=== PATIENT | male | born 1930 | race Caucasian/White ===

== ENCOUNTER 2016-11-21 15:00 | Emergency (ER) | payer MEDICARE, BC ==
[2016-11-21 16:21] VITALS: BP 131/62
--- NOTE | 2016-11-21 16:35 | UC ---
Laceration HPI - HPI Summary HPI Summary: Raymundo cut his chin while shaving today and couldn't stop the bleeding he is currently taking coumadin bleeding controlled upon arrival to his room at urgent care - History Of Current Complaint Chief Complaint: UCLaceration Stated Complaint: CUT ON CHIN Time Seen by Provider: 11/21/16 16:26 Hx Obtained From: Patient - Allergies/Home Medications Allergies/Adverse Reactions: Allergies Allergy/AdvReac Type Severity Reaction Status Date / Time No Known Allergies Allergy Verified 11/21/16 16:21 Home Medications: Home Medications Atorvastatin* [Lipitor 10 MG*] 5 mg PO DAILY 11/21/16 [History Confirmed ] Warfarin TAB(*) [Coumadin TAB(*)] 5 mg PO DAILY PRN 11/21/16 [History Confirmed 11/21/16] PMH/Surg Hx/FS Hx/Imm Hx Previously Healthy: Yes Cardiovascular History: Hypertension, Atrial Fibrillation Other History Of: Negative For: HIV, Hepatitis B, Hepatitis C - Surgical History Surgical History: Yes Surgery Procedure, Year, and Place: TONSILLECTOMY A YOUNG CHILD. 2000 BILATERAL CATARACT EXTRACTION WITH IOL IMPLANT, [facility] [place]. 1996 [place], [place] - Family History Known Family History: Positive: Cardiac Disease - parenst, Hypertension - parents Negative: Renal Disease, Blood Disorder - Social History Occupation: Retired Lives: With Family Alcohol Use: Occasionally Alcohol Amount: "MODERATELY" Substance Use Type: None Smoking Status (MU): Former Smoker Amount Used/How Often: 1/2 PPD Length of Time of Smoking/Using Tobacco: 11 YEARS Have You Smoked in the Last Year: No When Did the Patient Quit Smoking/Using Tobacco: 1962 - Immunization History Most Recent Tetanus Shot: 11/05 Review of Systems Constitutional: Negative Skin: Other - laceration on chin [id number] Eyes: Negative ENT: Negative Respiratory: Negative Cardiovascular: Negative Gastrointestinal: Negative Genitourinary: Negative Motor: Negative Neurovascular: Negative Musculoskeletal: Negative Neurological: Negative Psychological: Negative All Other Systems Reviewed And Are Negative: Yes Physical Exam Triage Information Reviewed: Yes Appearance: No Pain Distress, Well-Nourished Vital Signs: Initial Vital Signs Temp 98.4 F 11/21/16 16:12 Pulse 71 11/21/16 16:12 Resp 16 11/21/16 16:12 BP 131/62 11/21/16 16:12 Pulse Ox 100 11/21/16 16:12 Vital Signs Reviewed: Yes Eyes: Positive: Conjunctiva Clear ENT: Positive: Pharynx normal, TMs normal Neck: Positive: No Lymphadenopathy Respiratory: Positive: Lungs clear, Normal breath sounds, No respiratory distress, No accessory muscle use Cardiovascular: Positive: RRR, No Murmur, Pulses Normal, Brisk Capillary Refill Abdomen Description: Positive: Nontender, Soft Bowel Sounds: Positive: Present Musculoskeletal: Positive: No Edema Neurological: Positive: Alert Psychological Exam: Normal Skin: Positive: Other - chin small [id number] laceration- bleeding controlled with bandage Laceration Course/Dx - Differential Dx - Laceration/Wound Differental Diagnoses: Laceration Provider Diagnoses: simple laceration [id number] Discharge - Discharge Plan Condition: Stable Disposition: HOME Patient Education Materials: Laceration (ED) Referrals: Brina Sánchez MD [Primary Care Provider] - Additional Instructions: leave you bandage on your chin for 24 hours please have Wilmer nurse check your wound in the morning Please review your discharge instructions. If your symptoms do not improve please call your primary care provider or return to urgent care.
== END 2016-11-21 16:40 | disposition home or self-care (01) ==
LOC: UCEAST 15:00
DX: S01.81XA Laceration without foreign body of other part of head, initial encounter (principal); W45.8XXA Other foreign body or object entering through skin, initial encounter; Y93.E8 Activity, other personal hygiene; Y92.002 Bathroom of unspecified non-institutional (private) residence as the place of occurrence of the external cause; Y99.9 Unspecified external cause status; Z79.01 Long term (current) use of anticoagulants; I48.91 Unspecified atrial fibrillation; Z87.891 Personal history of nicotine dependence; Z95.1 Presence of aortocoronary bypass graft
CPT/HCPCS: 99212; G0463

== ENCOUNTER 2017-02-06 18:58 | Emergency (ER) | payer MEDICARE, BC ==
[2017-02-06 19:04] VITALS: BP 136/54
--- NOTE | 2017-02-06 19:12 | UC ---
Skin Complaint HPI - HPI Summary HPI Summary: 86 year old male cut his left hand with a razor. - History of Current Complaint Chief Complaint: UCLaceration Time Seen by Provider: 02/06/17 19:11 Stated Complaint: WOUND ON HAND Hx Obtained From: Patient Onset/Duration: Sudden Onset Skin Exposure Onset/Duration: Days Ago Onset Severity: Moderate Current Severity: Moderate - Allergy/Home Medications Allergies/Adverse Reactions: Allergies Allergy/AdvReac Type Severity Reaction Status Date / Time No Known Allergies Allergy Verified 02/06/17 19:05 Review of Systems Constitutional: Negative Skin: Other - left hand abrasion Eyes: Negative ENT: Negative Respiratory: Negative Cardiovascular: Negative Gastrointestinal: Negative Genitourinary: Negative Motor: Negative Neurovascular: Negative Musculoskeletal: Negative Neurological: Negative Psychological: Negative Is Patient Immunocompromised?: Yes All Other Systems Reviewed And Are Negative: Yes PMH/Surg Hx/FS Hx/Imm Hx Previously Healthy: Yes Other History Of: Negative For: HIV, Hepatitis B, Hepatitis C - Surgical History Surgical History: Yes Surgery Procedure, Year, and Place: TONSILLECTOMY A YOUNG CHILD. 2000 BILATERAL [place] [facility] [place] - Family History Known Family History: Positive: Cardiac Disease - parenst, Hypertension - parents Negative: Renal Disease, Blood Disorder - Social History Alcohol Use: Occasionally Alcohol Amount: "MODERATELY" Substance Use Type: None Smoking Status (MU): Former Smoker Amount Used/How Often: 1/2 PPD Length of Time of Smoking/Using Tobacco: 11 YEARS Have You Smoked in the Last Year: No When Did the Patient Quit Smoking/Using Tobacco: 1962 - Immunization History Most Recent Tetanus Shot: 11/05 Physical Exam Triage Information Reviewed: Yes Appearance: Well-Appearing Vital Signs: Initial Vital Signs Temp 37.1 C 02/06/17 19:01 Pulse 131 02/06/17 19:01 Resp 18 02/06/17 19:01 BP 136/54 02/06/17 19:01 Pulse Ox 97 02/06/17 19:01 Vital Signs Reviewed: Yes Eye Exam: Normal ENT Exam: Normal Dental Exam: Normal Neck exam: Normal Neck: Positive: 1 Respiratory Exam: Normal Cardiovascular Exam: Normal Abdominal Exam: Normal Musculoskeletal Exam: Normal Neurological Exam: Normal Psychological Exam: Normal Skin: Positive: Other - left hand abrasion Course/Dx - Course Course Of Treatment: silvernitrate placed over abrasion to stop bleeding - Diagnoses Provider Diagnoses: left hand abrasion Discharge - Discharge Plan Condition: Stable Disposition: HOME Prescriptions: Cephalexin CAP* [Keflex CAP*] 500 mg PO TID #15 cap Patient Education Materials: Puncture Wound (ED) Referrals: Brina Sánchez MD [Primary Care Provider] -
[2017-02-06] MEDS ORDERED: Silver Nitrate/Potassium Nitr* 1 EA STICK TOPICAL ONE (19:13)
[2017-02-06] MEDS ORDERED: Gelfoam Sponge SIZE 100* SPONGE TOPICAL ONE (19:14)
== END 2017-02-06 19:32 | disposition home or self-care (01) ==
LOC: UCEAST 18:58
DX: S60.512A Abrasion of left hand, initial encounter (principal); W26.8XXA Contact with other sharp object(s), not elsewhere classified, initial encounter
CPT/HCPCS: 99212; A9270-GY; G0463

== ENCOUNTER 2017-03-25 23:12 | Inpatient (IN) | payer MEDICARE, OTHER ==
[2017-03-26 00:50] LABS: Hematocrit 33 % (42-52); Hemoglobin 11.2 g/dl (14.0-18.0); Mean Corpuscular HGB Conc 34 g/dl (31-36); Mean Corpuscular Hemoglobin 32 pg (27-31); Mean Corpuscular Volume 94 fL (80-94); Mean Platelet Volume 8 um3 (7.4-10.4); Red Blood Count 3.53 10^6/ul (4.0-5.4); Red Cell Distribution Width 18 % (10.5-15); White Blood Count 10.7 10^3/ul (3.5-10.8)
[2017-03-26 00:54] LABS: Add Diff/Slide Review? Slide Review Added; Comments Flag Yes
[2017-03-26 01:06] LABS: Albumin 3.6 g/dL (3.2-5.2); BUN/Creatinine Ratio 21.1 (8-20); Calcium 8.5 mg/dL (8.6-10.3); EGFR African American 102.4 (>60); EGFR Non-African American 79.6 (>60); Globulin 2.5 g/dL (2-4); Potassium 3.6 mmol/L (3.5-5.0); Total Bilirubin 0.7 mg/dL (0.2-1.0); Total Protein 6.1 g/dL (6.4-8.9)
[2017-03-26 01:09] LABS: Troponin I 0.06 ng/mL (<0.04)
[2017-03-26 01:52] LABS: Urine Bacteria Absent (Absent); Urine Bilirubin Negative (Negative); Urine Glucose Negative (Negative); Urine Nitrite Negative (Negative)
--- NOTE | 2017-03-26 05:04 | ED ---
Jeramy Travis Benjamin, scribed for Romario Yoo MD on 03/26/17 at 0016 . Dizziness - HPI Summary HPI Summary: 87yo male BIBA c/o off-balance and weakness in the last few days. Pt describes his symptoms feeling like as if muscles werent responding. Pt was put off atorvastatin 4 weeks ago for 2 weeks, which helped him sleep better, but was then put back on 2 weeks ago. Pt states that he has been feeling worse since. Denies any pain anywhere. - History Of Current Complaint Chief Complaint: EDWeakness Stated Complaint: WEAKNESS,DIZZINESS Hx Obtained From: Patient Onset/Duration: Still Present Timing: Constant Severity Initially: Mild Severity Currently: Mild Character: Weak, Dizzy - off balance - Allergies/Home Medications Allergies/Adverse Reactions: Allergies Allergy/AdvReac Type Severity Reaction Status Date / Time No Known Allergies Allergy Verified 02/06/17 19:05 PMH/Surg Hx/FS Hx/Imm Hx Endocrine/Hematology History: Denies: Hx Diabetes, Hx Thyroid Disease Cardiovascular History: Reports: Hx Coronary Artery Disease - CHOLESTEROL CONTROL WITH MEDS, Hx Hypertension Denies: Hx Congestive Heart Failure, Hx Deep Vein Thrombosis, Hx Myocardial Infarction, Hx Pacemaker/ICD Respiratory History: Denies: Hx Asthma, Hx Chronic Obstructive Pulmonary Disease (COPD), Hx Lung Cancer, Hx Pneumonia, Hx Pulmonary Embolism GI History: Denies: Hx Gall Bladder Disease, Hx Gastrointestinal Bleed, Hx Ulcer, Hx Urosepsis History: Reports: Hx Kidney Stones - HX OF IN THE 50'S, Other Problems/ Disorders - ENLARGE PROSTATE Denies: Hx Renal Disease Musculoskeletal History: Reports: Hx Arthritis - RIGHT WRIST Sensory History: Reports: Hx Contacts or Glasses - READING, Hx Hearing Aid - BILATERAL Opthamlomology History: Reports: Hx Contacts or Glasses - READING Neurological History: Denies: Hx Dementia, Hx Migraine, Hx Seizures, Hx Transient Ischemic Attacks (TIA) Psychiatric History: Reports: Hx Depression - He states that he is a bit depressed, but not on medications. 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 2000 BILATERAL CATARACT EXTRACTION WITH IOL IMPLANT, [facility] [place]. 1996 CABG, [place] Hx Anesthesia Reactions: No Infectious Disease History: No Infectious Disease History: Reports: Hx Shingles Denies: Traveled Outside the [place] in Last 30 Days - Family History Known Family History: Positive: Cardiac Disease - parenst, Hypertension - parents Negative: Renal Disease, Blood Disorder - Social History Alcohol Use: Occasionally Alcohol Amount: "MODERATELY" Substance Use Type: Reports: None Smoking Status (MU): Former Smoker Amount Used/How Often: 1/2 PPD Length of Time of Smoking/Using Tobacco: 11 YEARS Have You Smoked in the Last Year: No Review of Systems Constitutional: Negative Eyes: Negative ENT: Negative Cardiovascular: Negative Respiratory: Negative Gastrointestinal: Negative Genitourinary: Negative Musculoskeletal: Negative Skin: Negative Neurological: Other - off balance Positive: Weakness Psychological: Normal All Other Systems Reviewed And Are Negative: Yes Physical Exam - Summary Physical Exam Summary: Appearance: Well-appearing, Well-nourished. NAD. Skin: Warm Eyes: Normal, EOMI, DILLON ENT: Normal Neck: Supple, nontender Respiratory: Clear to auscultation Cardiovascular: Normal S1 and S2. Irregularly irregular rate and rhythm consistent with A-fib. Abdomen: Soft, nontender Bowel: Present Musculoskeletal: Normal, Strength/ROM Intact Neurological: Normal, A&Ox3. CN 3-12 intact. Normal coordination with finger to nose. Normal strength in all 4 extremities Psychiatric: Normal NIH Stroke Scale: 0. Triage Information Reviewed: Yes Vital Signs On Initial Exam: Initial Vitals Temp Pulse Resp BP Pulse Ox 99 F 109 18 129/58 94 03/25/17 23:14 03/25/17 23:14 03/25/17 23:14 03/25/17 23:14 03/25/17 23:14 Vital Signs Reviewed: Yes - Weld Coma Scale Coma Scale Total: 15 Diagnostics - Vital Signs Vital Signs Temp Pulse Resp BP Pulse Ox 03/25/17 23:14 99 F 109 18 129/58 94 - Laboratory Lab Results: Lab Results 03/26/17 03/26/17 03/26/17 Range/Units 00:37 00:37 00:37 WBC 10.7 (3.5-10.8) 10^3/ul RBC 3.53 L (4.0-5.4) 10^6/ul Hgb 11.2 L (14.0-18.0) g/dl Hct 33 L (42-52) % MCV 94 (80-94) fL MCH 32 H (27-31) pg MCHC 34 (31-36) g/dl RDW 18 H (10.5-15) % Plt Count 272 (150-450) 10^3/ul MPV 8 (7.4-10.4) um3 Neut % (Auto) 85.2 H (38-83) % Lymph % (Auto) 5.9 L (25-47) % Major % (Auto) 7.8 (1-9) % Eos % (Auto) 0.3 (0-6) % Baso % (Auto) 0.8 (0-2) % Absolute Neuts (auto) 9.1 H (1.5-7.7) 10^3/ul Absolute Lymphs (auto) 0.6 L (1.0-4.8) 10^3/ul Absolute Monos (auto) 0.8 (0-0.8) 10^3/ul Absolute Eos (auto) 0 (0-0.6) 10^3/ul Absolute Basos (auto) 0.1 (0-0.2) 10^3/ul Absolute Nucleated RBC 0 10^3/ul Nucleated RBC % 0 INR (Anticoag Therapy) (0.77-1.02) APTT (26.0-36.3) seconds Sodium 138 (133-145) mmol/L Potassium 3.6 (3.5-5.0) mmol/L Chloride 106 (101-111) mmol/L Carbon Dioxide 25 (22-32) mmol/L Anion Gap 7 (2-11) mmol/L BUN 19 (6-24) mg/dL Creatinine 0.90 (0.67-1.17) mg/dL Est GFR ( Amer) 102.4 (>60) Est GFR (Non-Af Amer) 79.6 (>60) BUN/Creatinine Ratio 21.1 H (8-20) Glucose 135 H (70-100) mg/dL Lactic Acid 0.8 (0.5-2.0) mmol/L Calcium 8.5 L (8.6-10.3) mg/dL Magnesium 2.0 (1.9-2.7) mg/dL Total Bilirubin 0.70 (0.2-1.0) mg/dL AST 25 (13-39) U/L ALT 17 (7-52) U/L Alkaline Phosphatase 90 (34-104) U/L Total Creatine Kinase 225 H (10-223) U/L Myoglobin 623.2 H (17.4-105.7) ng/mL Troponin I 0.06 H* (<0.04) ng/mL Total Protein 6.1 L (6.4-8.9) g/dL Albumin 3.6 (3.2-5.2) g/dL Globulin 2.5 (2-4) g/dL Albumin/Globulin Ratio 1.4 (1-3) Urine Color Urine Appearance Urine pH (5-9) Ur Specific [place] (1.010-1.030) Urine Protein (Negative) Urine Ketones (Negative) Urine Blood (Negative) Urine Nitrate (Negative) Urine Bilirubin (Negative) Urine Urobilinogen (Negative) Ur Leukocyte Esterase (Negative) Urine WBC (Auto) (Absent) Urine RBC (Auto) (Absent) Ur Squamous Epith Cells (Absent) Urine Bacteria (Absent) Urine Glucose (Negative) Blood Type Antibody Screen 03/26/17 03/26/17 03/26/17 Range/Units 00:37 00:37 01:19 WBC (3.5-10.8) 10^3/ul RBC (4.0-5.4) 10^6/ul Hgb (14.0-18.0) g/dl Hct (42-52) % MCV (80-94) fL MCH (27-31) pg MCHC (31-36) g/dl RDW (10.5-15) % Plt Count (150-450) 10^3/ul MPV (7.4-10.4) um3 Neut % (Auto) (38-83) % Lymph % (Auto) (25-47) % Major % (Auto) (1-9) % Eos % (Auto) (0-6) % Baso % (Auto) (0-2) % Absolute Neuts (auto) (1.5-7.7) 10^3/ul Absolute Lymphs (auto) (1.0-4.8) 10^3/ul Absolute Monos (auto) (0-0.8) 10^3/ul Absolute Eos (auto) (0-0.6) 10^3/ul Absolute Basos (auto) (0-0.2) 10^3/ul Absolute Nucleated RBC 10^3/ul Nucleated RBC % INR (Anticoag Therapy) 1.54 H (0.77-1.02) APTT 32.6 (26.0-36.3) seconds Sodium (133-145) mmol/L Potassium (3.5-5.0) mmol/L Chloride (101-111) mmol/L Carbon Dioxide (22-32) mmol/L Anion Gap (2-11) mmol/L BUN (6-24) mg/dL Creatinine (0.67-1.17) mg/dL Est GFR ( Amer) (>60) Est GFR (Non-Af Amer) (>60) BUN/Creatinine Ratio (8-20) Glucose (70-100) mg/dL Lactic Acid (0.5-2.0) mmol/L Calcium (8.6-10.3) mg/dL Magnesium (1.9-2.7) mg/dL Total Bilirubin (0.2-1.0) mg/dL AST (13-39) U/L ALT (7-52) U/L Alkaline Phosphatase (34-104) U/L Total Creatine Kinase (10-223) U/L Myoglobin (17.4-105.7) ng/mL Troponin I (<0.04) ng/mL Total Protein (6.4-8.9) g/dL Albumin (3.2-5.2) g/dL Globulin (2-4) g/dL Albumin/Globulin Ratio (1-3) Urine Color Yellow Urine Appearance Clear Urine pH 5.0 (5-9) Ur Specific [place] 1.023 (1.010-1.030) Urine Protein Negative (Negative) Urine Ketones Trace H (Negative) Urine Blood 1+ H (Negative) Urine Nitrate Negative (Negative) Urine Bilirubin Negative (Negative) Urine Urobilinogen Negative (Negative) Ur Leukocyte Esterase Negative (Negative) Urine WBC (Auto) Trace(0-5/hpf) (Absent) Urine RBC (Auto) 1+(3-5/hpf) H (Absent) Ur Squamous Epith Cells Present H (Absent) Urine Bacteria Absent (Absent) Urine Glucose Negative (Negative) Blood Type O Negative Antibody Screen Negative 03/26/17 Range/Units 03:34 WBC (3.5-10.8) 10^3/ul RBC (4.0-5.4) 10^6/ul Hgb (14.0-18.0) g/dl Hct (42-52) % MCV (80-94) fL MCH (27-31) pg MCHC (31-36) g/dl RDW (10.5-15) % Plt Count (150-450) 10^3/ul MPV (7.4-10.4) um3 Neut % (Auto) (38-83) % Lymph % (Auto) (25-47) % Major % (Auto) (1-9) % Eos % (Auto) (0-6) % Baso % (Auto) (0-2) % Absolute Neuts (auto) (1.5-7.7) 10^3/ul Absolute Lymphs (auto) (1.0-4.8) 10^3/ul Absolute Monos (auto) (0-0.8) 10^3/ul Absolute Eos (auto) (0-0.6) 10^3/ul Absolute Basos (auto) (0-0.2) 10^3/ul Absolute Nucleated RBC 10^3/ul Nucleated RBC % INR (Anticoag Therapy) (0.77-1.02) APTT (26.0-36.3) seconds Sodium (133-145) mmol/L Potassium (3.5-5.0) mmol/L Chloride (101-111) mmol/L Carbon Dioxide (22-32) mmol/L Anion Gap (2-11) mmol/L BUN (6-24) mg/dL Creatinine (0.67-1.17) mg/dL Est GFR ( Amer) (>60) Est GFR (Non-Af Amer) (>60) BUN/Creatinine Ratio (8-20) Glucose (70-100) mg/dL Lactic Acid (0.5-2.0) mmol/L Calcium (8.6-10.3) mg/dL Magnesium (1.9-2.7) mg/dL Total Bilirubin (0.2-1.0) mg/dL AST (13-39) U/L ALT (7-52) U/L Alkaline Phosphatase (34-104) U/L Total Creatine Kinase (10-223) U/L Myoglobin (17.4-105.7) ng/mL Troponin I 0.06 H* (<0.04) ng/mL Total Protein (6.4-8.9) g/dL Albumin (3.2-5.2) g/dL Globulin (2-4) g/dL Albumin/Globulin Ratio (1-3) Urine Color Urine Appearance Urine pH (5-9) Ur Specific [place] (1.010-1.030) Urine Protein (Negative) Urine Ketones (Negative) Urine Blood (Negative) Urine Nitrate (Negative) Urine Bilirubin (Negative) Urine Urobilinogen (Negative) Ur Leukocyte Esterase (Negative) Urine WBC (Auto) (Absent) Urine RBC (Auto) (Absent) Ur Squamous Epith Cells (Absent) Urine Bacteria (Absent) Urine Glucose (Negative) Blood Type Antibody Screen Result Diagrams: 03/26/17 00:37 03/26/17 00:37 Lab Statement: Any lab studies that have been ordered have been reviewed, and results considered in the medical decision making process. - CT Head CT CT Interpretation: No Acute Changes CT Interpretation Completed By: Radiologist - ED physician has reviewed this radiology report and agrees. - EKG 2312. Cardiac Rate: Tachycardia EKG Rhythm: Atrial Fibrillation - 104bpm EKG Interpretation: RBBB Dizzy Course/Dx - Course Assessment/Plan: lives at indep living facility, likely gait instability with component of statin intolerance and muscle muscular involvement given labs and elevated myoglobin, ct negative, admitted for further care - Diagnoses Provider Diagnoses: Gait instability, Statin-induced myositis - Provider Notifications Discussed Care Of Patient With: Jaylan Velázquez Time Discussed With Above Provider: 04:59 Discharge - Discharge Plan Condition: Stable Disposition: ADMITTED TO [facility] Referrals: Brina Sánchez MD [Primary Care Provider] - The documentation as recorded by the Jeramy wilhelm Benjamin accurately reflects the service I personally performed and the decisions made by , Romario Yoo MD.
[2017-03-26] MEDS ORDERED: Ondansetron INJ* 2 MG/ML VIAL IV PRN (06:06)
[2017-03-26] MEDS ORDERED: Acetaminophen TAB* 325 MG PO PRN (06:06)
[2017-03-26] MEDS ORDERED: Albuterol 2.5 MG/3 ML NEB.SOL* (0.083%) INH PRN (06:06)
--- NOTE | 2017-03-26 06:27 | HP ---
H&P (Free Text) History and Physical: PCP: Awilda Sánchez MD Cardiology: Sarah Jesus MD Date/Time: 03/26/2017 0600 CC: BLE weakness, gait abnormality HPI: Mr Vora is an 87YO male HX CAD, AFIB, cardiomyopathy presents after getting down on the floor to pick remover pieces of a dropped phone, finding himself unable to get back up, and having to call EMS. He relates his BLE have been progressively weakening over the past year since being changed from lovastatin to atorvastatin. 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 However, it was recommended to restart as his cholesterol was increasing. He denies chest pain, SOB, N/V, palpitations, light-headedness, cough, congestion, F/C, or other issues. PMedHx CAD/4vCABG AFIB, chronic 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% HLD cholelithiasis nephrolithiasis gout BPH Ambulatory Orders Nursing to reconcile. Aspirin [Aspir-81] 81 mg PO BEDTIME 11/29/12 Finasteride TAB* [Proscar TAB*] 5 mg PO QPM 11/29/12 Lovastatin [Mevacor] 20 mg PO QPM 11/29/12 Tamsulosin CAP* [Flomax CAP*] 0.4 mg PO QPM 11/29/12 Warfarin TAB(*) [Coumadin TAB(*)] 2.5 mg PO DAILY PRN 11/29/12 Pilocarpine TAB (NF) 5 mg PO QPM 05/20/15 Atorvastatin* [Lipitor 10 MG*] 5 mg PO DAILY 11/21/16 Warfarin TAB(*) [Coumadin TAB(*)] 5 mg PO DAILY PRN 11/21/16 Cephalexin CAP* [Keflex CAP*] 500 mg PO TID #15 cap 02/06/17 Allergies No Known Allergies Allergy (Verified 02/06/17 19:05) PSurgHx OU cataract extractions tonsillectomy 4vCABG SocHx: former smoker, 1 glass wine daily, denies recreational drugs; full code status FamHx: reviewed, non-contributory to presentation ROS: as above, otherwise reviewed and all were negative vitals: Vital Signs Temp 37.2 C 03/25/17 23:14 Pulse 76 03/26/17 05:00 Resp 18 03/26/17 05:00 BP 108/58 03/26/17 02:00 Pulse Ox 93 03/26/17 05:00 Intake & Output 03/25/17 03/25/17 03/26/17 11:59 23:59 11:59 Weight 68.946 kg Constitutional: NAD, normally developed, well-nourished elderly white male HEENM: atraumatic; sclera/conjunctiva: anicteric/clear; hearing: clinically intact; oropharynx: clear, mucosa moist Neck: soft tissue: non-tender; thyroid: normal Pulmonary: clear to auscultation bilaterally, good aeration, no accessory muscle use CV: RR/RR, normal S1S2, no carotid bruit, no jugular venous distention, 2+ B DP/ PT, no edema Abdominal: soft, non-distended, non-tender, no rebound/guarding/rigidity, normoactive bowel sounds, no hepatosplenomegaly or masses, no costovertebral angle tenderness Musculoskeletal: general: grossly intact, no palpable tenderness Integumental: normal appearance and texture of exposed skin Psychiatric orientation: AA&O to PPS affect: calm mood: cooperative eye contact: good content: reliable responses: timely insight: fair Testing: Lab Results 03/26/17 03/26/17 03/26/17 Range/Units 00:37 00:37 00:37 WBC 10.7 (3.5-10.8) 10^3/ul RBC 3.53 L (4.0-5.4) 10^6/ul Hgb 11.2 L (14.0-18.0) g/dl Hct 33 L (42-52) % MCV 94 (80-94) fL MCH 32 H (27-31) pg MCHC 34 (31-36) g/dl RDW 18 H (10.5-15) % Plt Count 272 (150-450) 10^3/ul MPV 8 (7.4-10.4) um3 Neut % (Auto) 85.2 H (38-83) % Lymph % (Auto) 5.9 L (25-47) % [place] % (Auto) 7.8 (1-9) % Eos % (Auto) 0.3 (0-6) % Baso % (Auto) 0.8 (0-2) % Absolute Neuts (auto) 9.1 H (1.5-7.7) 10^3/ul Absolute Lymphs (auto) 0.6 L (1.0-4.8) 10^3/ul Absolute Monos (auto) 0.8 (0-0.8) 10^3/ul Absolute Eos (auto) 0 (0-0.6) 10^3/ul Absolute Basos (auto) 0.1 (0-0.2) 10^3/ul Absolute Nucleated RBC 0 10^3/ul Nucleated RBC % 0 INR (Anticoag Therapy) (0.77-1.02) APTT (26.0-36.3) seconds Sodium 138 (133-145) mmol/L Potassium 3.6 (3.5-5.0) mmol/L Chloride 106 (101-111) mmol/L Carbon Dioxide 25 (22-32) mmol/L Anion Gap 7 (2-11) mmol/L BUN 19 (6-24) mg/dL Creatinine 0.90 (0.67-1.17) mg/dL Est GFR ( Amer) 102.4 (>60) Est GFR (Non-Af Amer) 79.6 (>60) BUN/Creatinine Ratio 21.1 H (8-20) Glucose 135 H (70-100) mg/dL Lactic Acid 0.8 (0.5-2.0) mmol/L Calcium 8.5 L (8.6-10.3) mg/dL Magnesium 2.0 (1.9-2.7) mg/dL Total Bilirubin 0.70 (0.2-1.0) mg/dL AST 25 (13-39) U/L ALT 17 (7-52) U/L Alkaline Phosphatase 90 (34-104) U/L Total Creatine Kinase 225 H (10-223) U/L Myoglobin 623.2 H (17.4-105.7) ng/mL Troponin I 0.06 H* (<0.04) ng/mL Total Protein 6.1 L (6.4-8.9) g/dL Albumin 3.6 (3.2-5.2) g/dL Globulin 2.5 (2-4) g/dL Albumin/Globulin Ratio 1.4 (1-3) Urine Color Urine Appearance Urine pH (5-9) Ur Specific [place] (1.010-1.030) Urine Protein (Negative) Urine Ketones (Negative) Urine Blood (Negative) Urine Nitrate (Negative) Urine Bilirubin (Negative) Urine Urobilinogen (Negative) Ur Leukocyte Esterase (Negative) Urine WBC (Auto) (Absent) Urine RBC (Auto) (Absent) Ur Squamous Epith Cells (Absent) Urine Bacteria (Absent) Urine Glucose (Negative) Blood Type Antibody Screen 03/26/17 03/26/17 03/26/17 Range/Units 00:37 00:37 01:19 WBC (3.5-10.8) 10^3/ul RBC (4.0-5.4) 10^6/ul Hgb (14.0-18.0) g/dl Hct (42-52) % MCV (80-94) fL MCH (27-31) pg MCHC (31-36) g/dl RDW (10.5-15) % Plt Count (150-450) 10^3/ul MPV (7.4-10.4) um3 Neut % (Auto) (38-83) % Lymph % (Auto) (25-47) % [place] % (Auto) (1-9) % Eos % (Auto) (0-6) % Baso % (Auto) (0-2) % Absolute Neuts (auto) (1.5-7.7) 10^3/ul Absolute Lymphs (auto) (1.0-4.8) 10^3/ul Absolute Monos (auto) (0-0.8) 10^3/ul Absolute Eos (auto) (0-0.6) 10^3/ul Absolute Basos (auto) (0-0.2) 10^3/ul Absolute Nucleated RBC 10^3/ul Nucleated RBC % INR (Anticoag Therapy) 1.54 H (0.77-1.02) APTT 32.6 (26.0-36.3) seconds Sodium (133-145) mmol/L Potassium (3.5-5.0) mmol/L Chloride (101-111) mmol/L Carbon Dioxide (22-32) mmol/L Anion Gap (2-11) mmol/L BUN (6-24) mg/dL Creatinine (0.67-1.17) mg/dL Est GFR ( Amer) (>60) Est GFR (Non-Af Amer) (>60) BUN/Creatinine Ratio (8-20) Glucose (70-100) mg/dL Lactic Acid (0.5-2.0) mmol/L Calcium (8.6-10.3) mg/dL Magnesium (1.9-2.7) mg/dL Total Bilirubin (0.2-1.0) mg/dL AST (13-39) U/L ALT (7-52) U/L Alkaline Phosphatase (34-104) U/L Total Creatine Kinase (10-223) U/L Myoglobin (17.4-105.7) ng/mL Troponin I (<0.04) ng/mL Total Protein (6.4-8.9) g/dL Albumin (3.2-5.2) g/dL Globulin (2-4) g/dL Albumin/Globulin Ratio (1-3) Urine Color Yellow Urine Appearance Clear Urine pH 5.0 (5-9) Ur Specific [place] 1.023 (1.010-1.030) Urine Protein Negative (Negative) Urine Ketones Trace H (Negative) Urine Blood 1+ H (Negative) Urine Nitrate Negative (Negative) Urine Bilirubin Negative (Negative) Urine Urobilinogen Negative (Negative) Ur Leukocyte Esterase Negative (Negative) Urine WBC (Auto) Trace(0-5/hpf) (Absent) Urine RBC (Auto) 1+(3-5/hpf) H (Absent) Ur Squamous Epith Cells Present H (Absent) Urine Bacteria Absent (Absent) Urine Glucose Negative (Negative) Blood Type O Negative Antibody Screen Negative 03/26/17 Range/Units 03:34 WBC (3.5-10.8) 10^3/ul RBC (4.0-5.4) 10^6/ul Hgb (14.0-18.0) g/dl Hct (42-52) % MCV (80-94) fL MCH (27-31) pg MCHC (31-36) g/dl RDW (10.5-15) % Plt Count (150-450) 10^3/ul MPV (7.4-10.4) um3 Neut % (Auto) (38-83) % Lymph % (Auto) (25-47) % [place] % (Auto) (1-9) % Eos % (Auto) (0-6) % Baso % (Auto) (0-2) % Absolute Neuts (auto) (1.5-7.7) 10^3/ul Absolute Lymphs (auto) (1.0-4.8) 10^3/ul Absolute Monos (auto) (0-0.8) 10^3/ul Absolute Eos (auto) (0-0.6) 10^3/ul Absolute Basos (auto) (0-0.2) 10^3/ul Absolute Nucleated RBC 10^3/ul Nucleated RBC % INR (Anticoag Therapy) (0.77-1.02) APTT (26.0-36.3) seconds Sodium (133-145) mmol/L Potassium (3.5-5.0) mmol/L Chloride (101-111) mmol/L Carbon Dioxide (22-32) mmol/L Anion Gap (2-11) mmol/L BUN (6-24) mg/dL Creatinine (0.67-1.17) mg/dL Est GFR ( Amer) (>60) Est GFR (Non-Af Amer) (>60) BUN/Creatinine Ratio (8-20) Glucose (70-100) mg/dL Lactic Acid (0.5-2.0) mmol/L Calcium (8.6-10.3) mg/dL Magnesium (1.9-2.7) mg/dL Total Bilirubin (0.2-1.0) mg/dL AST (13-39) U/L ALT (7-52) U/L Alkaline Phosphatase (34-104) U/L Total Creatine Kinase (10-223) U/L Myoglobin (17.4-105.7) ng/mL Troponin I 0.06 H* (<0.04) ng/mL Total Protein (6.4-8.9) g/dL Albumin (3.2-5.2) g/dL Globulin (2-4) g/dL Albumin/Globulin Ratio (1-3) Urine Color Urine Appearance Urine pH (5-9) Ur Specific [place] (1.010-1.030) Urine Protein (Negative) Urine Ketones (Negative) Urine Blood (Negative) Urine Nitrate (Negative) Urine Bilirubin (Negative) Urine Urobilinogen (Negative) Ur Leukocyte Esterase (Negative) Urine WBC (Auto) (Absent) Urine RBC (Auto) (Absent) Ur Squamous Epith Cells (Absent) Urine Bacteria (Absent) Urine Glucose (Negative) Blood Type Antibody Screen ECG, personally reviewed: AFIB RBBB rate 104, T-wave inversions III/AVF, occasional PVC; no comparison available CXR, personally reviewed: no acute process CT brain WO, personally reviewed: No acute brain parenchymal abnormality. No hemorrhage, mass, or acute territorial infarct. Atrophy and chronic small vessel ischemic changes. Mucoperiosteal thickening paranasal sinuses with fluid in left maxillary sinus. Visualized mastoid air cells clear. Impression: 87M presenting with gradual onset BLE weakness coinciding with changing lovastatin to atorvastatin culminating tonight in a fall from which he could not get up; elevated total CK & myoglobin DIAGNOSIS & PLAN Primary gait abnormality : PT evaluation : hold statins for now : trend total CK & myoglobin : supplemental oxygen : supportive care elevated troponin, no baseline to compare : suspect 2nd AFIB : trend : telemetry Secondary CAD/4vCABG : review meds once reconciled AFIB, chronic : review meds once reconciled 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% : review meds once reconciled HLD : hold statins as above gout : review meds once reconciled BPH : review meds once reconciled Admission Rational: observation for gait abnormality & fall DVTp: continue warfarin Code Status: full
[2017-03-26 07:53] LABS: Troponin I 0.06 ng/mL (<0.04)
--- NOTE | 2017-03-26 08:13 | RAD ---
HISTORY: Weakness COMPARISONS: None VIEWS: 1: frontal portable view of the chest at 12:15 AM FINDINGS: LINES AND TUBES: None. CARDIOMEDIASTINAL SILHOUETTE: The cardiomediastinal silhouette is normal for portable technique. PLEURA: The costophrenic angles are sharp. No pleural abnormalities are noted. LUNG PARENCHYMA: There is minimal patchy alveolar opacification of left lung base ABDOMEN: The upper abdomen is clear. There is no subphrenic gas. BONES AND SOFT TISSUES: The patient is status post median sternotomy. IMPRESSION: MINIMAL PATCHY ATELECTASIS VERSUS EARLY CONSOLIDATION OF THE LEFT LUNG BASE
--- NOTE | 2017-03-26 08:20 | RAD ---
HISTORY: Weakness COMPARISONS: None TECHNIQUE: Multiple contiguous axial CT scans were obtained of the head without intravenous contrast. FINDINGS: HEMORRHAGE/INFARCT: There is no hemorrhage or acute infarct. MASSES/SHIFT: There is no mass or shift. EXTRA-AXIAL SPACES: There are no extra-axial fluid collections. SULCI AND VENTRICLES: The sulci and ventricles are normal in size and position for the patient's stated age. CEREBRUM: There is mild hypoattenuation of the periventricular and subcortical white matter. BRAINSTEM: There are no focal parenchymal abnormalities. CEREBELLUM: There are no focal parenchymal abnormalities. VESSELS: There is calcification of the cavernous segments of the internal carotid arteries bilaterally and of the distal vertebral arteries bilaterally. PARANASAL SINUSES: There is mucosal thickening of ethmoid air cells and maxillary sinuses bilaterally with air-fluid levels within maxillary sinuses bilaterally. ORBITS: The orbits are unremarkable. BONES AND SOFT TISSUE: No bone or soft tissue abnormalities are noted. OTHER: None IMPRESSION: 1. NO ACUTE INTRACRANIAL PATHOLOGY. 2. CHRONIC SMALL VESSEL ISCHEMIC CHANGES. 3. MODERATE SINUS MUCOSAL INFLAMMATORY DISEASE, WITH AIR-FLUID LEVELS IN THE MAXILLARY SINUSES BILATERALLY. IN THE CORRECT CLINICAL SETTING, THIS MAY REPRESENT ACUTE SINUSITIS
[2017-03-26 10:18] LABS: Phosphorus 2.9 mg/dL (2.5-5.0)
[2017-03-26] MEDS: Docusate CAP* 100 MG PO SCH ×2 (10:38→21:47)
[2017-03-27] MEDS: Omeprazole CAP* 20 MG PO SCH (06:25)
[2017-03-27 06:29] LABS: Hematocrit 32 % (42-52); Mean Corpuscular HGB Conc 34 g/dl (31-36); Mean Corpuscular Hemoglobin 32 pg (27-31); Mean Corpuscular Volume 93 fL (80-94); Mean Platelet Volume 8 um3 (7.4-10.4); Red Blood Count 3.44 10^6/ul (4.0-5.4); Red Cell Distribution Width 17 % (10.5-15); White Blood Count 11.4 10^3/ul (3.5-10.8)
[2017-03-27 06:50] LABS: Albumin 3.1 g/dL (3.2-5.2); BUN/Creatinine Ratio 22.7 (8-20); Calcium 8.4 mg/dL (8.6-10.3); EGFR African American 146.5 (>60); EGFR Non-African American 113.9 (>60); Globulin 2.4 g/dL (2-4); Potassium 3.6 mmol/L (3.5-5.0); Total Bilirubin 1.1 mg/dL (0.2-1.0); Total Protein 5.5 g/dL (6.4-8.9)
[2017-03-27 07:13] LABS: Troponin I 0.05 ng/mL (<0.04)
[2017-03-27] MEDS ORDERED: Warfarin TAB(*) 5 MG PO ONE ×2 (09:00→17:00)
[2017-03-27] MEDS: Finasteride TAB* 5 MG PO SCH (10:19)
[2017-03-27] MEDS: Docusate CAP* 100 MG PO SCH ×3 (10:19→22:03)
[2017-03-27 11:47] LABS: C Reactive Protein 51.84 mg/L (< 5.00)
--- NOTE | 2017-03-27 12:57 | RAD ---
HISTORY: Cough COMPARISONS: March 26, 2017 VIEWS: 4: Frontal dual-energy and lateral views of the chest. FINDINGS: CARDIOMEDIASTINAL SILHOUETTE: The cardiomediastinal silhouette is normal. ROSALVA: The rosalva are normal. PLEURA: The costophrenic angles are sharp. No pleural abnormalities are noted. LUNG PARENCHYMA: There is hyperinflation with flattening of the diaphragm and expansion of the AP diameter of the chest. There is patchy alveolar opacification of the left lower lung near the diaphragm and angle localizing to the left upper lobe. This is progressed from the previous examination. ABDOMEN: The upper abdomen is clear. There is no subphrenic gas. BONES AND SOFT TISSUES: The patient is status post median sternotomy. OTHER: None. IMPRESSION: PROGRESSION OF AIRSPACE DISEASE OF THE LEFT LOWER LUNG. RECOMMEND CONTINUED FOLLOW-UP UNTIL RESOLUTION TO EXCLUDE UNDERLYING PULMONARY PARENCHYMAL PATHOLOGY.
[2017-03-27] MEDS ORDERED: Azithromycin IV(*) 500 MG in D5W 250 ML BAG IVPB ONE (21:00)
[2017-03-27] MEDS ORDERED: Azithromycin IV(*) 500 MG in NS 0.9% 250 ML* 250 ML IVPB ONE (21:00)
[2017-03-27] MEDS: Tamsulosin CAP* 0.4 MG PO SCH (22:03)
[2017-03-28 06:53] LABS: Hematocrit 33 % (42-52); Mean Corpuscular HGB Conc 34 g/dl (31-36); Mean Corpuscular Hemoglobin 32 pg (27-31); Mean Corpuscular Volume 93 fL (80-94); Mean Platelet Volume 8 um3 (7.4-10.4); Red Blood Count 3.48 10^6/ul (4.0-5.4); Red Cell Distribution Width 17 % (10.5-15); White Blood Count 10.7 10^3/ul (3.5-10.8)
[2017-03-28 07:01] LABS: Add Diff/Slide Review? Slide Review Added; BUN/Creatinine Ratio 20.3 (8-20); C Reactive Protein 70.32 mg/L (< 5.00); Calcium 8.5 mg/dL (8.6-10.3); Comments Flag Yes; EGFR African American 151.8 (>60); Potassium 3.5 mmol/L (3.5-5.0)
[2017-03-28] MEDS: Omeprazole CAP* 20 MG PO SCH (07:33)
[2017-03-28 08:26] LABS: Hypochromasia 1+
[2017-03-28] MEDS: Finasteride TAB* 5 MG PO SCH (09:13)
[2017-03-28] MEDS: Docusate CAP* 100 MG PO SCH ×2 (09:13→22:28)
[2017-03-28] MEDS: cefTRIAXone* 1 GM in NS 0.9% 50 ML BAG IVPB SCH (12:26)
[2017-03-28] MEDS ORDERED: Warfarin TAB(*) 5 MG PO ONE (17:00)
[2017-03-28] MEDS: Tamsulosin CAP* 0.4 MG PO SCH (22:28)
[2017-03-28] MEDS: Azithromycin IV(*) 500 MG in NS 0.9% 250 ML* 250 ML IVPB SCH (22:28)
[2017-03-29] MEDS: Omeprazole CAP* 20 MG PO SCH (06:52)
[2017-03-29 07:50] LABS: Hematocrit 31 % (42-52); Hemoglobin 10.7 g/dl (14.0-18.0); Mean Corpuscular HGB Conc 34 g/dl (31-36); Mean Corpuscular Hemoglobin 32 pg (27-31); Mean Corpuscular Volume 93 fL (80-94); Mean Platelet Volume 8 um3 (7.4-10.4); Red Blood Count 3.37 10^6/ul (4.0-5.4); Red Cell Distribution Width 17 % (10.5-15); White Blood Count 9.8 10^3/ul (3.5-10.8)
[2017-03-29 08:11] LABS: BUN/Creatinine Ratio 17.9 (8-20); C Reactive Protein 55.17 mg/L (< 5.00); Calcium 8.4 mg/dL (8.6-10.3); EGFR Non-African American 111.9 (>60); Globulin 2.6 g/dL (2-4); Potassium 3.2 mmol/L (3.5-5.0); Total Bilirubin 0.7 mg/dL (0.2-1.0); Total Protein 5.6 g/dL (6.4-8.9)
[2017-03-29] MEDS: Docusate CAP* 100 MG PO SCH ×2 (08:58→22:15)
[2017-03-29] MEDS: Finasteride TAB* 5 MG PO SCH (08:58)
[2017-03-29] MEDS: Potassium Chlor TAB* 20 MEQ TAB.ER PO SCH ×2 (11:58→16:16)
[2017-03-29] MEDS: cefTRIAXone* 1 GM in NS 0.9% 50 ML BAG IVPB SCH (11:58)
[2017-03-29] MEDS ORDERED: Warfarin TAB(*) 5 MG PO ONE (17:00)
[2017-03-29] MEDS: Azithromycin IV(*) 500 MG in NS 0.9% 250 ML* 250 ML IVPB SCH (22:15)
[2017-03-29] MEDS: Tamsulosin CAP* 0.4 MG PO SCH (22:15)
[2017-03-30] MEDS: Omeprazole CAP* 20 MG PO SCH (06:48)
[2017-03-30] MEDS: Finasteride TAB* 5 MG PO SCH (07:24)
[2017-03-30] MEDS: Docusate CAP* 100 MG PO SCH (07:25)
[2017-03-30 08:03] LABS: Hematocrit 32 % (42-52); Hemoglobin 10.8 g/dl (14.0-18.0); Mean Corpuscular HGB Conc 34 g/dl (31-36); Mean Corpuscular Hemoglobin 32 pg (27-31); Mean Corpuscular Volume 93 fL (80-94); Mean Platelet Volume 8 um3 (7.4-10.4); Red Blood Count 3.41 10^6/ul (4.0-5.4); Red Cell Distribution Width 17 % (10.5-15); White Blood Count 9.1 10^3/ul (3.5-10.8)
[2017-03-30 08:24] LABS: BUN/Creatinine Ratio 17.1 (8-20); C Reactive Protein 36.4 mg/L (< 5.00); Calcium 8.8 mg/dL (8.6-10.3); EGFR African American 136.9 (>60); EGFR Non-African American 106.4 (>60); Potassium 3.6 mmol/L (3.5-5.0)
[2017-03-30 11:02] VITALS: BP 110/63
[2017-03-30] MEDS: cefTRIAXone* 1 GM in NS 0.9% 50 ML BAG IVPB SCH (12:32)
--- NOTE | 2017-03-30 12:59 | TRS ---
CC: [facility]; Piotr Jesus MD; Brina Sánchez MD DISCHARGE SUMMARY: DATE OF ADMISSION: 03/26/17. DATE OF DISCHARGE: 03/30/17. TRANSFER DIAGNOSES: 1. Pneumonia. 2. Rhabdomyolysis, either secondary to statins, versus being on the floor and struggling to get up. 3. Chronic atrial fibrillation. 4. Maxillary sinus inflammation on CT.. 5. Xerostomia. 6. Coronary artery disease status post coronary artery bypass surgery. 7. Anemia of acute illness. 8. History of reduced ejection fraction 40% to 45%. 9. Cholelithiasis. 10. Nephrolithiasis. 11. History of benign prostatic hyperplasia. 12. History of vitamin D deficiency. 13. Hypokalemia, resolved. 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 He had been feeling weak recently. Please see the dictated admission note for details of the present illness, past medical history, family history, social and personal history, review of systems, and physical examination. LABORATORY DATA: CBC on admission: WBC 10.7, H and H 11.2/33, MCV 94, PLT 272, 000. Subsequent white count went up to 11.4 on 03/27/17 was down to 9.1 on 03/30. INRs were 1.54 on 03/26/17, and then up to 2.86 on 03/30/17. Chemistries: On admission 03/26/17, sodium 138, potassium 3.6, chloride 106, CO2 25, BUN and creatinine 19/0.90, glucose 135, calcium 8.5. Rest of the comprehensive metabolic panel was essentially within normal limits. Subsequent chemistries remained in the normal range except for potassium going down to 3.2 on 03/29/17 , repleted with up to 3.6 on 03/30/17. On admission, he had a mildly elevated troponin, was serially followed and was 0.06, 0.06, and then 0.05. Total CK on 03/26/17 was 225, repeat was 470 on 03/26/17, and came down to 459 on 03/27/17, and 221 on 03/28/17. Myoglobin was 623 on 03/26/17, and 411.5 on 03/26/17, and 168 on 03/27/17, and 95 on 03/28/17. Procalcitonin was 0.01 on 03/27/17, less than 0.1 on 03/30/17. Urinalysis on 03/26/17 yellow, clear, specific gravity 1.023, pH 5, dipstick positive for trace ketones, 1+ blood, 1+ rbc's. Urine had squamous epithelial cells present. Sputum Gram stain on 03/28/17 showed 3+ neutrophils, 1+ epithelial cells, 3+ gram-positive cocci, 1+ gram- negative coccobacilli, 1+ gram-positive bacilli. Blood type was O negative. IMAGING: Chest x-ray on 03/26/17 showed minimal patchy atelectasis versus early consolidation of the left lung base. Brain CT on 03/26/17, showed no acute intracranial pathology, chronic small vessel ischemic changes, moderate sinus mucosa with inflammatory disease with air fluid levels in the maxillary sinus bilaterally. Chest x-ray on 03/27/17, showed progression of airspace disease in the left lower lung, recommended continued followup until resolution. HOSPITAL COURSE: Patient was initially admitted. It was felt that his primary problem was his weakness and it was decided to hold his atorvastatin, trend total CK and myoglobin and give supportive care. With regards to his elevated troponin, it was felt to be due to his atrial fib, and it was felt that he should be placed on telemetry and it should be trended. Initially he remained quite weak. He states that he has not felt well since he was placed back on atorvastatin. On the day following admission, he was coughing. Chest x-ray was repeated and the increased infiltrate was noted. He was started on antibiotics. He received azithromycin and ceftriaxone. With treatment of his antibiotics his cough improved. He received physical therapy while in the hospital. His strength improved. He remained in atrial fib with occasional pauses on telemetry, no other arrhythmias. His sputum C and S is still pending at the time of discharge. He had improved. He received 3 days azithromycin 500 mg. PHYSICAL EXAMINATION: At the time of discharge his vital signs are blood pressure 110/63, pulse 82, respirations 16, temperature 97.2. Of note, he was afebrile during his hospitalization, O2 sat was 99% on room air. On exam, his lungs which had shown rales at the left base were clear with diminished breath sounds at the left base. Heart was irregularly irregular. Abdomen was nontender. He had no calf tenderness or edema. It was felt that he was stable for discharge. At the time of discharge, I had communication with Mary and reviewed orders. His diet is regular. His allergies were none. His activity is up as tolerated. We had an advanced care planning discussion. We discussed the options for resuscitation versus no resuscitation. At this point, he wants to be a full code. His son Jairon was present for this discussion. His diet will be regular at the time of discharge. Allergies, none. Activity up as tolerated. MEDICATIONS: 1. Flomax 0.4 mg p.o. q. evening. 2. Finasteride 5 mg p.o. daily. 3. Warfarin 2.5 mg p.o. daily, start 03/31. 4. Aspirin 81 mg p.o. daily. 5. Acetaminophen 650 mg p.o., q. 4 h. p.r.n. pain. 6. Cefuroxime 500 mg p.o. twice a day for 5 days. 7. Pilocarpine 5 mg p.o. t.i.d. 8. Xylitol mints 1 p.o. at h.s. 9. Biotene mouth wash 1 p.o. at h.s. 10. Vitamin D3 at 2000 units p.o. daily. 11. Colace 200 mg p.o. daily as needed for constipation. He is a full code. Physical therapy is being ordered. He should have an INR on 04/01/17. He should have hot packs to his right wrist because of erythema at the right wrist where the previous IV had been inserted. [id number]/[facility] #: [id number] MTDD
== END 2017-03-30 13:40 | DRG 557 ==
LOC: ED 23:12 → MED 03-26 06:02 → OBSVTOIN 03-27 10:33
PROVIDERS: ADMIT Hospitalist; ATTEND Internal Medicine Geriatric Medicine
DX: M62.82 Rhabdomyolysis (principal); J18.9 Pneumonia, unspecified organism; I42.9 Cardiomyopathy, unspecified; I48.2 Chronic atrial fibrillation; D64.9 Anemia, unspecified; Z95.1 Presence of aortocoronary bypass graft; I25.10 Atherosclerotic heart disease of native coronary artery without angina pectoris; E78.5 Hyperlipidemia, unspecified; N40.0 Benign prostatic hyperplasia without lower urinary tract symptoms; M10.9 Gout, unspecified; R26.9 Unspecified abnormalities of gait and mobility; R74.8 Abnormal levels of other serum enzymes; M19.031 Primary osteoarthritis, right wrist; F32.9 Major depressive disorder, single episode, unspecified; Z96.1 Presence of intraocular lens; R40.2412 Glasgow coma scale score 13-15, at arrival to emergency department; J32.0 Chronic maxillary sinusitis; K11.7 Disturbances of salivary secretion; E87.6 Hypokalemia; T46.6X5A Adverse effect of antihyperlipidemic and antiarteriosclerotic drugs, initial encounter; Z98.42 Cataract extraction status, left eye; Z98.41 Cataract extraction status, right eye; Z87.891 Personal history of nicotine dependence; Z87.442 Personal history of urinary calculi; Z97.4 Presence of external hearing-aid; Z85.828 Personal history of other malignant neoplasm of skin; Z82.49 Family history of ischemic heart disease and other diseases of the circulatory system; Z72.89 Other problems related to lifestyle; Y92.9 Unspecified place or not applicable; Z79.01 Long term (current) use of anticoagulants; Z79.82 Long term (current) use of aspirin
CPT/HCPCS: 36415; 70450; 71010; 71020; 80048; 80053; 81003; 81015; 82550; 83605; 83735; 83874; 84100; 84145; 84484; 85025; 85027; 85610; 85730; 86140; 86850; 86900; 86901; 87070; 87205; 93005; A9270-GY; G0378; G8978-GP-CJ; G8979-GP-CI; J0456; J0696

== ENCOUNTER 2018-01-18 20:49 | Inpatient (IN) | payer MEDICARE, BC ==
--- NOTE | 2018-01-18 21:19 | ED ---
Head Injury - HPI Summary HPI Summary: The pt is an 87 y/o male BIBA c/o of a head injury status post a mechanical fall at 20:00 today. He lost balance and fell hitting his aleah occipital part of his head and injuring his LUE. The pain rated 4/10 in intensity is descried as aching. He arrived from [facility] in [place]. The pt reports dizziness and weakness but denies abd pain, and neck pain. - History Of Current Complaint Chief Complaint: EDHeadInjury Stated Complaint: FALL, DIZZINESS Time Seen by Provider: 01/18/18 21:07 Hx Obtained From: Patient Mechanism Of Injury: Fall From A Standing Position Onset/Duration: Started Hours Ago - At 1999 today, Still Present Severity Currently: Mild Pain Intensity: 4 Pain Scale Used: 0-10 Numeric Location of Head Injury: Occipital Character: Aching Associated Signs And Symptoms: Negative - Neck pain, abdominal pain, Other: - LUE abbrasion - Allergies/Home Medications Allergies/Adverse Reactions: Allergies Allergy/AdvReac Type Severity Reaction Status Date / Time No Known Allergies Allergy Verified 02/06/17 19:05 PMH/Surg Hx/FS Hx/Imm Hx Previously Healthy: No Endocrine/Hematology History: Denies: Hx Diabetes, Hx Thyroid Disease Cardiovascular History: Reports: Hx Coronary Artery Disease, Hx Hypertension Denies: Hx Congestive Heart Failure, Hx Deep Vein Thrombosis, Hx Myocardial Infarction, Hx Pacemaker/ICD Comment Only: Other Cardiovascular Problems/Disorders - DIFIBRILATION Respiratory History: Denies: Hx Asthma, Hx Chronic Obstructive Pulmonary Disease (COPD), Hx Lung Cancer, Hx Pneumonia, Hx Pulmonary Embolism GI History: Reports: Other GI Disorders - Pt reports "calcium lump" in throat Denies: Hx Gall Bladder Disease, Hx Gastrointestinal Bleed, Hx Ulcer, Hx Urosepsis History: Reports: Hx Kidney Stones - HX OF IN THE 50'S, Other Problems/ Disorders - ENLARGE PROSTATE Denies: Hx Renal Disease Musculoskeletal History: Reports: Hx Arthritis - RIGHT WRIST, Hx Rheumatoid Arthritis - MORE ON THE RIGHT WRIST THAN THE LEFT Sensory History: Reports: Hx Contacts or Glasses, Hx Hearing Aid Opthamlomology History: Reports: Hx Contacts or Glasses Neurological History: Denies: Hx Dementia, Hx Migraine, Hx Seizures, Hx Transient Ischemic Attacks (TIA) Psychiatric History: Reports: Hx Depression - He states that he is a bit depressed, but not on medications. 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 2000 [place] [facility] [place] MARCIA Hx Anesthesia Reactions: No Infectious Disease History: No Infectious Disease History: Reports: Hx Shingles, History Other Infectious Disease - Lyme's Disease Denies: Traveled Outside the [place] in Last 30 Days - Family History Known Family History: Positive: Cardiac Disease - parenst, Hypertension - parents Negative: Renal Disease, Blood Disorder - Social History Occupation: Retired Lives: Detention - [facility] [place], [place] Alcohol Use: Daily Alcohol Amount: 3 oz Substance Use Type: Reports: None Hx Tobacco Use: Yes Smoking Status (MU): Former Smoker Amount Used/How Often: 1/2 PPD Length of Time of Smoking/Using Tobacco: 11 YEARS Have You Smoked in the Last Year: No Review of Systems Constitutional: Other - Positive: dizziness Negative: Abdominal Pain Musculoskeletal: Negative - Neck pain Positive: Other - Positive: Falls, Head injury (occipital region) Positive: Other - Positive: L elbow abrassion without active bleeding Positive: Weakness All Other Systems Reviewed And Are Negative: Yes Physical Exam - Summary Physical Exam Summary: Appearance: Well appearing, no pain distress Skin: warm, dry, reflects adequate perfusion; abrasions without active bleeding on the L elbow Head/face: normal Eyes: EOMI, DILLON ENT: normal Neck: supple, non-tender Respiratory: CTA, breath sounds present Cardiovascular:murmurs present, pulses symmetrical Abdomen: non-tender, soft Bowel sounds : present Musculoskeletal: normal, strength/ROM intact Neuro: normal, sensory motor intact, A&Ox3 GCS: 15 Triage Information Reviewed: Yes Vital Signs On Initial Exam: Initial Vitals Temp Pulse Resp BP Pulse Ox 99.2 F 91 20 124/75 94 01/18/18 20:50 01/18/18 20:50 01/18/18 20:50 01/18/18 20:50 01/18/18 20:50 Vital Signs Reviewed: Yes Diagnostics - Vital Signs Vital Signs Temp Pulse Resp BP Pulse Ox 01/18/18 21:01 98 18 124/75 94 01/18/18 21:00 79 22 94 01/18/18 20:59 17 01/18/18 20:50 99.2 F 91 20 124/75 94 - Laboratory Result Diagrams: 01/19/18 04:46 01/18/18 21:41 Lab Statement: Any lab studies that have been ordered have been reviewed, and results considered in the medical decision making process. - CT Brain CT CT Interpretation Completed By: Radiologist - IMPRESSION: Posttraumatic subarachnoid hemorrhage, not present on the comparison study. The ED physician reviewed this radiology report. Cervical Spine CT CT Interpretation Completed By: Radiologist - IMPRESSION: 1. No acute fracture, subluxation, or aggressive osseous lesion. The ED physician reviewed this radiology report. - EKG 21:35 Cardiac Rate: NL - 99 bpm EKG Rhythm: Atrial Fibrillation EKG Interpretation: No acute changes Head Injury Course/Dx Course Of Treatment: An 87 year-old M is BIBA to the ED with a CC of a head injury status post a mechanical fall at 20:00 today. He lost balance and fell hitting his head and injuring his LUE. The pain rated 4/10 in intensity is descried as aching. He arrives from [facility]. The pt reports dizziness and weakness but denies abd pain, and neck pain. A physical exam revealed murmurs and abrasions without active bleeding on the L elbow. A cervical spine CT is unremarkable. A brain CT revealed posttraumatic subarachnoid hemorrhage, not present on the comparison study. An EKG revealed Afib. In the ED course, the pt was given Acetaminophen 650 mg PO, Levetiracet 1000mg in 100ml N.s 0.9% and prothrombin complex 2000 unit IV which improved the symptoms. I discussed the care of the pt with Dr. Gunderson neurosurgeon who recommended giving K Centra and admitting. He will see the pt tomorrow morning. I also discussed with Dr. Jaylan Velázquez-hospitalist who agreed to admit the pt. The patient will be admitted with a final Dx of head injury, and subarachnoid hemorrhage. The pt is agreeable with this plan. Allergies noted. - Diagnoses Differential Diagnosis/HQI/PQRI: Cerebral Contusion, Contusion, Intracranial Bleed Provider Diagnoses: Head injury, Subarachnoid hemorrhage - Physician Notifications Discussed Care Of Patient With: Gisela Seymour - Neurosurgeon Time Discussed With Above Provider: 22:43 Instructed by Provider To: Other - Dr. Neal recommended giving the pt K Centra and admitting. He will the pt in the morning as in-patient. 22:50- Dr. Alvarez agreed to admit the patient. - Critical Care Time Critical Care Time: 30-74 min Discharge - Sign-Out/Discharge Documenting (check all that apply): Patient Departure - Admit - Discharge Plan Condition: Improved Disposition: ADMITTED TO [facility] - Billing Disposition and Condition Condition: IMPROVED Disposition: Admitted to [facility] - Attestation Statements Document Initiated by Trini: Yes Documenting Scribe: Mariela Russell Provider For Whom Trini is Documenting (Include Credential): Dr. Shahid Menon MD Scribe Attestation: Mariela Travis scribed for Dr. Shahid Menon MD on 01/19/18 at 0518. Scribe Documentation Reviewed: Yes Provider Attestation: The documentation as recorded by the aydenibMariela chaney accurately reflects the service I personally performed and the decisions made by , Dr. Shahid Menon MD
[2018-01-18 21:51] LABS: ABS Basophils 0.1 10^3/ul (0-0.2); ABS Eosinophils 0 10^3/ul (0-0.6); ABS Lymphocytes 0.5 10^3/ul (1.0-4.8); ABS Monocytes 0.7 10^3/ul (0-0.8); ABS Neutrophils 11.7 10^3/ul (1.5-7.7); ABS Nucleated RBC 0 10^3/ul; Eosinophil % 0.4 % (0-6); Hematocrit 31 % (42-52); Hemoglobin 10.3 g/dl (14.0-18.0); Lymphocyte % 3.5 % (25-47); Mean Corpuscular HGB Conc 33 g/dl (31-36); Mean Corpuscular Hemoglobin 31 pg (27-31); Mean Corpuscular Volume 94 fL (80-94); Mean Platelet Volume 7.3 um3 (7.4-10.4); Nucleated Red Blood Cells % 0; Platelet Count 460 10^3/ul (150-450); Red Blood Count 3.29 10^6/ul (4.00-5.40); Red Cell Distribution Width 20 % (10.5-15)
[2018-01-18 22:00] LABS: INR 3.12 (0.77-1.02)
[2018-01-18 22:09] LABS: EGFR Non-African American 110.1 (>60)
--- NOTE | 2018-01-18 22:15 | RAD ---
EXAM: CT Head Without Intravenous Contrast CLINICAL HISTORY: 87 years old, male; Injury or trauma; Fall; Additional info: Head injury/ fall no loc/ weakness TECHNIQUE: Axial computed tomography images of the head/brain without intravenous contrast. All CT scans at this facility use at least one of these dose optimization techniques: automated exposure control; mA and/or kV adjustment per patient size (includes targeted exams where dose is matched to clinical indication); or iterative reconstruction. COMPARISON: BRAIN WO CT BRAIN WO 03/26/2017 2:30 AM FINDINGS: Brain: Small foci of increased attenuation in the left frontoparietal region which appear to be within the sulci. Chronic ischemic changes. Diffuse atrophy. No mass or edema. No subdural or epidural hematoma. Ventricles: Compensatory ventriculomegaly. Bones/joints: Normal. No acute fracture. Sinuses: Chronic sinusitis changes with air-fluid level in the right maxillary sinus. Mastoid air cells: Normal as visualized. No mastoid effusion. Soft tissues: Normal. Vasculature: Atherosclerotic calcification. IMPRESSION: Posttraumatic subarachnoid hemorrhage, not present on the comparison study.
--- NOTE | 2018-01-18 22:21 | RAD ---
EXAM: CT Cervical Spine Without Intravenous Contrast CLINICAL HISTORY: 87 years old, male; Injury or trauma; Fall; Initial encounter; Abrasion; Injury date: Today; Additional info: Head injury/ fall /weakness TECHNIQUE: Axial computed tomography images of the cervical spine without intravenous contrast. All CT scans at this facility use at least one of these dose optimization techniques: automated exposure control; mA and/or kV adjustment per patient size (includes targeted exams where dose is matched to clinical indication); or iterative reconstruction. Coronal and sagittal reformatted images were created and reviewed. COMPARISON: No relevant prior studies available. FINDINGS: Vertebrae: Diffuse degenerative changes of the cervical facet joints. No acute fracture. Very mild compression deformities of T1 and T3 anteriorly are likely chronic given the absence of paraspinous hemorrhage. Discs/spinal canal/neural foramina: Diffuse degenerative changes of the cervical spine with disc space narrowing and osteophyte formation at multiple levels. Soft tissues: Unremarkable. Vasculature: Atherosclerotic calcification. Lung apices: Unremarkable as visualized. IMPRESSION: 1. No acute fracture, subluxation, or aggressive osseous lesion.
[2018-01-18 23:08] LABS: Urine Appearance Clear; Urine Blood Negative (Negative); Urine Color Yellow; Urine Ketones Negative (Negative); Urine Protein Negative (Negative); Urine Specific Gravity 1.018 (1.010-1.030); Urine Urobilinogen Positive (Negative)
[2018-01-19] MEDS ORDERED: Acetaminophen TAB* 325 MG PO ONE (00:14)
[2018-01-19] MEDS ORDERED: Acetaminophen TAB* 325 MG ONE (00:24)
[2018-01-19] MEDS ORDERED: levETIRAcetam IV* 1,000 MG in NS 0.9% 100 ML* 100 ML IVPB SCH (00:30)
--- NOTE | 2018-01-19 01:06 | HP ---
H&P (Free Text) History and Physical: PCP: Awilda Sánchez MD Cardiology: Sarah Jesus MD Date/Time: 01/19/2018 0045 CC: fall, head injury HPI: Mr Vora is an 87YO male HX CAD, AFIB on warfarin, cardiomyopathy who reports 7-8 falls within the past 6 months. Tonight around 2030 he was walking from his living room at [facility] when he became unsteady and fell backwards striking the R occipital area on the floor. He denies prodromal chest pain, SOB , palpitations, focal W/N/T, or other issues. He did not lose consciousness, but was generally weak and unable to get up and so activated his life alert. CT brain WO identified a L fronto-parietal SAH. INR was 3 and so K-centra was administered. Humberto Mao MD neurosurger was consulted by ED and will evaluate in the AM. 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 Finasteride TAB* [Proscar TAB*] 5 mg PO QPM 11/29/12 Tamsulosin CAP* [Flomax CAP*] 0.4 mg PO QAM 11/29/12 Pilocarpine TAB (NF) 5 mg PO TID 05/20/15 Warfarin TAB(*) [Coumadin TAB(*)] 5 mg PO MOFR 11/21/16 Aspirin EC TAB* [Ecotrin EC Low Dose 81 MG*] 81 mg PO DAILY 03/26/17 Cholecalciferol TAB* [Vitamin D TAB*] 2,000 units PO DAILY 03/26/17 Docusate CAP* [Colace Cap*] 200 mg PO DAILY PRN 03/26/17 Oral Rinse (Biotene)(NF) [Biotene Dry Mouth Oral Rinse(NF)] 1 liq MT DAILY PRN 03/26/17 Warfarin TAB(*) [Coumadin TAB(*)] 2.5 mg PO SEE INSTRUCTIONS 03/26/17 Xylitol (Mouth-Throat) [Xylimelts] 500 mg MT DAILY PRN 03/26/17 Allergies No Known Allergies Allergy (Verified 02/06/17 19:05) PSurgHx OU cataract extractions tonsillectomy 4vCABG SocHx: former smoker, 1 glass wine daily, denies recreational drugs; full code status FamHx: reviewed, non-contributory to presentation ROS: as above, otherwise reviewed and all were negative vitals: Vital Signs Temp 37.3 C 01/18/18 20:50 Pulse 92 01/18/18 23:30 Resp 22 01/18/18 23:30 BP 122/62 01/18/18 23:30 Pulse Ox 95 01/18/18 23:30 Intake & Output 01/18/18 01/18/18 01/19/18 11:59 23:59 11:59 Weight 72.575 kg Constitutional: NAD, normally developed, well-nourished frail appearing venerable white male HEENM: small occipital hematoma; sclera/conjunctiva: anicteric/clear; hearing: clinically intact; oropharynx: clear, mucosa moist Neck: soft tissue: non-tender; thyroid: normal Pulmonary: clear to auscultation bilaterally, good aeration, no accessory muscle use CV: RR/RR, normal S1S2, no carotid bruit, no jugular venous distention, 1+ B DP/ PT, 1+ BLE edema Abdominal: soft, non-distended, non-tender, no rebound/guarding/rigidity, normoactive bowel sounds, no hepatosplenomegaly or masses, no costovertebral angle tenderness Musculoskeletal: general: grossly intact, no palpable tenderness Integumental: normal appearance and texture of exposed skin Psychiatric orientation: AA&O to PPS affect: calm mood: pleasant eye contact: good content: reliable responses: mildly slowed insight: fair to good Testing: Lab Results 01/18/18 01/18/18 01/18/18 Range/Units 21:40 21:40 21:41 WBC 13.0 H (3.5-10.8) 10^3/ul RBC 3.29 L (4.00-5.40) 10^6/ul Hgb 10.3 L (14.0-18.0) g/dl Hct 31 L (42-52) % MCV 94 (80-94) fL MCH 31 (27-31) pg MCHC 33 (31-36) g/dl RDW 20 H (10.5-15) % Plt Count 460 H (150-450) 10^3/ul MPV 7.3 L (7.4-10.4) um3 Neut % (Auto) 89.6 H (38-83) % Lymph % (Auto) 3.5 L (25-47) % Lincoln % (Auto) 5.4 (0-7) % Eos % (Auto) 0.4 (0-6) % Baso % (Auto) 1.1 (0-2) % Absolute Neuts (auto) 11.7 H (1.5-7.7) 10^3/ul Absolute Lymphs (auto) 0.5 L (1.0-4.8) 10^3/ul Absolute Monos (auto) 0.7 (0-0.8) 10^3/ul Absolute Eos (auto) 0 (0-0.6) 10^3/ul Absolute Basos (auto) 0.1 (0-0.2) 10^3/ul Absolute Nucleated RBC 0 10^3/ul Nucleated RBC % 0 INR (Anticoag Therapy) 3.12 H (0.77-1.02) APTT 42.4 H (26.0-36.3) seconds Sodium 138 (135-145) mmol/L Potassium 3.9 (3.5-5.0) mmol/L Chloride 107 (101-111) mmol/L Carbon Dioxide 27 (22-32) mmol/L Anion Gap 4 (2-11) mmol/L BUN 17 (6-24) mg/dL Creatinine 0.68 (0.67-1.17) mg/dL Est GFR ( Amer) 133.2 (>60) Est GFR (Non-Af Amer) 110.1 (>60) BUN/Creatinine Ratio 25.0 H (8-20) Glucose 164 H (70-100) mg/dL Calcium 8.8 (8.6-10.3) mg/dL Total Bilirubin 0.70 (0.2-1.0) mg/dL AST 18 (13-39) U/L ALT 15 (7-52) U/L Alkaline Phosphatase 133 H (34-104) U/L Troponin I 0.03 (<0.04) ng/mL Total Protein 6.1 L (6.4-8.9) g/dL Albumin 3.6 (3.2-5.2) g/dL Globulin 2.5 (2-4) g/dL Albumin/Globulin Ratio 1.4 (1-3) Urine Color Urine Appearance Urine pH (5-9) Ur Specific [place] (1.010-1.030) Urine Protein (Negative) Urine Ketones (Negative) Urine Blood (Negative) Urine Nitrate (Negative) Urine Bilirubin (Negative) Urine Urobilinogen (Negative) Ur Leukocyte Esterase (Negative) Urine Glucose (Negative) 01/18/18 Range/Units 22:55 WBC (3.5-10.8) 10^3/ul RBC (4.00-5.40) 10^6/ul Hgb (14.0-18.0) g/dl Hct (42-52) % MCV (80-94) fL MCH (27-31) pg MCHC (31-36) g/dl RDW (10.5-15) % Plt Count (150-450) 10^3/ul MPV (7.4-10.4) um3 Neut % (Auto) (38-83) % Lymph % (Auto) (25-47) % Lincoln % (Auto) (0-7) % Eos % (Auto) (0-6) % Baso % (Auto) (0-2) % Absolute Neuts (auto) (1.5-7.7) 10^3/ul Absolute Lymphs (auto) (1.0-4.8) 10^3/ul Absolute Monos (auto) (0-0.8) 10^3/ul Absolute Eos (auto) (0-0.6) 10^3/ul Absolute Basos (auto) (0-0.2) 10^3/ul Absolute Nucleated RBC 10^3/ul Nucleated RBC % INR (Anticoag Therapy) (0.77-1.02) APTT (26.0-36.3) seconds Sodium (135-145) mmol/L Potassium (3.5-5.0) mmol/L Chloride (101-111) mmol/L Carbon Dioxide (22-32) mmol/L Anion Gap (2-11) mmol/L BUN (6-24) mg/dL Creatinine (0.67-1.17) mg/dL Est GFR ( Amer) (>60) Est GFR (Non-Af Amer) (>60) BUN/Creatinine Ratio (8-20) Glucose (70-100) mg/dL Calcium (8.6-10.3) mg/dL Total Bilirubin (0.2-1.0) mg/dL AST (13-39) U/L ALT (7-52) U/L Alkaline Phosphatase (34-104) U/L Troponin I (<0.04) ng/mL Total Protein (6.4-8.9) g/dL Albumin (3.2-5.2) g/dL Globulin (2-4) g/dL Albumin/Globulin Ratio (1-3) Urine Color Yellow Urine Appearance Clear Urine pH 6.0 (5-9) Ur Specific [place] 1.018 (1.010-1.030) Urine Protein Negative (Negative) Urine Ketones Negative (Negative) Urine Blood Negative (Negative) Urine Nitrate Negative (Negative) Urine Bilirubin Negative (Negative) Urine Urobilinogen Positive A (Negative) Ur Leukocyte Esterase Negative (Negative) Urine Glucose Negative (Negative) ECG, personally reviewed: AFIB rate 86, PVCs; similar to 03/27/2017 CT brain WO, personally reviewed: IMPRESSION: Posttraumatic subarachnoid hemorrhage, not present on the comparison study. CT C-spine WO: IMPRESSION: No acute fracture, subluxation, or aggressive osseous lesion. Impression: 87M presenting with small traumatic L fronto-parietal SAH on warfarin with recent recurrent falls DIAGNOSIS & PLAN Primary small traumatic L fronto-parietal SAH on warfarin : K-centra given in ED : ICU monitoring : loaded with levetiracetam IV for seizure prophylaxis, continue 500mg PO BID : neurochecks : repeat CT brain WO in AM : repeat INR in AM : supplemental oxygen : Humberto Mao MD neurosurgery consulted by ED, will arrange evaluation in AM : given recurrent falls now w/ SAH 2nd fall would advise no further anticoagulation : supportive care warfarin toxicity : K-centra as above Secondary CAD/4vCABG : review meds once reconciled AFIB, chronic : hold anticoagulation : otherwise review meds once reconciled 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% : review meds once reconciled HLD : hold statins as above gout : review meds once reconciled BPH : review meds once reconciled Admission Rational: Inpatient as without the above interventions the risk of impending adverse outcome is unacceptably high; inappropriate for the outpatient setting DVTp: SCDs, no anticoagulation in setting of acute traumatic SAH Code Status: full, MOLST from [facility] reviewed, needs revisiting HCP: children collectively Critical Care time: 50minutes with >50% spent at the bedside obtaining a history , performing the examination, advising of diagnosis & treatment options along with risks/benefits/reasoning; remainder spent discussing with ER MD, reviewing labs and radiology exams, documentation
[2018-01-19] MEDS ORDERED: Ondansetron ODT TAB* 4 MG PO PRN (01:12)
[2018-01-19] MEDS ORDERED: Acetaminophen TAB* 325 MG PO PRN (01:12)
[2018-01-19] MEDS: NS 0.9% 1000 ML* 1,000 ML IV SCH ×2 (03:06→23:35)
[2018-01-19 05:07] LABS: ABS Basophils 0.1 10^3/ul (0-0.2); ABS Eosinophils 0.2 10^3/ul (0-0.6); ABS Lymphocytes 0.8 10^3/ul (1.0-4.8); ABS Monocytes 0.7 10^3/ul (0-0.8); ABS Neutrophils 10.1 10^3/ul (1.5-7.7); ABS Nucleated RBC 0 10^3/ul; Eosinophil % 1.9 % (0-6); Hematocrit 29 % (42-52); Hemoglobin 9.6 g/dl (14.0-18.0); Lymphocyte % 6.5 % (25-47); Mean Corpuscular HGB Conc 33 g/dl (31-36); Mean Corpuscular Hemoglobin 32 pg (27-31); Mean Corpuscular Volume 95 fL (80-94); Mean Platelet Volume 7.8 um3 (7.4-10.4); Nucleated Red Blood Cells % 0.1; Platelet Count 418 10^3/ul (150-450); Red Blood Count 3.05 10^6/ul (4.00-5.40); Red Cell Distribution Width 20 % (10.5-15); White Blood Count 11.9 10^3/ul (3.5-10.8)
[2018-01-19 05:14] LABS: INR 1.59 (0.77-1.02)
[2018-01-19] MEDS: Omeprazole CAP* 20 MG PO SCH (05:53)
[2018-01-19] MEDS: levETIRAcetam TAB* 500 MG PO SCH ×2 (08:43→20:29)
--- NOTE | 2018-01-19 09:25 | RAD ---
HISTORY: traumatic SAH recheck COMPARISONS: January 18, 2018 TECHNIQUE: Multiple contiguous axial CT scans were obtained of the head without intravenous contrast. FINDINGS: HEMORRHAGE/INFARCT: There is a small amount of high attenuation material within the sulci along the left frontal lobe, consistent with a small amount of subarachnoid hemorrhage, similar to the previous examination. Elsewhere, there is no hemorrhage or acute infarct. MASSES/SHIFT: There is no mass or shift. EXTRA-AXIAL SPACES: As noted above, there is a small amount of subarachnoid hemorrhage along the left frontal lobe. SULCI AND VENTRICLES: The sulci and ventricles are normal in size and position for the patient's stated age. CEREBRUM: There are no focal parenchymal abnormalities. BRAINSTEM: There are no focal parenchymal abnormalities. CEREBELLUM: There are no focal parenchymal abnormalities. VESSELS: There is calcification of the cavernous segments of the internal carotid arteries bilaterally and of the distal vertebral arteries bilaterally. PARANASAL SINUSES: There is an air-fluid level within the right maxillary sinus. There is mucosal thickening of the left maxillary sinus. ORBITS: The orbits are unremarkable. BONES AND SOFT TISSUE: No bone or soft tissue abnormalities are noted. OTHER: None IMPRESSION: STABLE MINIMAL LEFT FRONTAL SUBARACHNOID HEMORRHAGE. THE PATTERN IS NONANEURYSMAL AND IS CONSISTENT WITH POSTTRAUMATIC SUBARACHNOID HEMORRHAGE GIVEN THE HISTORY OF HEAD INJURY.
--- NOTE | 2018-01-19 13:59 | PN ---
Subjective Date of Service: 01/19/18 Interval History: HOSPITALIST PROGRESS NOTE Patient seen and examined at bedside. Care reviewed and d/w Monika Aguilar RN. He feels better today. Denies LARSON, N/V. States he has had multiple falls at [place] and "I realize I need more help". Family History: Unchanged from Admission Social History: Unchanged from Admission Past Medical History: Unchanged from Admission Objective Active Medications: Acetaminophen (Tylenol Tab*) 650 mg PO Q6H PRN PRN Reason: FEVER/PAIN Sodium Chloride (Ns 0.9% 1000 Ml*) 1,000 mls @ 50 mls/hr IV PER RATE [facility] Last Admin: 01/19/18 03:06 Dose: 50 mls/hr Levetiracetam (Keppra Tab*) 500 mg PO BID [facility] Last Admin: 01/19/18 08:43 Dose: 500 mg Omeprazole (Prilosec Cap*) 20 mg PO DAILY@0600 [facility] Last Admin: 01/19/18 05:53 Dose: 20 mg Ondansetron HCl (Zofran Odt Tab*) 4 mg PO Q6H PRN PRN Reason: n/v Vital Signs - 8 hr 01/19/18 01/19/18 01/19/18 06:00 07:00 08:00 Temperature 99.1 F Pulse Rate 79 73 74 Respiratory 15 19 19 Rate Blood Pressure 131/74 112/57 117/69 (mmHg) O2 Sat by Pulse 95 92 93 Oximetry 01/19/18 01/19/18 01/19/18 09:00 10:00 11:00 Temperature Pulse Rate 78 74 73 Respiratory 17 19 18 Rate Blood Pressure 121/72 (mmHg) O2 Sat by Pulse 95 97 96 Oximetry 01/19/18 01/19/18 11:46 12:00 Temperature 98.6 F Pulse Rate 71 Respiratory 26 Rate Blood Pressure (mmHg) O2 Sat by Pulse 97 Oximetry Oxygen Devices in Use Now: None Appearance: Pleasant elderly gentleman lying in bed in NAD. Eyes: No Scleral Icterus, - - Pupils are reactive to light, s/p cataract surgery Ears/Nose/Mouth/Throat: Mucous Membranes Moist Neck: Trachea Midline Respiratory: Symmetrical Chest Expansion and Respiratory Effort, Clear to Auscultation Cardiovascular: - - Normal S1 and S2, irregularly irregular Abdominal: NL Sounds; No Tenderness; No Distention Neurological: Alert and Oriented x 3, NL Muscle Strength and Tone Result Diagrams: 01/19/18 04:46 01/18/18 21:41 Assess/Plan/Problems-Billing Assessment: Mr Vora is an 87yo M with PMH of Afib (anticoagulated with Warfarin), CAD s/p CABG, CHF with EF 40-45%, HLD, cholelithiasis, nephrolithiasis, gout, BPH, who presented to ED after sustaining a fall, found to have a small SAH. - Patient Problems (1) SAH (subarachnoid hemorrhage) Comment: - Received Kcentra in ED. - Follow up CT is stable. - Neurosurgery input appreciated - will continue to monitor in ICU, repeat CT in AM. - Continue seizure prophylaxis with Keppra. - Continue to monitor with Neurochecks. (2) Fall Comment: - Patient states he has had multiple falls and will likely need more assistance when he returns to [place]. - If CT tomorrow is stable, will have PT evaluation - may need to go to [facility] on discharge. (3) Afib Comment: - Rate is controlled. - With multiple falls and now with SAH, anticoagulation is contraindicated. Patient understands this will increase his risk of CVA, but is in agreement. (4) CAD (coronary artery disease) Comment: - No signs of ischemia at this time. - No Aspirin for now. (5) DVT prophylaxis Comment: - Pharmacological prophylaxis contraindicated in the setting of SAH. - SCDs. Status and Disposition: Inpatient for close monitoring of SAH, with risk of neurological deterioration.
--- NOTE | 2018-01-19 15:16 | CONS ---
CONSULTATION NOTE: DATE OF CONSULT: 01/19/18 HISTORY OF PRESENT ILLNESS: The patient is a very pleasant 87-year-old gentleman with a history of c oronary artery disease, atrial fibrillation, on warfarin, cardiomyopathy, who has been having episode s of falls over the last 6 months. The patient was reported to have sustained a fall while he was li richg in [place] and he was brought to the emergency room. He was diagnosed with a left small frontal hemorrhagic contusion versus subarachnoid hemorrhage and he was given Kcentra in order to reverse hi s coagulopathy. INR on presentation was 3.12. I was requested to see the patient by emergency room physician. The patient also was loaded with Keppra and was admitted to the ICU by the internal medic ine service. The patient reports that he had a mechanical fall. He did not recall losing his consci ousness. He denies any weakness, numbness, or tingling of his extremities. He denies any neck or marie k pain. He reports that he has no episode of incontinence, but he does have episodes of falling in t he last 6 months. PAST MEDICAL HISTORY: Coronary artery disease, status post CABG; atrial fibrillation; cardiomyopathy ; hyperlipidemia; cholelithiasis; nephrolithiasis; gout; BPH. PAST SURGICAL HISTORY: Cataract surgery, tonsillectomy, CABG x4. MEDICATIONS: Home medications: 1. Finasteride. 2. Tamsulosin. 3. Pilocarpine. 4. Warfarin. 5. Aspirin. 6. Cholecalciferol. 7. Docusate oral rinse. 8. Xylitol. ALLERGIES: No known drug allergies. SOCIAL HISTORY: The patient is a . He lives alone in [place] and has 4 children. 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 Tobacco negative. Alcohol: One glass of wine daily. Recreational drug us e negative. PHYSICAL EXAM: The patient is not in acute distress. He is awake, alert, and oriented x3. His pupi ls are equal and reactive. Cranial nerves II through XII are grossly intact. Motor 4/5 to 5/5 in al l extremities. Sensory grossly intact to light touch. Deep tendon reflexes +1 bilaterally. No clon us. No Babinski. Katharine is negative. The patient has no tenderness to palpation of the thoracic o r lumbar spine. He has free range of motion of his cervical spine. DIAGNOSTIC STUDIES/LAB DATA: The patient had a CT scan of the brain revealing a small left frontal s ubarachnoid hemorrhage versus hemorrhagic contusion. CT scan of the cervical spine revealed degenerative disk disease without evidence of fracture. IMPRESSION: The patient is a very pleasant 87-year-old gentleman with multiple medical problems, on Coumadin for atrial fibrillation, who has sustained a fall, with CT scan findings of a small left fro ntal subarachnoid hemorrhage. PLAN/RECOMMENDATIONS: The patient at this point is doing quite well. He was admitted in the ICU ove rnight and he is neurologically stable. A repeat CT scan this morning did not reveal any evidence of change in his subarachnoid hemorrhage. His INR is 1.52. We recommend continuing Keppra for a total of [address] scan of the brain in the morning. Appreciate internal medicine care. Thank you for allowing us to participate in the care of this patient. Please do not hesitate to cont act our office in case you have any further questions or concerns regarding the care of this patient. [id number]/[facility] #: [id number]
--- NOTE | 2018-01-19 20:04 | RAD ---
EXAM: CT Head Without Intravenous Contrast CLINICAL HISTORY: 87 years old, male; Signs and symptoms; Altered mental status/memory loss; Additional info: AMS S/P traumatic sah TECHNIQUE: Axial computed tomography images of the head/brain without intravenous contrast. All CT scans at this facility use at least one of these dose optimization techniques: automated exposure control; mA and/or kV adjustment per patient size (includes targeted exams where dose is matched to clinical indication); or iterative reconstruction. COMPARISON: BRAIN WO CT BRAIN WO 01/19/2018 9:02 AM FINDINGS: Brain: There is stable age-related diffuse cerebral volume loss and chronic microvascular ischemic disease. As previously seen, there is a small quantity of hyperdensity in a left frontal lobe sulcus suspicious for a small quantity of acute subarachnoid hemorrhage which is unchanged. Ventricles: Unremarkable. No ventriculomegaly. Bones/joints: Unremarkable. No acute fracture. Soft tissues: Unremarkable. Sinuses: Stable mild mucosal thickening in the maxillary sinuses and debris or fluid in the sphenoid sinus. Mastoid air cells: Unremarkable as visualized. No mastoid effusion. IMPRESSION: 1. There is stable age-related diffuse cerebral volume loss and chronic microvascular ischemic disease. 2. As previously seen, there is a small quantity of hyperdensity in a left frontal lobe sulcus suspicious for a small quantity of acute subarachnoid hemorrhage which is unchanged.
[2018-01-19] MEDS: Finasteride TAB* 5 MG PO SCH (20:29)
[2018-01-20] MEDS: Omeprazole CAP* 20 MG PO SCH (06:22)
[2018-01-20 06:36] LABS: ABS Basophils 0.1 10^3/ul (0-0.2); ABS Eosinophils 0.2 10^3/ul (0-0.6); ABS Lymphocytes 0.9 10^3/ul (1.0-4.8); ABS Monocytes 0.8 10^3/ul (0-0.8); ABS Neutrophils 13.5 10^3/ul (1.5-7.7); ABS Nucleated RBC 0 10^3/ul; Eosinophil % 1.4 % (0-6); Hematocrit 32 % (42-52); Hemoglobin 10.4 g/dl (14.0-18.0); Lymphocyte % 6.1 % (25-47); Mean Corpuscular HGB Conc 33 g/dl (31-36); Mean Corpuscular Hemoglobin 31 pg (27-31); Mean Corpuscular Volume 95 fL (80-94); Mean Platelet Volume 7.4 um3 (7.4-10.4); Nucleated Red Blood Cells % 0.1; Platelet Count 432 10^3/ul (150-450); Red Blood Count 3.33 10^6/ul (4.00-5.40); Red Cell Distribution Width 21 % (10.5-15); White Blood Count 15.6 10^3/ul (3.5-10.8)
[2018-01-20 06:56] LABS: EGFR Non-African American 153.4 (>60)
--- NOTE | 2018-01-20 09:07 | RAD ---
HISTORY: SAH follow up COMPARISONS: January 19, 2018 TECHNIQUE: Multiple contiguous axial CT scans were obtained of the head without intravenous contrast. FINDINGS: HEMORRHAGE/INFARCT: Again noted is a small amount of left frontal subarachnoid hemorrhage, slightly decreased from the previous examination. Elsewhere, there is no hemorrhage or acute infarct. MASSES/SHIFT: There is no mass or shift. EXTRA-AXIAL SPACES: As noted above, there is minimal left frontal subarachnoid hemorrhage. SULCI AND VENTRICLES: There is diffuse and proportional enlargement of the sulci and ventricles. CEREBRUM: There is hypoattenuation of the periventricular and subcortical white matter. BRAINSTEM: There are no focal parenchymal abnormalities. CEREBELLUM: There are no focal parenchymal abnormalities. VESSELS: There is calcification of the cavernous segments of the internal carotid arteries bilaterally and of the distal vertebral arteries bilaterally. PARANASAL SINUSES: The paranasal sinuses are clear. ORBITS: The orbits are unremarkable. BONES AND SOFT TISSUE: No bone or soft tissue abnormalities are noted. OTHER: None IMPRESSION: PERSISTENT LEFT FRONTAL SUBARACHNOID HEMORRHAGE, SLIGHTLY IMPROVED FROM THE PREVIOUS EXAMINATION.
[2018-01-20] MEDS: Cholecalciferol TAB* 1000 UNITS PO SCH (09:25)
[2018-01-20] MEDS: levETIRAcetam TAB* 500 MG PO SCH ×2 (09:25→21:41)
--- NOTE | 2018-01-20 11:29 | RAD ---
INDICATION: Dysphagia, leukocytosis. COMPARISON: Comparison is made with prior study from December 25, 2017. TECHNIQUE: AP and lateral views of the chest were obtained. FINDINGS: The patient appears to be status post coronary artery bypass surgery. The heart is moderately enlarged and unchanged. There is diffuse prominence of the interstitial markings which have increased from the prior exam. There are new small bilateral pleural effusions. There is also a new more focal infiltrate present at the left lung base. IMPRESSION: LEFT BASILAR INFILTRATE AND FINDINGS SUGGESTIVE OF SUPERIMPOSED CONGESTIVE HEART FAILURE.
[2018-01-20] MEDS: Carboxymethylcellulose/Glyceri 10 ML OPHTH.GEL lubricant eye gel BOTH EYES SCH ×2 (12:31→21:46)
--- NOTE | 2018-01-20 13:06 | CONSULT ---
Consult Consult: Mr. Vora has symptoms and neurological findings consistent with Parkinson's disease without dementia or psychosis. This is the likely cause of his postural instability and probably orthostasis. I have ordered orthostatic vitals and started him on Sinemet 25-100 to take half tablet PO three times daily. I will continue to follow. Consultation note was dictated.
[2018-01-20] MEDS: Carbidopa/Levodop 25/100 MG TAB(*) PO SCH ×2 (15:33→21:40)
--- NOTE | 2018-01-20 16:15 | CONS ---
EEG CONSULTATION REPORT: DATE OF CONSULT: 01/20/18 CONSULTING PROVIDER: Dr. Sánchez. REASON FOR CONSULT: Frequent falls. CHIEF COMPLAINT: Frequent falls. HISTORY OF PRESENT ILLNESS: Mr. Vora is a pleasant 87-year-old, right-handed, ex- [employer] with history of atrial fibrillation, on Coumadin; benign prostatic hypertrophy, on finasteride and tamsulosin, who has had frequent falls over the last 6 months. The patient stated that last Saturday he felt unsure of himself and had concerns about his gait. Every time he would stand up from a seated position, he felt shaky and his right arm had continuous tremors. He had increase in instability on Saturday. Apparently, he was moving from one room to another where he felt unstable and started to fall forward, but suddenly pushed back and instead fell backwards. He did hit the right side of his head. He had no loss of consciousness. He denied any seizure -like movements. He denied any impairment in his bowel or bladder functions and he denied any tongue biting. He presented to [facility], where he was found to have to a small left frontoparietal subarachnoid hemorrhage. Kcentra was administered and the patient's Coumadin and aspirin were held. He was evaluated by Neurosurgery, who recommended levetiracetam for a total of 7 days. The patient again did not have any seizure- like activity. With further history, the patient stated that he has noticed inability to write Benson cards for the last 2 years. This is mostly due to tremors in the right arm. This was followed by inability to button his shirts for the last 6 months and tremors in the left leg for the last 4 months. He uses a seated walker. He does continue to drive and does his own grocery shopping. He has noticed increasing constipation and difficulty sleeping at night because he worries constantly. He denied any visual or auditory hallucinations. He denied any swallowing impairment or focal weakness of the extremities. He does have intermittent lightheadedness for the last 6 months and describes it as dizziness upon standing or kneeling forward. He denied any vertigo, tinnitus, or new-onset diplopia. He does notice double vision over the last 1 month when reading a book at nighttime. The patient describes his first fall was related to reaching for an object on the floor, one time he was reaching for his phone and another time, it was an object that he dropped. Following that, he would fall forward. He has significantly slowed down over the last year and is definitely using his seated walker more often. PAST MEDICAL HISTORY: Coronary artery disease, status post 4-vessel CABG; chronic atrial fibrillation, on Coumadin; cardiomyopathy; dyslipidemia; cholelithiasis; nephrolithiasis; gout; benign prostatic hypertrophy. PAST SURGICAL HISTORY: Cataracts, tonsillectomy, CABG. MEDICATIONS: 1. Tamsulosin 0.4 mg p.o. daily. 2. Finasteride 5 mg p.o. at nighttime. 3. Pilocarpine 5 mg p.o. t.i.d. 4. Warfarin 5 mg p.o. daily. 5. Xylitol 500 mg daily. 6. Vitamin D 2000 units p.o. daily. 7. Aspirin 81 mg p.o. daily. ALLERGIES: No known drug allergies. FAMILY HISTORY: No family history of stroke or seizures. There is no family history of neurodegenerative disorder. SOCIAL HISTORY: A former smoker. He quit in the 1960s. He drinks 1 glass of wine daily. He denies any recreational drug use. REVIEW OF SYSTEMS: A 14-point review of systems was obtained and otherwise negative except for what was mentioned in the HPI. PHYSICAL EXAM: Vitals: Temperature of 98.6, heart rate of 75, respiratory rate of 23, oxygen saturation of 98% on room air, blood pressure of 130/75. Frail- appearing elderly man, in no acute distress. He is cooperative. Normocephalic, atraumatic without any obvious abnormalities. Eyes: Conjunctivae/corneas are clear. Neck is supple and symmetrical with no carotid bruit. Lungs are clear to auscultation bilaterally. Cardiovascular: Irregular rhythm with normal rate. Radial pulses are palpable. Extremities: Normal range of motion with no cyanosis. Skin: No skin lesions or laceration. Psych: Affect is broad and normal mood. It is easy to establish rapport. Neurological Examination: Mental Status: Awake, alert, and oriented to person , place, time, and general circumstances. He has hypophonia of speech, but language including expression, naming, and repetition, and comprehension were assessed and found to be normal. Cranial Nerves: Normal confrontation testing. Pupils are mid range and reactive bilaterally. Sensation is intact on the forehead, cheeks, and jaw region bilaterally. No facial droop. He is able to hear throughout the history process. Symmetrical palatal elevation. Normal strength against resistance. Tongue is symmetrical and midline with no fasciculation. Motor Examination: Increasing cogwheel rigidity in the right upper and left lower extremity. He has no pronator drift. He has generalized reduced effort to the proximal extremities 4/5, but distal extremities are 5/5. He has high-amplitude, low frequency 4-6 Hz tremor in the right hand and the left foot. Reflexes: Right/left, brachioradialis 1/1, biceps 1/1, triceps 1/1, patella 1/1, ankle 0/ankle, plantar flexor/flexor. Sensation is intact to light touch and pinprick throughout. Normal vibration at the toes. Coordination: Normal finger- to-nose. Slow rapid alternating movement. Gait and Station: Did not assess; the patient has urinary catheters and is on IV fluid in the ICU. Extrapyramidal: The patient has masked facies. Archimedean spiral drawing, very small spiral drawing with micrographia. The patient also has evidence of bradykinesia. DIAGNOSTIC STUDIES/LAB DATA: WBC 15.6, hemoglobin 10, hematocrit 32, platelets 432. Sodium 141, potassium 3.8, creatinine 0.51, calcium 8.2. C-reactive protein 80.94. Urinalysis is negative for pyuria. CT head without contrast completed on 01/18/18, 01/19/18, and 01/20/18, show a small nonexpanding subarachnoid hemorrhage, slightly improved in the left frontal region. ASSESSMENT AND RECOMMENDATION: Mr. Raymundo Vora is a pleasant, highly intelligent, and intellectual 87-year-old man, who is a , who presented after a fall, where he developed a small asymptomatic subarachnoid hemorrhage. Neurology was consulted to evaluate for possible underlying neurodegenerative disorder. From the history, the patient has noticed significant change in his handwriting over the past 2 years, as well as he has increase in tremors and gait instability for at least past6 months. On examination, the patient has resting tremors involving the right hand and left foot, hypophonia, micrographia , masked facies, and cogwheel rigidity in the right upper extremity. We were unable to assess his gait, but he does report history of gait imbalance, shuffling gait, and some posture instability. Given the clinical history and physical examination finding, the patient has classic Parkinson's disease without any evidence of hallucination and dementia at this time. This is a new diagnosis. The patient was slightly concerned, but at the same time reassured that the symptoms are explained by a condition that we can hopefully manage. Our main focus at this point should be aggressive physical and occupational therapy. The longer the patient is in bed, the increased risk for developing a "off" phenomenon, or increase in stiffness. I will start him on a very low dose of Sinemet 25/100 half a tablet 3 times a day. Also, please start him on a bowel regimen as the patient has a history of chronic constipation. In regards to his frequent falls, I suspect the posture instability as well as possible orthostatic hypotension is a large component to the patient's falls. We discussed fall precautions. He most likely will need some type of short-term rehabilitation which can help him in the longer run. Defer leukocytosis to the primary team. Please make sure the patient does not have aspiration pneumonia. Defer the recommendation for levetiracetam to the neurosurgery team. I agree with prophylaxis for a short period of time. Subarachnoid hemorrhage - the patient is being followed up by Neurosurgery. Benign prostatic hypertrophy - medication such as finasteride and tamsulosin do not help with orthostatic hypotension and may need to be readjusted. In the meantime, the patient would like to proceed with these medications to help with the urination especially at nighttime. TIME SPENT: I spent a total of 75 minutes of which greater than 50% was spent directly reviewing the medical chart, obtaining history, examining the patient, education, counseling, and discussing the treatment plan and prognosis. We will arrange a followup with Dr. Cale Petersen in 4 weeks. [id number]/[facility] #: [id number] KIM
--- NOTE | 2018-01-20 17:26 | ECHO ---
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 Technical Comments: The study quality is good. Completed at 1600. Left Ventricle: The left ventricular chamber size is normal. Septal wall hypertrophy is observed. There is a focal wall motion abnormality present. There is moderately decreased left ventricular systolic function. The estimated ejection fraction is 35-40%. There is a left ventricular septal wall motion abnormality observed, possibly due to the presence of a left bundle branch block. The basal inferolateral wall segment is akinetic (score 3). Overall wallmotion score index is 3.00 Left Atrium: The left atrium is moderately dilated. Right Ventricle: The right ventricular cavity size is normal. The right ventricular global systolic function is normal. Right Atrium: The right atrial cavity size is severely dilated. Aortic Valve: The aortic valve is trileaflet. The aortic valve leaflets are moderately thickened. Systolic excursion of the aortic valve cusps is reduced. There is a trace of aortic regurgitation. There is mild to moderate aortic stenosis. The mean gradient of the aortic valve is 13 mmHg. The aortic valve area, by peak velocities, is calculated at 1.2 cm2. Mitral Valve: The mitral valve leaflets are mildly thickened. There is severe mitral regurgitation. The mitral regurgitant jet is laterally directed. There is no evidence of mitral stenosis. Tricuspid Valve: The tricuspid valve leaflets are normal. There is severe tricuspid regurgitation. The tricuspid regurgitant jet is extending to dome (back wall of RA). There is evidence of moderate pulmonary hypertension. There is no tricuspid stenosis. Pulmonic Valve: The pulmonic valve appears normal. There is no evidence of pulmonic regurgitation. There is no pulmonic stenosis. Pericardium: The pericardium appears normal. Aorta: There is mild dilatation of the ascending aorta. There is no dilatation of the aortic arch. There is no dilation of the aortic root. Pulmonary Artery: The main pulmonary artery appears normal. Venous: The inferior vena cava is dilated. There is less than 50% respiratory change in the inferior vena cava dimension. Conclusions There is moderately decreased left ventricular systolic function. The estimated ejection fraction is 35-40%. There is a left ventricular septal wall motion abnormality observed, possibly due to the presence of a left bundle branch block. The basal inferolateral wall segment is akinetic (score 3). The right ventricular global systolic function is normal. The aortic valve leaflets are moderately thickened. There is a trace of aortic regurgitation. There is mild to moderate aortic stenosis. The mean gradient of the aortic valve is 13 mmHg. There is severe mitral regurgitation. The mitral regurgitant jet is laterally directed. There is severe tricuspid regurgitation. There is evidence of moderate pulmonary hypertension. The pericardium appears normal. Compared to study of 06/09/14, the LV function is the slightly worse. The degree of MR and Pulm HTN are much worse Measurements Name Value Normal Range RVIDd (AP) 2D 3.3 cm (0.9 - 2.6) RVDdMajor (2D) 4.2 cm (2.2 - 4.4) RAd ISD 4CH 7.3 cm (3.4 - 4.9) RA (A4C)W 5.4 cm (2.9 - 4.6) IVSd (2D) 1.3 cm (0.6 - 1) LVPWd (2D) 0.8 cm (0.6 - 1) LVIDd (2D) 5.3 cm (3.6 - 5.4) LVIDs (2D) 3.7 cm - LV FS (2D) 30 % (25 - 45) Aortic Annulus 2.1 cm (1.4 - 2.6) Ao root diameter (2D) 3.4 cm (2.1 - 3.5) Ascending Ao 3.7 cm (2.1 - 3.4) Aortic arch 2.3 cm (1.8 - 3.4) Descending Ao 1 cm - LA dimension (AP) 2D 4.8 cm (2.3 - 3.8) LAd ISD 4CH 7.5 cm (2.9 - 5.3) LA ISD 4CH W 4.8 cm (2.5 - 4.5) Name Value Normal Range LA ESV SP 4CH (A/L) 57 ml - LA ESV SP 2CH (A/L) 71 ml - LA ESV BP (A/L) index 65 ml/m2 - Name Value Normal Range MV E-wave Vmax 1 m/sec - MV deceleration time 230 msec - LV septal e' Vmax 0.09 m/sec - LV lateral e' Vmax 0.07 m/sec - LV E:e' septal ratio 11.11 ratio - LV E:e' lateral ratio 14.28 ratio - Name Value Normal Range AV Vmax 2.6 m/sec - AV VTI 50.3 cm - AV peak gradient 26 mmHg - AV mean gradient 13 mmHg - LVOT diameter 2.4 cm - LVOT Vmax 0.7 m/sec - LVOT VTI 14.1 cm - LVOT peak gradient 1 mmHg - KATHRYN (continuity Vmax) 1.2 cm2 - KATHRYN (continuity VTI) 1.3 cm2 - Name Value Normal Range MR Vmax 3.7 m/sec - MR VTI 154 cm - MR ERO 4.02 cm2 - MR PISA radius 0.7 cm - Name Value Normal Range TR Vmax 3.1 m/sec - TR peak gradient 38 mmHg - RAP 15 mmHg - RVSP 53 mmHg - IVC diameter 2.6 cm - Name Value Normal Range PV Vmax 0.8 m/sec - PV peak gradient 2 mmHg - Wallmotion BAS Not Seen BA Not Seen BAL Not Seen RUTH Akinetic BI Not Seen BIS Not Seen MAS Not Seen MA Not Seen MAL Not Seen MIL Not Seen CT Not Seen MIS Not Seen Not Seen AA Not Seen AL Not Seen AI Not Seen APEX Not Seen
--- NOTE | 2018-01-20 18:49 | PN ---
Progress Note - Progress Note Date of Service: 01/20/18 SOAP: Subjective: []No events On. On regular floor. Started on PD med by Neurology Objective: []VSS AAOx3 DILLON, CN II-XII grossly intact Motor 4-5/5 Sensory grossly intact to light touch Assessment: [] 87 yom fall, small left frontal SAH Plan: []Monotor VS, Neurochecks CT tis am stable No need for neurosurgical intervention. PD management per neurology Will be available if needed. Yaakov Seymour MD
[2018-01-20] MEDS ORDERED: Piperacillin/Tazobac ADVAN(*) 3.375 GM in NS 0.9% 100 ML* 100 ML IVPB ONE (20:46)
[2018-01-20] MEDS ORDERED: Zosyn per Pharmacy* NOTE FOLLOW UP SCH (21:00)
[2018-01-20] MEDS: Finasteride TAB* 5 MG PO SCH (21:40)
[2018-01-20] MEDS: Tamsulosin CAP* 0.4 MG PO SCH (21:41)
[2018-01-21] MEDS: ZOSYN 3.375 GM Q8H per EXTENDED INFUSION IVPB SCH ×6 (01:39→18:10)
[2018-01-21] MEDS: Omeprazole CAP* 20 MG PO SCH (05:59)
[2018-01-21 06:00] LABS: ABS Basophils 0.1 10^3/ul (0-0.2); ABS Eosinophils 0.6 10^3/ul (0-0.6); ABS Lymphocytes 0.8 10^3/ul (1.0-4.8); ABS Monocytes 0.8 10^3/ul (0-0.8); ABS Nucleated RBC 0 10^3/ul; Eosinophil % 4.8 % (0-6); Hematocrit 30 % (42-52); Hemoglobin 10.1 g/dl (14.0-18.0); Lymphocyte % 6.5 % (25-47); Mean Corpuscular HGB Conc 34 g/dl (31-36); Mean Corpuscular Hemoglobin 32 pg (27-31); Mean Corpuscular Volume 94 fL (80-94); Mean Platelet Volume 7.5 um3 (7.4-10.4); Nucleated Red Blood Cells % 0.1; Platelet Count 448 10^3/ul (150-450); Red Blood Count 3.16 10^6/ul (4.00-5.40); Red Cell Distribution Width 20 % (10.5-15); White Blood Count 12.3 10^3/ul (3.5-10.8)
[2018-01-21] MEDS: Carbidopa/Levodop 25/100 MG TAB(*) PO SCH ×3 (09:44→21:18)
[2018-01-21] MEDS: Cholecalciferol TAB* 1000 UNITS PO SCH (09:50)
[2018-01-21] MEDS: Carboxymethylcellulose/Glyceri 10 ML OPHTH.GEL lubricant eye gel BOTH EYES SCH ×2 (09:50→21:17)
[2018-01-21] MEDS: levETIRAcetam TAB* 500 MG PO SCH ×2 (09:53→21:24)
--- NOTE | 2018-01-21 11:02 | PN ---
Subjective Date of Service: 01/21/18 Length of Stay: 2 Days Neurology is following Mr. Vora for the evaluation and management of newly diagnosed Parkinson's disease. Interval History: He has no tremors this morning. He feels good walking around with PT this morning. I watched him ambulate today. He denied any headache, visual disturbance, or motor weakness. He does report a constant sensation of stiffness in the legs lasting throughout the day. Stretching the legs seem to help the stiffness. Review of Systems: Denied CP, SOB, or palpitations. Family History: Unchanged from Admission Social History: Unchanged from Admission Past Medical History: Unchanged from Admission Objective Active Medications: Acetaminophen (Tylenol Tab*) 650 mg PO Q6H PRN PRN Reason: FEVER/PAIN Last Admin: 01/19/18 21:01 Dose: 650 mg Carbidopa/Levodopa (Sinemet 25/100 Tab(*)) 0.5 tab PO TID [facility] Last Admin: 01/21/18 09:44 Dose: 0.5 tab Carboxymethylcellulose/Glycerin (Refresh Optive Gel Eye Gel) 1 applic BOTH EYES BID [facility] Last Admin: 01/21/18 09:50 Dose: 1 applic Cholecalciferol (Vitamin D Tab*) 2,000 units PO DAILY [facility] Last Admin: 01/21/18 09:50 Dose: 2,000 units Finasteride (Proscar Tab*) 5 mg PO BEDTIME [facility] Last Admin: 01/20/18 21:40 Dose: 5 mg Sodium Chloride (Ns 0.9% 1000 Ml*) 1,000 mls @ 50 mls/hr IV PER RATE [facility] Last Admin: 01/19/18 23:35 Dose: 50 mls/hr Piperacillin Sod/Tazobactam (Sod 3.375 gm/ Sodium Chloride) 100 mls @ 25 mls/ hr IVPB Q8H [facility] Last Admin: 01/21/18 09:44 Dose: 25 mls/hr Levetiracetam (Keppra Tab*) 500 mg PO BID [facility] Last Admin: 01/21/18 09:53 Dose: 500 mg Omeprazole (Prilosec Cap*) 20 mg PO DAILY@0600 [facility] Last Admin: 01/21/18 05:59 Dose: 20 mg Ondansetron HCl (Zofran Odt Tab*) 4 mg PO Q6H PRN PRN Reason: n/v Pharmacy Consult (Zosyn Per Pharmacy*) 1 note FOLLOW UP .ZOSYN PER PHARMACY EDIN Tamsulosin HCl (Flomax Cap*) 0.4 mg PO MoWeFr@2100 EDIN Last Admin: 01/20/18 21:41 Dose: 0.4 mg Vital Signs 01/20/18 01/20/18 01/20/18 11:00 11:17 12:00 Temperature 97.7 F 98.6 F Pulse Rate 68 74 79 Respiratory 19 20 23 Rate Blood Pressure 109/54 109/63 130/75 (mmHg) O2 Sat by Pulse 95 91 98 Oximetry 01/20/18 01/20/18 01/20/18 13:08 16:00 19:25 Temperature 97.7 F 98.2 F 99.0 F Pulse Rate 59 75 86 Respiratory 16 24 22 Rate Blood Pressure 161/70 104/39 118/43 (mmHg) O2 Sat by Pulse 99 97 96 Oximetry 01/20/18 01/20/18 01/20/18 20:00 23:25 23:54 Temperature 98.4 F Pulse Rate 78 Respiratory 20 24 Rate Blood Pressure 96/50 106/48 (mmHg) O2 Sat by Pulse 94 Oximetry 01/21/18 01/21/18 01/21/18 00:29 03:54 07:54 Temperature 98.7 F 98.0 F Pulse Rate 58 80 Respiratory 18 Rate Blood Pressure 111/52 (mmHg) O2 Sat by Pulse 94 95 98 Oximetry 01/21/18 08:00 Temperature Pulse Rate Respiratory Rate Blood Pressure 112/64 (mmHg) O2 Sat by Pulse Oximetry Intake and Output Last 24 Hours 01/19/18 01/20/18 01/21/18 01/22/18 06:59 06:59 06:59 06:59 Intake Total 346 1596 1827 Output Total 681 568 7891 Balance -24 1096 567 Weight 158 lb 4.67 oz Intake: IV Fluids 246 1186 677 ABX - ZOSYN 677 NS (0.9%) 146 1186 IVPB 100 200 ABX - ZOSYN 200 Oral 410 950 Output: Urine 370 400 0 Luna 1260 Residual 100 18 Fr Temperature Probe 100 Other: Estimated Void Medium # Bowel Movements 1 0 Estimated Stool Amount Large # Voids 1 Oxygen Devices in Use Now: None Neurology Exam: General: Ill appearing elderly man who is frail in no acute distress. HEENT: Normocephelic/atraumstic, sclera anicteric, mucous membranes moist Neck: Supple Chest: Clear to auscultation bilaterally Cardiovascular: Regular rate and rhythm without murmurs, rubs, gallops Extremities: No clubbing, cyanosis, or edema Neurological Findings: Awake, Alert, Oriented to person, place, time, and general circumstance. Cranial Nerve: Masked facies. PERRL, EOM-I, no facial asymmetry. Motor: s/s throughout, proximal and distal extremities x4 tone/bulk normal Sensation: intact to LT/PP bilaterally upper and lower extremities Deep Tendon Reflex: trace throughout Bradykinesia but no dysmetria. Gait: fenestrated, shuffling gait with stooped posture and en-bloc turning ( took 10-15 steps to make a turn). Result Diagrams: 01/21/18 05:44 01/20/18 06:30 Microbiology and Other Data: Microbiology 01/19/18 02:10 Nasal Screen MRSA (PCR) - Final Nasal Mrsa Not Detected Assessment/Plan 1. Parkinson's disease- He is tolerating Sinemet. Increase the dose tomorrow to 1 tablet PO three times daily. He will need aggressive PT treatment and will benefit from acute rehabilitation. 2. Asymptomatic SAH-denied any headaches or focal weakness. Defer restarting anticoagulation and anti-platelet therapy to the NSG specialist. He has not had any seizures. Discontinue Keppra on 01/25/2018. I will continue to follow Total time: 25 minutes examining the patient and discussing the treatment plan as mentioned above.
[2018-01-21] MEDS: Finasteride TAB* 5 MG PO SCH (21:24)
[2018-01-22] MEDS: ZOSYN 3.375 GM Q8H per EXTENDED INFUSION IVPB SCH ×6 (01:21→18:27)
[2018-01-22] MEDS: Omeprazole CAP* 20 MG PO SCH (05:25)
[2018-01-22 06:55] LABS: Hematocrit 30 % (42-52); Hemoglobin 10.2 g/dl (14.0-18.0); Mean Corpuscular HGB Conc 34 g/dl (31-36); Mean Corpuscular Hemoglobin 32 pg (27-31); Mean Corpuscular Volume 93 fL (80-94); Mean Platelet Volume 7.4 um3 (7.4-10.4); Platelet Count 519 10^3/ul (150-450); Red Blood Count 3.23 10^6/ul (4.00-5.40); Red Cell Distribution Width 20 % (10.5-15); White Blood Count 10.4 10^3/ul (3.5-10.8)
[2018-01-22 07:37] LABS: ABS Basophils 0.2 10^3/ul (0-0.2); ABS Eosinophils 0.8 10^3/ul (0-0.6); ABS Lymphocytes 0.9 10^3/ul (1.0-4.8); ABS Monocytes 0.7 10^3/ul (0-0.8); ABS Neutrophils 7.9 10^3/ul (1.5-7.7); ABS Nucleated RBC 0 10^3/ul; Eosinophil % 7.3 % (0-6); Lymphocyte % 8.7 % (25-47); Nucleated Red Blood Cells % 0.1
[2018-01-22] MEDS: Carbidopa/Levodop 25/100 MG TAB(*) PO SCH ×3 (09:44→20:59)
[2018-01-22] MEDS: Cholecalciferol TAB* 1000 UNITS PO SCH (09:46)
[2018-01-22] MEDS: Carboxymethylcellulose/Glyceri 10 ML OPHTH.GEL lubricant eye gel BOTH EYES SCH ×2 (09:46→21:00)
[2018-01-22] MEDS: levETIRAcetam TAB* 500 MG PO SCH ×2 (09:49→20:59)
--- NOTE | 2018-01-22 14:17 | PN ---
Subjective Date of Service: 01/22/18 Length of Stay: 3 Days Neurology is following Mr. Vora for the evaluation and management of Parkinson' s Disease. Interval History: Mr. Vora feels that his tremors have improved today. He is able to feed himself better than he was in the past. He still complains of double vision that seems to be involving the right eye. The double vision is monocular. He denied any headache. He denied any swallowing difficulty although he seems to be having trouble with thin liquids. He has no choking events. The sputum culture is growing yeast. I have discussed this with the bedside nurse who agreed to update the patient's primary provider (Dr. Greer). Lacy, PT, was concerned that the patient is bumping into objects on the left when ambulating. Review of Systems: Denied CP, SOB, or palpitations. Family History: Unchanged from Admission Social History: Unchanged from Admission Past Medical History: Unchanged from Admission Objective Active Medications: Acetaminophen (Tylenol Tab*) 650 mg PO Q6H PRN PRN Reason: FEVER/PAIN Last Admin: 01/19/18 21:01 Dose: 650 mg Carbidopa/Levodopa (Sinemet 25/100 Tab(*)) 1 tab PO TID [facility] Last Admin: 01/22/18 09:44 Dose: 1 tab Carboxymethylcellulose/Glycerin (Refresh Optive Gel Eye Gel) 1 applic BOTH EYES BID [facility] Last Admin: 01/22/18 09:46 Dose: 1 applic Cholecalciferol (Vitamin D Tab*) 2,000 units PO DAILY EDIN Last Admin: 01/22/18 09:46 Dose: 2,000 units Finasteride (Proscar Tab*) 5 mg PO BEDTIME EDIN Last Admin: 01/21/18 21:24 Dose: 5 mg Sodium Chloride (Ns 0.9% 1000 Ml*) 1,000 mls @ 50 mls/hr IV PER RATE [facility] Last Admin: 01/19/18 23:35 Dose: 50 mls/hr Piperacillin Sod/Tazobactam (Sod 3.375 gm/ Sodium Chloride) 100 mls @ 25 mls/ hr IVPB Q8H EDIN Last Admin: 01/22/18 09:51 Dose: 25 mls/hr Levetiracetam (Keppra Tab*) 500 mg PO BID EDIN Last Admin: 01/22/18 09:49 Dose: 500 mg Omeprazole (Prilosec Cap*) 20 mg PO DAILY@0600 [facility] Last Admin: 01/22/18 05:25 Dose: 20 mg Ondansetron HCl (Zofran Odt Tab*) 4 mg PO Q6H PRN PRN Reason: n/v Pharmacy Consult (Zosyn Per Pharmacy*) 1 note FOLLOW UP .ZOSYN PER PHARMACY [facility] Tamsulosin HCl (Flomax Cap*) 0.4 mg PO MoWeFr@2100 [facility] Last Admin: 01/20/18 21:41 Dose: 0.4 mg Vital Signs 01/22/18 01/22/18 09:18 11:43 Temperature 97.7 F 97.6 F Pulse Rate 78 57 Respiratory 16 20 Rate Blood Pressure 104/44 105/46 (mmHg) O2 Sat by Pulse 98 100 Oximetry Intake and Output Last 24 Hours 01/20/18 01/21/18 01/22/18 01/23/18 06:59 06:59 06:59 06:59 Intake Total 1596 1827 1720 760 Output Total 500 1260 300 Balance 9001 996 4466 760 Intake: IV Fluids 1186 677 260 ABX - ZOSYN 677 100 NS (0.9%) 1186 160 IVPB 200 ABX - ZOSYN 200 Oral 656 764 1076 760 Output: Urine 400 0 300 Luna 1260 Residual 100 18 Fr Temperature Probe 100 Other: Estimated Void Medium Medium # Bowel Movements 1 0 1 Estimated Stool Amount Large Small # Voids 1 2 Oxygen Devices in Use Now: None Neurology Exam: Ill appearing elderly man who is frail in no acute distress. HEENT: Normocephelic/atraumatic, sclera anicteric, mucous membranes moist Neck: Supple Chest: Clear to auscultation bilaterally Cardiovascular: Regular rate and rhythm without murmurs, rubs, gallops Extremities: No clubbing, cyanosis, or edema Neurological Findings: Awake, Alert, Oriented to person, place, time, and general circumstance. Cranial Nerve: Masked facies. PERRL, EOM-I, no facial asymmetry. Undilated fundoscopic examination is limited due to small pupils. He has monocular diplopia on the right eye. Double vision resolves when covering the right eye but persists when covering the left eye. No visual or tactile extinction. Motor: s/s throughout, proximal and distal extremities x4 tone/bulk normal Sensation: intact to LT/PP bilaterally upper and lower extremities Deep Tendon Reflex: trace throughout. Bradykinesia but no dysmetria. Gait: fenestrated, shuffling gait with stooped posture and en-bloc turning Result Diagrams: 01/22/18 06:32 01/20/18 06:30 Microbiology and Other Data: Microbiology 01/19/18 02:10 Nasal Screen MRSA (PCR) - Final Nasal Mrsa Not Detected Assessment/Plan 1. Newly diagnosed Parkinson's disease- Increased Sinemet 25-100mg to 1 tablet PO daily. MRI brain without contrast to rule out secondary causes of Parkinson's disease ( e.g., vascular parkinsonism). He will benefit from acute rehabilitation. Follow-up with Dr. Petersen in 4 weeks. Consider starting Azilect as outpatient to help with his gait. 2. Monocular diplopia mostly involving the right eye- this is likely related to an intraocular process and not related to an intracranial process since it persists with left eye closure. He needs to see an coil inspector as an outpatient. 3. Asymptomatic SAH-denied any headaches or focal weakness. Defer restarting anticoagulation and anti-platelet therapy to the NSG specialist. He has not had any seizures. Discontinue Keppra on 01/25/2018. 4. Yeast in sputum- defer to the primary team. I will continue to follow Total time: 25 minutes examining the patient and discussing the treatment plan as mentioned above.
--- NOTE | 2018-01-22 15:15 | RAD ---
HISTORY: left neglect and double vision COMPARISONS: Head CT dated January 20, 2018 TECHNIQUE: The following sequences were obtained of the head: Sagittal T1-weighted images, axial T2-weighted images, axial FLAIR images, axial susceptibility weighted images, axial T1-weighted images. Additionally, axial diffusion-weighted images were obtained with calculated apparent diffusion coefficients. FINDINGS: HEMORRHAGE/INFARCT: There is no hemorrhage or acute infarct. MASSES/SHIFT: There is no mass or shift. EXTRA-AXIAL SPACES/MENINGES: There are no extra-axial fluid collections. SULCI AND VENTRICLES: There is mild diffuse and proportional enlargement of the sulci and ventricles. CEREBRUM: There is mildly elevated T2/FLAIR signal of the periventricular white matter of the atria bilaterally. There are scattered small foci of elevated T2/FLAIR signal within the subcortical white matter. BRAINSTEM: There are no focal parenchymal abnormalities. CEREBELLUM: There are no focal parenchymal abnormalities. The cerebellar tonsils are normal in size and position. SELLA: The sella is normal. PINEAL: The pineal region is clear. CP ANGLE/TEMPORAL BONES: The labyrinthine structures are grossly normal. VESSELS: Normal flow-voids are noted within the visualized vertebral vasculature. DIFFUSION ABNORMALITIES: There are no diffusion abnormalities. PARANASAL SINUSES/MASTOIDS: The paranasal sinuses are clear. ORBITS: The orbits are unremarkable. BONES AND SOFT TISSUE: No bone or soft tissue abnormalities are noted. OTHER: None IMPRESSION: 1. MILD DIFFUSE INVOLUTIONAL CHANGE WITH MILDLY ELEVATED PERIVENTRICULAR AND SUBCORTICAL T2/FLAIR SIGNAL, NONSPECIFIC THOUGH THE DIFFERENTIAL DOES INCLUDE CHRONIC SMALL VESSEL ISCHEMIA. 2. NO RESTRICTED DIFFUSION TO SUGGEST ACUTE INFARCT.
[2018-01-22] MEDS ORDERED: Potassium Chlor TAB* 20 MEQ TAB.ER PO ONE (16:47)
[2018-01-22] MEDS: Finasteride TAB* 5 MG PO SCH (20:59)
[2018-01-22] MEDS: Tamsulosin CAP* 0.4 MG PO SCH (20:59)
[2018-01-23] MEDS: ZOSYN 3.375 GM Q8H per EXTENDED INFUSION IVPB SCH ×6 (02:03→18:41)
--- NOTE | 2018-01-23 03:08 | CONS ---
CC: Dr. Brina Sánchez; Dr. Piotr Jesus * CONSULTATION REPORT: DATE OF CONSULT: 01/22/18 REASON FOR CONSULTATION: Fall and nonsustained ventricular tachycardia. HISTORY OF PRESENT ILLNESS: Mr. Raymundo Vora is an 87-year-old gentleman followed by Dr. Piotr Jesus for known coronary artery disease and chronic atrial fibrillation. The patient is a resident of [place] and was sent into [facility] on 01/19/18 and due to a fall, he tells me he was getting ready for dinner and tried to get rest. Dr. Velázquez's notes state that he was walking in his living room, he became unsteady, fell backwards striking the right occiput of his head. Emergency room workup revealed a left frontal parietal subarachnoid hemorrhage. Additional workup by Neurology revealed a newly diagnosed Parkinson's and medication has been initiated. The patient was also found to have a pneumonia on chest x-ray, is being treated with antibiotics. While on telemetry, the patient has had 2 runs of nonsustained ventricular tachycardia, an 18-beat run and a 5-beat run (monomorphic). The patient denies awareness of palpitations or racing of the heart, but he does say that he has had several months of dizziness and unsteadiness. He states he awakes up feeling pretty well, but in the afternoon and feels unsteady and dizzy. His episodes of feeling dizzy always occur when he is standing. He also mentioned 2 months of lower extremity edema for which he has tried compression stockings, but do not think it helped with any balance issues. The patient denies any recurrence of his anginal symptoms. No chest pain, pressure, heaviness, neck, arm or jaw pain. I did not elicit a history of orthopnea or PND. PAST MEDICAL HISTORY: 1. The patient has a past medical history of coronary artery disease. Cardiac catheterization in 1997, 80% LAD lesion, 80% circumflex lesion, in the event that he underwent bypass surgery (PALACIOS to the LAD, saphenous vein graft to OM2, PDA, and D2). 2. Myocardial infarction in 1992 and in 2002 underwent bypass surgery. 3. Chronic atrial fibrillation. 4. Dyslipidemia. 5. Obstructive sleep apnea on CPAP. 6. Gout. 7. Benign prostatic hypertrophy. 8. History of nephrolithiasis. 9. Cholelithiasis. 10. Cardiomyopathy. 11. Mitral insufficiency. 12. Diverticulosis. PAST SURGICAL HISTORY: CABG, tonsillectomy, cataract extractions, skin biopsies. CURRENT INPATIENT MEDICATIONS: Include: 1. Tylenol. 2. Sinemet 25/100 t.i.d. 3. Carboxymethylcellulose-glycerin eye gel. 4. Vitamin D 2000 units a day. 5. Proscar 5 mg nightly. 6. Keppra 500 mg b.i.d. 7. Prilosec 20 mg a day. 8. Zofran p.r.n. 9. Zosyn (piperacillin and tazobactam). 10. He is on Flomax 0.4 mg Saturday, Saturday, Saturday. ALLERGIES: He has no known drug allergies. FAMILY HISTORY: Significant that his father in his 50s of coronary artery disease. His mother has a history of diabetes. He has a brother, who at 46 of myocardial infarction and another brother, who at age 54 of a myocardial infarction. SOCIAL HISTORY: He is . 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 Lives at [place]. Former distant smoker. REVIEW OF SYSTEMS: See history of present illness. He has had falls and had been more unsteady, seems to feel more unsteady in the afternoons. A 2-month history of lower extremity edema. He denies fevers, chills, sweats. He is bothered by his benign prostatic hypertrophy and states he has been told to drink lot of fluids, but has not done so because of the BPH and frequent urination. He has had a recent decline in functional ability based on what the patient states in the notes from Dr. Jesus's office. All other 14 point review of systems negative. PHYSICAL EXAM: On exam, the patient is 5 feet 9 inches, weighs 158 pounds with a BMI of 23. Vital Signs: Today, blood pressure 111/45, pulse is 119, respiratory rate was 20. He is afebrile. Oxygen saturation 99% on room air. General Appearance: Frail-appearing elderly male, seated, in no acute distress. Psychologically, pleasant and cooperative. Neurologically, awake, alert, and oriented to person and place. Has not evaluated for time. Skin: Age appropriate changes, warm, dry. HEENT: Mucous membranes moist. Neck without thyromegaly or lymphadenopathy. Breath sounds were clear with good effort. No wheezes, rales or rhonchi. Coronary: S1, S2 regular. Soft, early peaking systolic murmur in the right upper sternal border and very loud pansystolic murmur heard at the apex radiating into the axilla and posterior axilla. Abdomen: Active bowel sounds. It is soft. Lower extremity showed 2 to 3+ edema and were warm. DIAGNOSTIC STUDIES/LAB DATA: Labs from today, white count 10.4, hematocrit 30, platelets 519. INR on arrival 3.12, on 01/19/18, 1.59. Labs on 01/20/18, sodium 141, potassium 3.8, chloride 111, bicarb 23, BUN 12, creatinine 0.51, glucose 102, normal transaminases. C-reactive protein on 01/20/18 was 81. C- reactive protein today 51. Troponins was checked once is 0.03. Urinalysis was unremarkable. Studies: Echocardiogram from 01/20/18 showed depressed ejection fraction 35 to 40%, normal right ventricular systolic function, aortic valve sclerosis with mild- to-moderate aortic valve stenosis, mean gradient 13 mmHg, severe mitral insufficiency, the lateral severe tricuspid insufficiency, and moderate elevation and PA pressure, estimated 53 mmHg. Chest x-ray from 01/20/18, showed left basilar infiltrate and superimposed congestive heart failure. His most recent brain study with an MRI of the brain done today showing mild diffuse involutional changes, no acute infarct. Stress echo from 08/28/17, done by Dr. Jesus showed poor exercise ability, exercising to stage 2 in the standard Joe protocol, target heart rate was not achieved, so it was nondiagnostic. Ejection fraction at that time was 45% to 50 %. Echocardiogram from 04/04/17, showed ejection fraction of 50% to 55%. Mild aortic stenosis, moderate mitral insufficiency, mild tricuspid insufficiency, and PA pressure was elevated at 44 mmHg. EKG from 01/19/18, shows atrial fibrillation with the right bundle-branch block , a ventricular rate of 78 beats a minute and single PVCs, nonspecific ST and T wave changes. IMPRESSION AND PLAN: In summary, Mr. Vora is an 87-year-old gentleman, who has had several falls, who was admitted following a fall. He has a large differential for his falls, Parkinsons, hypotension could contribute (although not significantly orthostatic while at [facility]), his cardiomyopathy and valvular insufficiency could contribute and his runs of ventricular tachycardia and this could certainly be contributing/causing. The patient's benign prostatic hypertrophy itself can increase vagal tone and medication (flomax) could also contribute. His cardiovascular status has changed since spring, his ejection fraction has declined significantly and his mitral and tricuspid insufficiency have increased markedly, they are now severe. His actual left ventricular ejection fraction may even be lower than the estimated 30% with his severe MR. The etiology of the depressed ejection fraction and increased valvular insufficiency could be functional from his chronic atrial fibrillation and it also could be ischemic or other. Options for workup could include a Lexiscan Myoview as he was unable to reach target in August; however, I would only do this if he was felt to be an interventional candidate. Medical management for the cardiomyopathy would ideally include beta blockers and RUDOLPH inhibitors, but with his recent history of falling, this could be difficult. For the patient's pulmonary hypertension and valvular insufficiency, diuretics would be of benefit, but again his low blood pressure may precluded this. While he is in the hospital, we wanted to consider gently diuresing him to get him euvolemic and then seeing then if his blood pressure does not drop, seeing if he would tolerate a low-dose RUDOLPH inhibitor perhaps a low-dose of ramipril and general beta flor. His cardiac output/myocardial function could improve with diuresis. There might be a little more room in his blood pressure if his Flomax could be stopped. The big picture if is not a reversible cause of the patient's cardiomyopathy and valvular insufficiency, these factors are going to contribute significantly to his overall functional ability and cardiomyopathy itself is very likely contributing the etiology of his nonsustained ventricular tachycardia. I did discuss with the patient potential options for defibrillator if he is felt to be a candidate. Future aggressive options might include a MitraClip. It is possible that with less mitral insufficiency, his PA pressure may improve and his tricuspid insufficiency would improve. Overall, Mr. Vora is a complex cardiovascular patient and additionally he has other comorbid conditions and coordination of his care and options will need to be done carefully. Thank you for allowing me to assist in this nice gentleman's care. [id number]/[facility] #: [id number] KIM
[2018-01-23] MEDS: Omeprazole CAP* 20 MG PO SCH (05:23)
[2018-01-23] MEDS: Cholecalciferol TAB* 1000 UNITS PO SCH (10:23)
[2018-01-23] MEDS: levETIRAcetam TAB* 500 MG PO SCH ×2 (10:33→21:29)
[2018-01-23] MEDS: Furosemide TAB* 20 MG PO SCH (10:34)
[2018-01-23] MEDS: Carbidopa/Levodop 25/100 MG TAB(*) PO SCH ×3 (10:35→21:29)
[2018-01-23] MEDS: Carboxymethylcellulose/Glyceri 10 ML OPHTH.GEL lubricant eye gel BOTH EYES SCH ×2 (10:36→21:29)
--- NOTE | 2018-01-23 11:50 | PN ---
Subjective Date of Service: 01/23/18 Length of Stay: 4 Days Neurology is following Mr. Vora for the evaluation and management of Parkinson' s disease. Interval History: He did not have a good night last night. He is waking up frequently to urinate but has trouble voiding. He then develops mild incontinence. He is frustrated with his voiding habit. The tremors have significantly improved. He is able to feed himself and can hold objects without difficulty. He still has trouble ambulating without assistance. He still has monocular diplopia. He denied any headache, focal weakness, or paresthesias. He is undergoing extensive evaluation by cardiology. Review of Systems: Denied CP, SOB, or palpitations. Family History: Unchanged from Admission Social History: Unchanged from Admission Past Medical History: Unchanged from Admission Objective Active Medications: Acetaminophen (Tylenol Tab*) 650 mg PO Q6H PRN PRN Reason: FEVER/PAIN Last Admin: 01/19/18 21:01 Dose: 650 mg Carbidopa/Levodopa (Sinemet 25/100 Tab(*)) 1 tab PO TID COUNT INCLUDES THE [facility] Last Admin: 01/23/18 10:35 Dose: 1 tab Carboxymethylcellulose/Glycerin (Refresh Optive Gel Eye Gel) 1 applic BOTH EYES BID COUNT INCLUDES THE [facility] Last Admin: 01/23/18 10:36 Dose: 1 applic Cholecalciferol (Vitamin D Tab*) 2,000 units PO DAILY COUNT INCLUDES THE [facility] Last Admin: 01/23/18 10:23 Dose: 2,000 units Finasteride (Proscar Tab*) 5 mg PO BEDTIME COUNT INCLUDES THE [facility] Last Admin: 01/22/18 20:59 Dose: 5 mg Furosemide (Lasix Tab*) 10 mg PO DAILY COUNT INCLUDES THE [facility] Last Admin: 01/23/18 10:34 Dose: 10 mg Sodium Chloride (Ns 0.9% 1000 Ml*) 1,000 mls @ 50 mls/hr IV PER RATE COUNT INCLUDES THE [facility] Last Admin: 01/19/18 23:35 Dose: 50 mls/hr Piperacillin Sod/Tazobactam (Sod 3.375 gm/ Sodium Chloride) 100 mls @ 25 mls/ hr IVPB Q8H COUNT INCLUDES THE [facility] Last Admin: 01/23/18 10:14 Dose: 25 mls/hr Levetiracetam (Keppra Tab*) 500 mg PO BID COUNT INCLUDES THE [facility] Last Admin: 01/23/18 10:33 Dose: 500 mg Omeprazole (Prilosec Cap*) 20 mg PO DAILY@0600 COUNT INCLUDES THE [facility] Last Admin: 01/23/18 05:23 Dose: 20 mg Ondansetron HCl (Zofran Odt Tab*) 4 mg PO Q6H PRN PRN Reason: n/v Pharmacy Consult (Zosyn Per Pharmacy*) 1 note FOLLOW UP .ZOSYN PER PHARMACY COUNT INCLUDES THE [facility] Spironolactone (Aldactone Tab*) 25 mg PO DAILY COUNT INCLUDES THE [facility] Tamsulosin HCl (Flomax Cap*) 0.4 mg PO MoWeFr@2100 COUNT INCLUDES THE [facility] Last Admin: 01/22/18 20:59 Dose: 0.4 mg Vital Signs 01/22/18 01/22/18 01/22/18 15:57 19:20 19:33 Temperature 97.8 F 98.3 F Pulse Rate 119 48 Respiratory 20 16 16 Rate Blood Pressure 111/45 121/57 (mmHg) O2 Sat by Pulse 99 99 Oximetry 01/22/18 01/23/18 01/23/18 19:42 00:02 00:32 Temperature 98.2 F 97.1 F Pulse Rate 83 73 Respiratory 20 18 Rate Blood Pressure 122/66 111/50 (mmHg) O2 Sat by Pulse 96 97 97 Oximetry 01/23/18 01/23/18 01/23/18 00:35 00:36 00:37 Temperature 97.1 F Pulse Rate 73 68 76 Respiratory 18 20 20 Rate Blood Pressure 111/50 121/56 112/60 (mmHg) O2 Sat by Pulse 97 97 97 Oximetry 01/23/18 01/23/18 01/23/18 03:31 04:03 04:18 Temperature 97.3 F 97.6 F Pulse Rate 75 79 Respiratory 20 20 Rate Blood Pressure 121/58 95/71 106/70 (mmHg) O2 Sat by Pulse 95 98 Oximetry 01/23/18 11:29 Temperature Pulse Rate 70 Respiratory 16 Rate Blood Pressure 102/55 (mmHg) O2 Sat by Pulse 98 Oximetry Intake and Output Last 24 Hours 01/21/18 01/22/18 01/23/18 01/24/18 06:59 06:59 06:59 06:59 Intake Total 1827 1720 1090 120 Output Total 1260 300 350 Balance 567 1420 740 120 Intake: IV Fluids 677 260 ABX - ZOSYN 677 100 NS (0.9%) 160 IVPB 200 ABX - ZOSYN 200 Oral 950 1460 1090 120 Output: Urine 0 300 350 Luna 1260 Other: Estimated Void Medium Small # Bowel Movements 0 1 0 Estimated Stool Amount Small Small # Voids 2 2 Oxygen Devices in Use Now: None Neurology Exam: Ill appearing elderly man who is frail in no acute distress. HEENT: Normocephelic/atraumatic, sclera anicteric, mucous membranes moist Neck: Supple Chest: Clear to auscultation bilaterally Cardiovascular: Regular rate and rhythm without murmurs, rubs, gallops Extremities: No clubbing, cyanosis, or edema Neurological Findings: Awake, Alert, Oriented to person, place, time, and general circumstance. Cranial Nerve: Masked facies. PERRL, EOM-I, no facial asymmetry. He has monocular diplopia on the right eye. Double vision resolves when covering the right eye but persists when covering the left eye. No visual or tactile extinction. Motor: s/s throughout, proximal and distal extremities x4 tone/bulk normal. No tremors. Sensation: intact to LT/PP bilaterally upper and lower extremities Deep Tendon Reflex: trace throughout. Bradykinesia but no dysmetria. Gait: had trouble moving from the chair back to the bed. Result Diagrams: 01/22/18 06:32 01/20/18 06:30 Microbiology and Other Data: Microbiology 01/19/18 02:10 Nasal Screen MRSA (PCR) - Final Nasal Mrsa Not Detected Diagnostic Imaging: MRI BRAIN WITHOUT CONTRAST: Susceptibility weighted imaging showed multiple areas of small asymptomatic hemorrhage involving the right cerebellum, left subarachnoid, and left frontal region. There is no evidence of acute ischemic stroke. Assessment/Plan 1. Newly diagnosed Parkinson's disease- He is tolerating Sinemet 25-100mg to 1 tablet PO daily. MRI brain without contrast showed no acute ischemic infarction. There are multiple small areas of microvascular hemorrhage. This is asymptomatic. He will benefit from acute rehabilitation. Follow-up with Dr. Petersen in 4 weeks. Consider starting Azilect as outpatient to help with his gait. 2. Monocular diplopia mostly involving the right eye- this is likely related to an intraocular process and not related to an intracranial process since it persists with left eye closure. He needs to see an hod carrier as an outpatient. 3. Asymptomatic SAH-denied any headaches or focal weakness. Defer restarting anticoagulation and anti-platelet therapy to the NSG specialist. He has not had any seizures. Discontinue Keppra on 01/25/2018. I will sign off. Total time: 15 minutes examining the patient and discussing the treatment plan as mentioned above.
[2018-01-23] MEDS: Spironolactone TAB* 25 MG PO SCH (12:02)
[2018-01-23] MEDS: Finasteride TAB* 5 MG PO SCH (21:29)
[2018-01-24] MEDS: ZOSYN 3.375 GM Q8H per EXTENDED INFUSION IVPB SCH ×6 (02:10→18:09)
[2018-01-24] MEDS: Omeprazole CAP* 20 MG PO SCH (05:08)
[2018-01-24 06:55] LABS: Hematocrit 31 % (42-52); Hemoglobin 10.4 g/dl (14.0-18.0); Mean Corpuscular HGB Conc 34 g/dl (31-36); Mean Corpuscular Hemoglobin 32 pg (27-31); Mean Corpuscular Volume 94 fL (80-94); Mean Platelet Volume 7.1 um3 (7.4-10.4); Platelet Count 540 10^3/ul (150-450); Red Blood Count 3.26 10^6/ul (4.00-5.40); Red Cell Distribution Width 20 % (10.5-15); White Blood Count 9.1 10^3/ul (3.5-10.8)
[2018-01-24 07:20] LABS: EGFR Non-African American 101.4 (>60)
[2018-01-24 07:22] LABS: ABS Basophils 0.2 10^3/ul (0-0.2); ABS Eosinophils 0.8 10^3/ul (0-0.6); ABS Lymphocytes 1.1 10^3/ul (1.0-4.8); ABS Monocytes 0.8 10^3/ul (0-0.8); ABS Neutrophils 6.1 10^3/ul (1.5-7.7); ABS Nucleated RBC 0.1 10^3/ul; Eosinophil % 9.3 % (0-6); Lymphocyte % 11.8 % (25-47); Nucleated Red Blood Cells % 0.6
[2018-01-24] MEDS: levETIRAcetam TAB* 500 MG PO SCH ×2 (08:55→21:51)
[2018-01-24] MEDS: Cholecalciferol TAB* 1000 UNITS PO SCH (08:57)
[2018-01-24] MEDS: Spironolactone TAB* 25 MG PO SCH (09:00)
[2018-01-24] MEDS: Carboxymethylcellulose/Glyceri 10 ML OPHTH.GEL lubricant eye gel BOTH EYES SCH ×2 (09:05→22:07)
[2018-01-24] MEDS: Carbidopa/Levodop 25/100 MG TAB(*) PO SCH ×3 (09:05→21:51)
[2018-01-24] MEDS: Furosemide TAB* 20 MG PO SCH (09:06)
[2018-01-24] MEDS ORDERED: Magnesium Sulfate 2 GM IV* 2 GM/50 ML BAG IVPB ONE (09:39)
--- NOTE | 2018-01-24 15:29 | PN ---
Subjective Date of Service: 01/24/18 Interval History: f/u CHF, NSVT Patient denies any current dyspnea Remains volume overloaded No sustained arrhythmia or afib pauses greater than 5 seconds since admission x 34 years, met at [facility] at [facility] 4 children 2 youngest are healthcare proxies, none live locally, one from [facility] this weekend Admitted with parkinsons (newly diagnosed) related fall Medications Active Medications: Acetaminophen (Tylenol Tab*) 650 mg PO Q6H PRN PRN Reason: FEVER/PAIN Last Admin: 01/19/18 21:01 Dose: 650 mg Carbidopa/Levodopa (Sinemet 25/100 Tab(*)) 1 tab PO TID [facility] Last Admin: 01/24/18 09:05 Dose: 1 tab Carboxymethylcellulose/Glycerin (Refresh Optive Gel Eye Gel) 1 applic BOTH EYES BID [facility] Last Admin: 01/24/18 09:05 Dose: 1 applic Cholecalciferol (Vitamin D Tab*) 2,000 units PO DAILY [facility] Last Admin: 01/24/18 08:57 Dose: 2,000 units Finasteride (Proscar Tab*) 5 mg PO BEDTIME [facility] Last Admin: 01/23/18 21:29 Dose: 5 mg Furosemide (Lasix Tab*) 10 mg PO DAILY [facility] Last Admin: 01/24/18 09:06 Dose: 10 mg Piperacillin Sod/Tazobactam (Sod 3.375 gm/ Sodium Chloride) 100 mls @ 25 mls/ hr IVPB Q8H [facility] Last Admin: 01/24/18 08:46 Dose: 25 mls/hr Levetiracetam (Keppra Tab*) 500 mg PO BID [facility] Last Admin: 01/24/18 08:55 Dose: 500 mg Omeprazole (Prilosec Cap*) 20 mg PO DAILY@0600 [facility] Last Admin: 01/24/18 05:08 Dose: 20 mg Ondansetron HCl (Zofran Odt Tab*) 4 mg PO Q6H PRN PRN Reason: n/v Pharmacy Consult (Zosyn Per Pharmacy*) 1 note FOLLOW UP .ZOSYN PER PHARMACY [facility] Spironolactone (Aldactone Tab*) 25 mg PO DAILY [facility] Last Admin: 01/24/18 09:00 Dose: 25 mg Tamsulosin HCl (Flomax Cap*) 0.4 mg PO MoWeFr@2100 [facility] Last Admin: 01/22/18 20:59 Dose: 0.4 mg Objective Vital Signs: Temp Pulse Resp BP Pulse Ox 97.6 F 82 16 113/59 99 01/24/18 08:03 01/24/18 08:03 01/24/18 08:03 01/24/18 08:03 01/24/18 08:03 Oxygen Devices in Use Now: None Appearance: frail, elderly, very pleasant Respiratory: Symmetrical Chest Expansion and Respiratory Effort, - - b/l rales Cardiovascular: - - irregularly irregular, 2/6 systolic mrumur, severely elevated jvd Skin: No Rash or Ulcers Neurological: Alert and Oriented x 3 Laboratory Results: 01/24/18 06:38 01/24/18 06:38 INR (Anticoag Therapy) 1.59 (0.77-1.02) H 01/19/18 04:46 APTT 42.4 seconds (26.0-36.3) H 01/18/18 21:40 Total Bilirubin 0.70 mg/dL (0.2-1.0) 01/18/18 21:41 AST 18 U/L (13-39) 01/18/18 21:41 ALT 15 U/L (7-52) 01/18/18 21:41 Alkaline Phosphatase 133 U/L (34-104) H 01/18/18 21:41 B-Natriuretic Peptide 479 pg/mL (-100) H 01/24/18 06:38 Total Protein 6.1 g/dL (6.4-8.9) L 01/18/18 21:41 Albumin 3.6 g/dL (3.2-5.2) 01/18/18 21:41 Globulin 2.5 g/dL (2-4) 01/18/18 21:41 Albumin/Globulin Ratio 1.4 (1-3) 01/18/18 21:41 01/18/18 21:41 Troponin I 0.03 EKG Data: ekg shows afib 78 bpm Echo this admission I reviewed mild-moderate LV dysfunction in AFib Severe functional MR Moderate low gradient , difficult to evaluate due to AFib TR was overestimated because unfortunately nyquist was left low during part of evaluation Assessment/Plan - Continue diuresis - Would add low dose AceI/ARB at some point - Chronic AFib pauses are not new and were not symptomatic in past and none were or are greater than 5 seconds while awake although they do probably limit beta-flor use
[2018-01-24] MEDS: Tamsulosin CAP* 0.4 MG PO SCH (21:51)
[2018-01-24] MEDS: Finasteride TAB* 5 MG PO SCH (21:51)
[2018-01-25] MEDS: ZOSYN 3.375 GM Q8H per EXTENDED INFUSION IVPB SCH ×6 (02:29→17:35)
[2018-01-25] MEDS: Omeprazole CAP* 20 MG PO SCH (05:49)
[2018-01-25 08:46] LABS: Urine Appearance Cloudy; Urine Blood 2+ (Negative); Urine Color Yellow; Urine Ketones Negative (Negative); Urine Protein Negative (Negative); Urine Red Blood Cell Trace(0-2/hpf) (Absent); Urine Specific Gravity 1.006 (1.010-1.030); Urine Urobilinogen Negative (Negative); Urine White Blood Cell Trace(0-5/hpf) (Absent)
[2018-01-25] MEDS: Carboxymethylcellulose/Glyceri 10 ML OPHTH.GEL lubricant eye gel BOTH EYES SCH ×2 (08:57→19:45)
[2018-01-25] MEDS: Cholecalciferol TAB* 1000 UNITS PO SCH (08:58)
[2018-01-25] MEDS: levETIRAcetam TAB* 500 MG PO SCH ×2 (08:58→19:47)
[2018-01-25] MEDS: Spironolactone TAB* 25 MG PO SCH ×2 (08:58→17:34)
[2018-01-25] MEDS: Furosemide TAB* 20 MG PO SCH (08:58)
[2018-01-25] MEDS: Carbidopa/Levodop 25/100 MG TAB(*) PO SCH ×3 (08:58→19:47)
--- NOTE | 2018-01-25 09:00 | PN ---
Subjective Date of Service: 01/25/18 Interval History: f/u CHF, NSVT Patient feeling ok Diuresing well but some incontinence volume status better today Sitting up eating no sustained arrhythmias or severe pauses Medications Active Medications: Acetaminophen (Tylenol Tab*) 650 mg PO Q6H PRN PRN Reason: FEVER/PAIN Last Admin: 01/19/18 21:01 Dose: 650 mg Carbidopa/Levodopa (Sinemet 25/100 Tab(*)) 1 tab PO TID [facility] Last Admin: 01/24/18 21:51 Dose: 1 tab Carboxymethylcellulose/Glycerin (Refresh Optive Gel Eye Gel) 1 applic BOTH EYES BID [facility] Last Admin: 01/24/18 22:07 Dose: 1 applic Cholecalciferol (Vitamin D Tab*) 2,000 units PO DAILY [facility] Last Admin: 01/24/18 08:57 Dose: 2,000 units Finasteride (Proscar Tab*) 5 mg PO BEDTIME [facility] Last Admin: 01/24/18 21:51 Dose: 5 mg Furosemide (Lasix Tab*) 10 mg PO DAILY [facility] Last Admin: 01/24/18 09:06 Dose: 10 mg Piperacillin Sod/Tazobactam (Sod 3.375 gm/ Sodium Chloride) 100 mls @ 25 mls/ hr IVPB Q8H [facility] Last Admin: 01/25/18 02:29 Dose: 25 mls/hr Levetiracetam (Keppra Tab*) 500 mg PO BID [facility] Last Admin: 01/24/18 21:51 Dose: 500 mg Omeprazole (Prilosec Cap*) 20 mg PO DAILY@0600 [facility] Last Admin: 01/25/18 05:49 Dose: 20 mg Ondansetron HCl (Zofran Odt Tab*) 4 mg PO Q6H PRN PRN Reason: n/v Pharmacy Consult (Zosyn Per Pharmacy*) 1 note FOLLOW UP .ZOSYN PER PHARMACY [facility] Spironolactone (Aldactone Tab*) 25 mg PO DAILY [facility] Last Admin: 01/24/18 09:00 Dose: 25 mg Tamsulosin HCl (Flomax Cap*) 0.4 mg PO MoWeFr@2100 [facility] Last Admin: 01/24/18 21:51 Dose: 0.4 mg Objective Vital Signs: Temp Pulse Resp BP Pulse Ox 97.6 F 92 18 112/47 95 01/25/18 07:48 01/25/18 07:48 01/25/18 08:00 01/25/18 07:48 01/25/18 07:48 Oxygen Devices in Use Now: None Appearance: frail, elderly, very pleasant Respiratory: Symmetrical Chest Expansion and Respiratory Effort, - - clear Cardiovascular: - - irregularly irregular, 2/6 systolic mrumur apex, mild jvd Extremities: - - 1+ edema ankles Skin: No Rash or Ulcers Neurological: Alert and Oriented x 3 Laboratory Results: 01/24/18 06:38 01/25/18 05:27 INR (Anticoag Therapy) 1.59 (0.77-1.02) H 01/19/18 04:46 APTT 42.4 seconds (26.0-36.3) H 01/18/18 21:40 Total Bilirubin 0.70 mg/dL (0.2-1.0) 01/18/18 21:41 AST 18 U/L (13-39) 01/18/18 21:41 ALT 15 U/L (7-52) 01/18/18 21:41 Alkaline Phosphatase 133 U/L (34-104) H 01/18/18 21:41 B-Natriuretic Peptide 611 pg/mL (-100) H 01/25/18 05:27 Total Protein 6.1 g/dL (6.4-8.9) L 01/18/18 21:41 Albumin 3.6 g/dL (3.2-5.2) 01/18/18 21:41 Globulin 2.5 g/dL (2-4) 01/18/18 21:41 Albumin/Globulin Ratio 1.4 (1-3) 01/18/18 21:41 01/18/18 21:41 Troponin I 0.03 EKG Data: ekg shows afib 78 bpm Echo this admission I reviewed mild-moderate LV dysfunction in AFib Severe functional MR Moderate low gradient , difficult to evaluate due to AFib TR was overestimated because unfortunately nyquist was left low during part of evaluation Assessment/Plan - Continue diuresis - Would add low dose AceI/ARB at some point for afterload reduction - Chronic AFib pauses are not new and were not symptomatic in past and none were or are greater than 5 seconds while awake although they do probably limit beta-flor use - Once clear from a neurologic standpoint would restart anticoagulation without aspirin
[2018-01-25] MEDS: Finasteride TAB* 5 MG PO SCH (19:47)
[2018-01-26] MEDS: ZOSYN 3.375 GM Q8H per EXTENDED INFUSION IVPB SCH ×4 (02:30→09:43)
[2018-01-26] MEDS: Omeprazole CAP* 20 MG PO SCH (05:19)
[2018-01-26 06:46] LABS: EGFR Non-African American 99.8 (>60)
[2018-01-26] MEDS: Carbidopa/Levodop 25/100 MG TAB(*) PO SCH ×3 (08:43→20:15)
[2018-01-26] MEDS: Furosemide TAB* 20 MG PO SCH (08:43)
[2018-01-26] MEDS: Carboxymethylcellulose/Glyceri 10 ML OPHTH.GEL lubricant eye gel BOTH EYES SCH ×2 (08:44→19:47)
[2018-01-26] MEDS: Cholecalciferol TAB* 1000 UNITS PO SCH (08:44)
[2018-01-26] MEDS: Spironolactone TAB* 25 MG PO SCH ×2 (08:44→16:38)
[2018-01-26] MEDS: levETIRAcetam TAB* 500 MG PO SCH ×2 (08:44→20:15)
[2018-01-26] MEDS: Amoxicillin/Clavulanate TAB* 875 MG PO SCH (20:15)
[2018-01-26] MEDS: Finasteride TAB* 5 MG PO SCH (20:15)
[2018-01-27] MEDS: Carboxymethylcellulose/Glyceri 10 ML OPHTH.GEL lubricant eye gel BOTH EYES SCH ×2 (09:27→20:08)
[2018-01-27] MEDS: Furosemide TAB* 20 MG PO SCH (09:28)
[2018-01-27] MEDS: Spironolactone TAB* 25 MG PO SCH ×2 (09:29→17:26)
[2018-01-27] MEDS: Carbidopa/Levodop 25/100 MG TAB(*) PO SCH ×3 (09:29→20:06)
[2018-01-27] MEDS: Cholecalciferol TAB* 1000 UNITS PO SCH (09:30)
[2018-01-27] MEDS: Amoxicillin/Clavulanate TAB* 875 MG PO SCH ×2 (09:30→20:06)
[2018-01-27] MEDS: levETIRAcetam TAB* 500 MG PO SCH ×2 (09:30→20:05)
[2018-01-27] MEDS: Finasteride TAB* 5 MG PO SCH (20:05)
[2018-01-27] MEDS: Tamsulosin CAP* 0.4 MG PO SCH (20:05)
[2018-01-28 06:21] LABS: Hematocrit 31 % (42-52); Hemoglobin 10.6 g/dl (14.0-18.0); Mean Corpuscular HGB Conc 34 g/dl (31-36); Mean Corpuscular Hemoglobin 32 pg (27-31); Mean Corpuscular Volume 94 fL (80-94); Mean Platelet Volume 7.3 um3 (7.4-10.4); Platelet Count 544 10^3/ul (150-450); Red Blood Count 3.31 10^6/ul (4.00-5.40); Red Cell Distribution Width 21 % (10.5-15); White Blood Count 9.5 10^3/ul (3.5-10.8)
[2018-01-28 06:29] LABS: EGFR Non-African American 108.2 (>60)
[2018-01-28 07:19] LABS: ABS Basophils 0.3 10^3/ul (0-0.2); ABS Eosinophils 0.7 10^3/ul (0-0.6); ABS Lymphocytes 1.1 10^3/ul (1.0-4.8); ABS Monocytes 0.9 10^3/ul (0-0.8); ABS Neutrophils 6.5 10^3/ul (1.5-7.7); ABS Nucleated RBC 0 10^3/ul; Eosinophil % 7.8 % (0-6); Lymphocyte % 11.5 % (25-47); Nucleated Red Blood Cells % 0.1
[2018-01-28] MEDS: Carboxymethylcellulose/Glyceri 10 ML OPHTH.GEL lubricant eye gel BOTH EYES SCH (08:39)
[2018-01-28] MEDS: Cholecalciferol TAB* 1000 UNITS PO SCH (08:40)
[2018-01-28] MEDS: Furosemide TAB* 20 MG PO SCH (08:40)
[2018-01-28] MEDS: Carbidopa/Levodop 25/100 MG TAB(*) PO SCH (08:41)
[2018-01-28] MEDS: levETIRAcetam TAB* 500 MG PO SCH (08:41)
[2018-01-28] MEDS: Spironolactone TAB* 25 MG PO SCH (08:41)
[2018-01-28 09:31] VITALS: BP 110/55
--- NOTE | 2018-01-28 12:14 | TRS ---
CC: Dr. Jesus; Mary * TRANSFER SUMMARY: DATE OF ADMISSION: 01/18/18 DATE OF TRANSFER: 01/28/18 DIAGNOSES: 1. Subarachnoid hemorrhage due to trauma. 2. Pneumonia. 3. Congestive heart failure. 4. Nonsustained ventricular tachycardia. 5. Parkinson disease, newly diagnosed. 6. Aortic stenosis. 7. Benign prostatic hypertrophy. 8. Hyperlipidemia. 9. History of obstructive sleep apnea. 10. History of gout. 11. Chronic atrial fibrillation. 12. Coronary artery disease. 13. History of nephrolithiasis. 14. Cholelithiasis. 15. Mitral insufficiency. 16. Diverticulosis. 17. History of vitamin D deficiency. 18. Anemia of acute illness. 19. Supratherapeutic INR. 20. Hypomagnesemia. HISTORY: Raymundo Vora is an 87-year-old man admitted after having fallen and hitting his head. Please see dictated admission note for details of present illness and past medical history, family history, social and personal history, review of systems and physical examination. LABORATORY DATA: CBC on admission: WBC is 13, H and H 10.3/31, MCV 94, platelets 460,000. Subsequent white count went up as high as 15.6 on 01/20/18. H and H remained relatively stable. CBC prior to discharge on 01/28/18: WBC is 9.5, H and H is 10.6/31, MCV 94, platelets 544,000. INR on admission was 3.12, PTT 42.4. INR on 01/19/18 was 1.59. Chemistries on 01/18/18: Sodium 138 , potassium 3.9, chloride 107, CO2 of 27, BUN and creatinine 17/0.68, glucose 164, calcium 8.8. Rest of the comprehensive metabolic panel was within normal limits except for alkaline phosphatase 133, total protein 6.1. Magnesium was 1.8 on 01/23/18, up to 2 on 01/25/18 and was 1.9 on 01/26/18. Troponin I was 0.03 on admission. CRP was 80.94 on 01/20/18, down to 8.91 on 01/07. BNPs were 603 on 01/21/18, 479 on 01/24/18, 611 on 01/25/18 and 476 on . Procalcitonin was normal at 0.1. Urinalysis on 01/18/18: Yellow, clear, specific gravity 1.018, urobilinogen positive. Urinalysis on 01/25/18: Yellow, cloudy, specific gravity 1.006, pH 8. Dipstick is positive for blood 2+ , wbc's trace, rbc's trace, squamous epithelial cells present. Urine culture on 01/25/18 was no growth. Sputum on 01/21/18 was normal yuliya with yeast. IMAGING: Brain CT on 01/18/18 showed posttraumatic subarachnoid hemorrhage in the left frontoparietal region. Also seen were chronic sinusitis changes, atrophy. Cervical spine CT on 01/18/18 showed no acute fractures. Brain CT on 01/19/18 done twice showed stable hemorrhage. On 01/20/18, the hemorrhage was diminished in size. Chest x-ray on 01/20/18 showed left lower lobe pneumonia and superimposed congestive heart failure. Brain MRI on 01/22/18 showed resolution of the subarachnoid hemorrhage, no stroke, chronic small vessel ischemia. EKG on 01/18/18 showed atrial fibrillation, intraventricular conduction delay. EKG on 01/20/18 showed atrial fibrillation, PVCs, right bundle branch block and left posterior fascicular block, no significant changes. Transthoracic echocardiogram 01/20/18 showed diminished EF with 35% to 40%, left ventricular septal wall motion abnormality, basal inferior wall segment akinesis, right ventricular global systolic function normal, moderate thickening of the aortic valve with mild to moderate aortic stenosis, severe mitral regurgitation. LV function was slightly worse compared to 06/09/14. Pulmonary hypertension and mitral regurgitation was worse. CONSULTATIONS: Neurosurgery, Dr. Seymour, 01/19/18 recommended observation, [place], following CT scans, Neurology consultation on 01/20/18, Dr. Montano recommended treatment of Parkinson disease with carbidopa and levodopa, recommended physical and occupational therapy. Recommended continuing observation on Keppra for the subarachnoid hemorrhage. Cardiology consultation 01/22/18, Dr. Salazar recommended diuresis for congestive heart failure. She did not recommend Lexiscan Myoview unless he were an interventional candidate. She felt that beta-blockers and RUDOLPH inhibitors would be difficult to give him because of his history of falling, low blood pressure and slow heart rate. She recommended getting him euvolemic and then reassessing his cardiac status. She felt that future aggressive observations could include a MitraClip. Defibrillator was discussed but not felt to be indicated at this point. Followup consultations from Cardiology, Dr. Mejia recommended continued diuresis, adding low dose RUDOLPH or ARB at some point. He did not feel the atrial fibrillation with pauses limited beta-flor use. He recommended once cleared from a neurological standpoint, restarting anticoagulation without aspirin. HOSPITAL COURSE: The patient was admitted, initially to the ICU and subsequently transferred to the telemetry floor. He was kept on Keppra through 01/27/18. He had physical therapy. He was treated for pneumonia with Zosyn and then Augmentin. He was treated for Parkinson's with gradual increase in his carbidopa/levodopa on dosage. He improved clinically. He was noted to have nonsustained ventricular tachycardia on telemetry. This was asymptomatic. He was treated with low-dose furosemide and spironolactone for congestive heart failure and diuresed. His legs were edematous, his edema came down. His weights went from 158 down to 136 with diuresis (not clear whether the first weight was correct). His legs became clearly less edematous, though. At the time of discharge he is being transferred to the [facility]. He should continue current medical regimen. His weights should continue to be monitored daily. DISCHARGE MEDICATIONS: At the time of discharge, he is on the following medications: 1. Acetaminophen 650 q.6 hours p.r.n. fever or pain. 2. Carbidopa/levodopa 25/100 t.i.d. 3. Refresh Optive Gel eyedrops 1 application b.i.d. both eyes. 4. Vitamin D 2000 units daily. 5. Finasteride 5 mg at h.s. 6. Furosemide 10 mg daily. 7. Spironolactone 25 mg twice a day. 8. Tamsulosin 0.4 mg 3 times a week. DIET: He is to be on a regular diet. CODE STATUS: He is considering whether he wants to be DNR. He is still a full code. He is discussing this with his family. [id number]/[facility] #: [id number] [facility]
== END 2018-01-28 10:45 | DRG 85 ==
LOC: ED 20:49 → ICU 01-19 00:53 → MEDTELE 01-20 13:00
PROVIDERS: ADMIT Hospitalist; ATTEND Internal Medicine Geriatric Medicine
PROC: 30283B1 Transfusion of Nonautologous 4-Factor Prothrombin Complex Concentrate into Vein, Percutaneous Approach (ICD-10-PCS; principal; 2018-01-19)
DX: S06.6X0A Traumatic subarachnoid hemorrhage without loss of consciousness, initial encounter (principal); J18.1 Lobar pneumonia, unspecified organism; I42.9 Cardiomyopathy, unspecified; I47.2 Ventricular tachycardia; I45.2 Bifascicular block; I25.10 Atherosclerotic heart disease of native coronary artery without angina pectoris; W20.1XXA Struck by object due to collapse of building, initial encounter; I48.2 Chronic atrial fibrillation; E78.5 Hyperlipidemia, unspecified; M10.9 Gout, unspecified; N40.0 Benign prostatic hyperplasia without lower urinary tract symptoms; T45.515A Adverse effect of anticoagulants, initial encounter; Y92.238 Other place in hospital as the place of occurrence of the external cause; M19.032 Primary osteoarthritis, left wrist; M06.9 Rheumatoid arthritis, unspecified; F32.9 Major depressive disorder, single episode, unspecified; Z96.1 Presence of intraocular lens; S50.312A Abrasion of left elbow, initial encounter; G20 Parkinson's disease; G47.33 Obstructive sleep apnea (adult) (pediatric); K80.20 Calculus of gallbladder without cholecystitis without obstruction; K57.90 Diverticulosis of intestine, part unspecified, without perforation or abscess without bleeding; I08.3 Combined rheumatic disorders of mitral, aortic and tricuspid valves; I50.9 Heart failure, unspecified; I11.0 Hypertensive heart disease with heart failure; I27.20 Pulmonary hypertension, unspecified; K59.09 Other constipation; I95.1 Orthostatic hypotension; D64.9 Anemia, unspecified; E83.42 Hypomagnesemia; E55.9 Vitamin D deficiency, unspecified; R79.1 Abnormal coagulation profile; J32.8 Other chronic sinusitis; R19.7 Diarrhea, unspecified; H53.2 Diplopia; Z23 Encounter for immunization; I25.2 Old myocardial infarction; Z99.81 Dependence on supplemental oxygen; Z83.3 Family history of diabetes mellitus; Z79.01 Long term (current) use of anticoagulants; Z97.4 Presence of external hearing-aid; Z85.828 Personal history of other malignant neoplasm of skin; Z95.1 Presence of aortocoronary bypass graft; Z87.442 Personal history of urinary calculi; Z98.42 Cataract extraction status, left eye; Z98.41 Cataract extraction status, right eye; Z72.89 Other problems related to lifestyle; Z87.891 Personal history of nicotine dependence; Y92.008 Other place in unspecified non-institutional (private) residence as the place of occurrence of the external cause; Z82.49 Family history of ischemic heart disease and other diseases of the circulatory system
CPT/HCPCS: 36415; 70450; 70551; 71046; 72125; 80048; 80053; 81003; 81015; 83735; 83880; 84145; 84484; 85025; 85610; 85730; 86140; 87070; 87086; 87205; 87641; 90686; 93005; 93306; 99285; A9270-GY; C9132; G8978-GP-CJ; G8978-GP-CK; G8979-GP-CI; G8987-GO-CL; G8988-GO-CI; J2543; J3475

== ENCOUNTER 2018-01-28 09:12 | Inpatient (IN) | payer MEDICARE, BC ==
[2018-01-28] MEDS ORDERED: Acetaminophen TAB* 325 MG PO PRN (11:42)
--- NOTE | 2018-01-28 12:42 | PMRUTEAM ---
PMRU: Team Meeting Current Status: Physical Therapy: Current Status Bed Mobility Assistance Contact Guard Transfer Moblility Assistance Contact Guard Ambulation Assistance Contact Guard 200 feet Ambulation Assistive Devices Rolling Walker Stairs Assistance Not Tested OCCUPATIONAL THERAPY CURRENT STATUS: Set up UB Dressing, Mod Assist LB dressing , Mod assist bathing, min assist toileting, CG Toilet transfers SPEECH LANGUAGE PATHOLOGY CURRENT STATUS: [facility] soft diet, nectar thick liquids , with signs/symptoms of aspiration. No cognitive deficts uncovered yet Goals: PHYSICAL THERAPY: Independent transfers, independent ambulation 150 feet with FWW OCCUPATIONAL THERAPY: Independent toileting, may need assist for LB dressing. May need assist for tub transfers SPEECH THERAPY: Independently tolerate least restrictive diet, with no complications from aspiration Care Plan: Care Plan Cardiovascular- Improve/Maintain Start: 01/28/18 11:16 Freq: QSHIFT Status: Active Target: Protocol: Activity Type Activity Date Activity User E-Sign Co-Sign Detail Recorded Client Recorded Date Recorded By Document 01/28/18 11:00 [id number] 01/28/18 11:33 [id number] 01/28/18 11:00 PMRU Outcome: Cardiovascular Vital Signs q Shift for 48hrs Then BID Yes Daily Weight Ordered No Current Cardiovascular Outcome/Goal Maintain/ Achieve Baseline HR, BP , Perfusion Progression Toward Outcome/Goal Progressing DVT Prophylaxis- Improve/Maintain Start: 01/28/18 11:16 Freq: QSHIFT Status: Active Target: Protocol: Activity Type Activity Date Activity User E-Sign Co-Sign Detail Recorded Client Recorded Date Recorded By Document 01/28/18 11:00 [id number] 01/28/18 11:33 [id number] 01/28/18 11:00 PMRU Outcome: DVT Prophylaxis Outcome/Goals Remains Free of DVT Complies with DVT Prophylaxis /Treatment Demonstrates Knowledge of DVT Prevention/ Treatment TEDS Stockings on Every AM, Off at HS Progression Toward Outcome/Goals Progressing Education-Improve/Maintain Start: 01/28/18 11:16 Freq: QSHIFT Status: Active Target: Protocol: Activity Type Activity Date Activity User E-Sign Co-Sign Detail Recorded Client Recorded Date Recorded By Document 01/28/18 11:00 [id number] [email or web address] 01/28/18 11:33 [id number] 01/28/18 11:00 PMRU Outcome: Education Outcome/Goals Demonstrates Skills Encourage Questions Progression Toward Outcome/Goals Progressing /GI-Improve/Maintain Start: 01/28/18 11:16 Freq: QSHIFT Status: Active Target: Protocol: Activity Type Activity Date Activity User E-Sign Co-Sign Detail Recorded Client Recorded Date Recorded By Document 01/28/18 11:00 [id number] 01/28/18 11:33 [id number] 01/28/18 11:00 PMRU Outcome: Genitourinary/ Gastrointestinal Genitourinary- Outcome/Goals Maintain/ Achieve Urinary Continence Remain Free of Hospital- Acquired UTI Gastrointestinal-Outcome/Goals Maintain/ Achieve Bowel Regularity in Accordance with Pt's Baseline Prevent Constipation Laxatives as Ordered Progression Toward Outcome/Goals - Progressing Progression Toward Outcome/Goals - GI Progressing Medication Administration Start: 01/28/18 11:16 Freq: QSHIFT Status: Active Target: Protocol: Activity Type Activity Date Activity User E-Sign Co-Sign Detail Recorded Client Recorded Date Recorded By Document 01/28/18 11:00 [id number] [email or web address] 01/28/18 11:33 [id number] 01/28/18 11:00 PMRU Outcome: Medication Administration Assess Patient Knowledge/Teach Med Yes Education for all Meds Outcome/Goals Patient Independent with Medication Administration at Home Demonstrates Understanding Progression Towards Outcome/Goals Progressing Is Patient Going Home on Lovenox? No Neurological- Improve/Maintain Start: 01/28/18 11:16 Freq: QSHIFT Status: Active Target: Protocol: Activity Type Activity Date Activity User E-Sign Co-Sign Detail Recorded Client Recorded Date Recorded By Document 01/28/18 11:00 [id number] 01/28/18 11:33 [id number] 01/28/18 11:00 PMRU Outcome: Neurological Weakness/Aphasia Weakness Weakness/Aphasia Comment s/p CVA, new diagnosis of Parkinsons, drooling r side of mouth Outcome/Goals Maintain/ Achieve Baseline Neurological Status Improve Neurological Status Prevent Avoidable Neurological Decline Demonstrate Knowledge of Prevention/Tx of Neuro Disorders/ Complication Maintain/ Improve Strength/ROM Progression Toward Outcome/Goals Progressing Respiratory - Improve/Maintain Start: 01/28/18 11:16 Freq: QSHIFT Status: Active Target: Protocol: Activity Type Activity Date Activity User E-Sign Co-Sign Detail Recorded Client Recorded Date Recorded By Document 01/28/18 11:00 [id number] 01/28/18 11:33 [id number] 01/28/18 11:00 PMRU Outcome: Respiratory Does Patient Have a Trach No Outcome/Goals Maintain/ Improve Baseline Respiratory Status Maintain/ Improve Activity Tolerance Prevent Pneumonia/ Atelectasis Progression Toward Outcome/Goals Progressing Safety- Improve/Maintain Start: 01/28/18 11:16 Freq: QSHIFT Status: Active Target: Protocol: Activity Type Activity Date Activity User E-Sign Co-Sign Detail Recorded Client Recorded Date Recorded By Document 01/28/18 11:00 [id number] 01/28/18 11:33 [id number] 01/28/18 11:00 PMRU Outcome: Safety Outcome/Goals Remain Free of Injury or Harm Prevent Falls/ Injury Progression Toward Outcome/Goals Progressing Skin- Improve/Maintain Start: 01/28/18 11:16 Freq: QSHIFT Status: Active Target: Protocol: Activity Type Activity Date Activity User E-Sign Co-Sign Detail Recorded Client Recorded Date Recorded By Document 01/28/18 11:00 [id number] 01/28/18 11:33 [id number] 01/28/18 11:00 PMRU Outcome: Skin Skin Risk Level Medium Skin Orders Turn/Position q2hr While in Bed Outcome/Goals Maintain/ Improve Skin Intergrity Progression Toward Outcome/Goals Progressing Medicine Note: Length of Stay: 7 days Anticipated Discharge Destination: Tentative Discharge Date: 02/04/18 Discharged to: home
[2018-01-28] MEDS: Carbidopa/Levodop 25/100 MG TAB(*) PO SCH ×2 (14:45→20:09)
[2018-01-28] MEDS: Spironolactone TAB* 25 MG PO SCH (16:54)
[2018-01-28] MEDS: Finasteride TAB* 5 MG PO SCH (20:10)
[2018-01-28] MEDS: CARBOXYMETHYLCELLULOSE LUBRICANT EYE BOTH EYES SCH (20:11)
[2018-01-28] MEDS: GLYCERI BOTH EYES SCH (20:11)
[2018-01-28] MEDS: Docusate CAP* 100 MG PO SCH (20:13)
--- NOTE | 2018-01-28 22:03 | HP ---
INPATIENT HISTORY AND PHYSICAL: DATE OF ADMISSION: 01/28/18 CHIEF COMPLAINT: Subarachnoid hemorrhage. HISTORY OF PRESENT ILLNESS: Raymundo Vora is an 87-year-old white male. He has a history of atrial fibrillation and was on Coumadin chronically. He also has benign prostatic hypertrophy and took Flomax for that. The patient was having frequent falls over the last 6 months. On 01/17/18, he felt unsure of himself and had concerns about his gait. Then on 01/18/18, he apparently stood up and was moving from one room to another when he fell backwards. He hit the right side of his head. He denied any loss of consciousness. The patient was brought to [facility]. A CAT scan of his head was done where he was found to have a small left subarachnoid hemorrhage. His anticoagulation was reversed. His aspirin was held. He was seen by Neurosurgery, who put him on Keppra for a total of 7 days and he had no seizure activity noted. Also of note was the fact that the patient said he was having balance trouble for 6 months. He also describes tremors in his right hand, which would get worse as the day went on. He was describing inability to button his shirts and tremors in his left leg as well. The patient was seen by Neurology in the hospitalist as well as Neurosurgery. The neurologist felt that he had significant cogwheeling in the right arm and left leg. Dr. Montano, the neurologist, felt that the patient had Parkinson's disease and recommended a trial of Sinemet. The patient also had a Cardiology consult because of congestive heart failure. Dr. Salazar saw the patient and recommended diuresis and hoped that beta blockers and then RUDOLPH inhibitor could be used, but unfortunately his blood pressure would not tolerate it. A cardiac defibrillator was discussed, but not felt to be necessary at this point. Of note, the patient did have nonsustained V-tach seen on telemetry. He was asymptomatic, and it was not recommended to start him on anything. He was continued on spironolactone and low dose Lasix. His edema came down in his legs and he lost significant weight. The patient also was treated for pneumonia while on the acute service with his Zosyn and then later p.o. Augmentin. PAST MEDICAL HISTORY: Significant for the aforementioned benign prostatic hypertrophy, atrial fibrillation, vitamin D deficiency, aortic stenosis, atrial fibrillation. CURRENT MEDICATIONS: Include: 1. Tylenol. 2. Sinemet. 3. Vitamin D. 4. Proscar. 5. Lasix. 6. Aldactone. 7. Flomax. ALLERGIES: The patient has no known drug allergies. SOCIAL HISTORY: He is a nonsmoker and nondrinker. Lives by himself in an apartment at [facility]. He has 4 children, none of whom live in the area. He has 2 sons in [facility], a son in [place], and a daughter who lives in [place]. REVIEW OF SYSTEMS: The patient reports no current shortness of breath or chest pain. PHYSICAL EXAMINATION VITAL SIGNS: The patient's temperature is 97.7, blood pressure is 128/67, pulse is 90, respirations 18. HEENT: His extraocular movements are intact. Tongue is midline. NECK: Supple. LUNGS: Sound clear to auscultation bilaterally. HEART: Sounds are irregular. ABDOMEN: Soft and nontender. EXTREMITIES: His extremities showed slightly increased tone with cogwheeling suggested. Peripheral pulses were intact. Slight edema in both feet. NEUROLOGIC: He was awake, alert, oriented, mild tremor noted in his left leg. His muscle strength appeared to be 4+/5 throughout. His functional exam, he transfers with contact guard. ASSESSMENT: 1. Subarachnoid hemorrhage. 2. Newly diagnosed Parkinson's disease. PLAN/RECOMMENDATIONS: Integrate him into a comprehensive and therapeutic rehab program, will have the following goals: 1. Physical Therapy will work with the patient. They are going to work on functional transfer training, ambulation training with a walker. 2. Occupational Therapy will see the patient, work on his activities of daily living including toileting and toilet transfers. 3. ERINN stockings for DVT prophylaxis. Anticoagulation at this point is contraindicated. 4. For his Parkinson's disease, will continue Sinemet 25/100 three times a day. 5. We will continue Flomax and Proscar for now. We will watch his blood pressure closely. 6. We will watch closely for any signs of arrhythmia. 7. Advanced directives: The patient is currently a full code. This may require a followup. His children are his healthcare proxy. 8. Automation And Controls Manager will be closely involved to make sure that any services and equipment the patient requires are in place prior to his return at [facility]. 9. Return to [facility] at an appropriate level. 8. Estimated length of stay is 7 to 10 days. [id number]/[facility] #: [id number] KIM
[2018-01-29 07:17] LABS: ABS Basophils 0.3 10^3/ul (0-0.2); ABS Eosinophils 0.7 10^3/ul (0-0.6); ABS Lymphocytes 1.1 10^3/ul (1.0-4.8); ABS Monocytes 0.8 10^3/ul (0-0.8); ABS Nucleated RBC 0 10^3/ul; Eosinophil % 5.6 % (0-6); Lymphocyte % 9.1 % (25-47); Nucleated Red Blood Cells % 0.1
[2018-01-29 07:36] LABS: EGFR Non-African American 110.1 (>60)
[2018-01-29] MEDS: GLYCERI BOTH EYES SCH ×2 (09:14→20:28)
[2018-01-29] MEDS: CARBOXYMETHYLCELLULOSE LUBRICANT EYE BOTH EYES SCH ×2 (09:14→20:28)
[2018-01-29] MEDS: Docusate CAP* 100 MG PO SCH ×2 (09:16→20:27)
[2018-01-29] MEDS: Carbidopa/Levodop 25/100 MG TAB(*) PO SCH ×3 (09:16→20:24)
[2018-01-29] MEDS: Cholecalciferol TAB* 1000 UNITS PO SCH (09:16)
[2018-01-29] MEDS: Furosemide TAB* 20 MG PO SCH (09:17)
[2018-01-29] MEDS: Spironolactone TAB* 25 MG PO SCH ×2 (09:18→16:55)
[2018-01-29 14:06] LABS: Hematocrit 34 % (42-52); Hemoglobin 11.1 g/dl (14.0-18.0); Mean Corpuscular HGB Conc 33 g/dl (31-36); Mean Corpuscular Hemoglobin 31 pg (27-31); Mean Corpuscular Volume 95 fL (80-94); Mean Platelet Volume 7.8 um3 (7.4-10.4); Platelet Count 612 10^3/ul (150-450); Red Blood Count 3.54 10^6/ul (4.00-5.40); Red Cell Distribution Width 21 % (10.5-15); White Blood Count 12.2 10^3/ul (3.5-10.8)
--- NOTE | 2018-01-29 15:34 | PN ---
Progress Note Date of Service: 01/29/18 Note: AARON ROJAS was visited. Therapy notes read and reviewed. Worked with therapy today and did a pretty good job. Feels like Sinemet is helping his balance and ability to move. WBC slightly high Current Medications: Active Medications Generic Name Dose Route Start Last Admin Trade Name Freq PRN Reason Stop Dose Admin Acetaminophen 650 mg 01/28/18 11:42 Tylenol Tab* PO Q6H PRN FEVER/PAIN Carbidopa/Levodopa 1 tab 01/28/18 14:00 01/29/18 14:28 Sinemet 25/100 Tab(*) PO 1 tab TID EDIN Administration Carboxymethylcellulose/Glycerin 1 applic 01/28/18 21:00 01/29/18 09:14 Refresh Optive Gel Eye Gel BOTH EYES 1 applic BID EDIN Administration Cholecalciferol 2,000 units 01/29/18 09:00 01/29/18 09:16 Vitamin D Tab* PO 2,000 units DAILY EDIN Administration Docusate Sodium 100 mg 01/28/18 21:00 01/29/18 09:16 Colace Cap* PO 100 mg BID EDIN Administration Finasteride 5 mg 01/28/18 21:00 01/28/18 20:10 Proscar Tab* PO 5 mg 2100 EDIN Administration Furosemide 10 mg 01/29/18 09:00 01/29/18 09:17 Lasix Tab* PO 10 mg DAILY EDIN Administration Senna 2 tab 01/28/18 11:42 Senokot Tab* PO BEDTIME PRN CONSTIPATION Spironolactone 25 mg 01/28/18 17:00 01/29/18 09:18 Aldactone Tab* PO 25 mg 0900,1700 EDIN Administration Tamsulosin HCl 0.4 mg 01/29/18 21:00 Flomax Cap* PO MOWEFR@2100 EDIN Vital Signs: Vital Signs Temp Pulse Resp BP Pulse Ox 98.0 F 52 16 105/51 98 01/29/18 06:40 01/29/18 06:40 01/29/18 06:40 01/29/18 06:40 01/29/18 06:40 Lab Results: Laboratory Results - last 24 hr 01/29/18 01/29/18 07:01 07:01 WBC 12.2 H RBC 3.54 L Hgb 11.1 L Hct 34 L MCV 95 H MCH 31 MCHC 33 RDW 21 H Plt Count 612 H D MPV 7.8 Neut % (Auto) 76.4 Lymph % (Auto) 9.1 L [place] % (Auto) 6.5 Eos % (Auto) 5.6 Baso % (Auto) 2.4 H Absolute Neuts (auto) 9.0 H Absolute Lymphs (auto) 1.1 Absolute Monos (auto) 0.8 Absolute Eos (auto) 0.7 H Absolute Basos (auto) 0.3 H Absolute Nucleated RBC 0 Nucleated RBC % 0.1 Sodium 140 Potassium 4.2 Chloride 107 Carbon Dioxide 26 Anion Gap 7 BUN 13 Creatinine 0.68 Est GFR ( Amer) 133.2 Est GFR (Non-Af Amer) 110.1 BUN/Creatinine Ratio 19.1 Glucose 93 Calcium 9.1 Total Bilirubin 1.00 AST 17 ALT 8 Alkaline Phosphatase 158 H Total Protein 6.3 L Albumin 3.6 Globulin 2.7 Albumin/Globulin Ratio 1.3 Exam: HEENT: EOMI LUNGS: Clear bilaterally HEART: Irregular rhythm ABDOMEN: Soft, +BS EXTREMITIES: Increased tone NEUROLOGIC: alert, oriente. Muscle strength about 4+/5 Assessment/Plan: 1. Parkinson's Disease: Continue Sinemet, 25/100 TID. Tolerating 2. SAH: Holding Coumadin/anticoagulation 3. DVT Prophylaxis: TEDs. Chemical prophylaxis contraindicated 4. Atrial FIbrillation: Coumadin on hold 5. BPH: Flomax/Proscar 6. CHF: Aldactone/Lasix 7. Cardiomyopathy: Can try low dose beta flor/RUDOLPH-I if BP tolerates 01/29/18 15:33
[2018-01-29] MEDS: Finasteride TAB* 5 MG PO SCH (20:25)
[2018-01-29] MEDS: Tamsulosin CAP* 0.4 MG PO SCH (20:26)
[2018-01-30] MEDS: Docusate CAP* 100 MG PO SCH ×2 (08:20→20:18)
[2018-01-30] MEDS: Cholecalciferol TAB* 1000 UNITS PO SCH (08:20)
[2018-01-30] MEDS: Carbidopa/Levodop 25/100 MG TAB(*) PO SCH ×3 (08:20→20:18)
[2018-01-30] MEDS: Furosemide TAB* 20 MG PO SCH (08:21)
[2018-01-30] MEDS: GLYCERI BOTH EYES SCH ×2 (08:21→20:17)
[2018-01-30] MEDS: CARBOXYMETHYLCELLULOSE LUBRICANT EYE BOTH EYES SCH ×2 (08:21→20:17)
[2018-01-30] MEDS: Spironolactone TAB* 25 MG PO SCH ×2 (08:21→17:11)
[2018-01-30] MEDS: Gentamicin 0.3% OPTH.OINT* 3.5 GM TUBE RIGHT EYE SCH ×2 (16:57→17:37)
--- NOTE | 2018-01-30 17:11 | PN ---
Progress Note Date of Service: 01/30/18 Note: AARON ROJAS was visited. Therapy notes read and reviewed. He believes the Sinemet has really helped. He also discussed his situation with his children. He wishes to be DNR. A MOLST was filled out. BP too low to consider RUDOLPH or beta flor Current Medications: Active Medications Generic Name Dose Route Start Last Admin Trade Name Freq PRN Reason Stop Dose Admin Acetaminophen 650 mg 01/28/18 11:42 Tylenol Tab* PO Q6H PRN FEVER/PAIN Carbidopa/Levodopa 1 tab 01/28/18 14:00 01/30/18 14:36 Sinemet 25/100 Tab(*) PO 1 tab TID EDIN Administration Carboxymethylcellulose/Glycerin 1 applic 01/28/18 21:00 01/30/18 08:21 Refresh Optive Gel Eye Gel BOTH EYES 1 applic BID EDIN Administration Cholecalciferol 2,000 units 01/29/18 09:00 01/30/18 08:20 Vitamin D Tab* PO 2,000 units DAILY EDIN Administration Docusate Sodium 100 mg 01/28/18 21:00 01/30/18 08:20 Colace Cap* PO 100 mg BID EDIN Administration Finasteride 5 mg 01/28/18 21:00 01/29/18 20:25 Proscar Tab* PO 5 mg 2100 EDIN Administration Furosemide 10 mg 01/29/18 09:00 01/30/18 08:21 Lasix Tab* PO 10 mg DAILY EDIN Administration Gentamicin Sulfate 1 applic 01/30/18 13:00 01/30/18 16:57 Gentamicin 0.3% Opth.Oint* RIGHT EYE Not Given Q4H EDIN Senna 2 tab 01/28/18 11:42 Senokot Tab* PO BEDTIME PRN CONSTIPATION Spironolactone 25 mg 01/28/18 17:00 01/30/18 08:21 Aldactone Tab* PO 25 mg 0900,1700 EDIN Administration Tamsulosin HCl 0.4 mg 01/29/18 21:00 01/29/18 20:26 Flomax Cap* PO 0.4 mg MOWEFR@2100 EDIN Administration Vital Signs: Vital Signs Temp Pulse Resp BP Pulse Ox 98.1 F 53 15 107/44 98 01/30/18 16:03 01/30/18 16:03 01/30/18 16:03 01/30/18 16:03 01/30/18 16:03 Exam: HEENT: EOMI. Right eye injected at lower lid LUNGS: Clear bilaterally HEART: Irregular rhythm ABDOMEN: Soft, +BS EXTREMITIES: Increased tone. No edema NEUROLOGIC: alert, oriente. Muscle strength about 4+/5 Assessment/Plan: 1. Parkinson's Disease: Continue Sinemet, 25/100 TID. Tolerating 2. SAH: Holding Coumadin/anticoagulation 3. DVT Prophylaxis: TEDs. Chemical prophylaxis contraindicated 4. Atrial Fibrillation: Coumadin on hold 5. BPH: Flomax/Proscar 6. CHF: Aldactone/Lasix 7. Cardiomyopathy: Can try low dose beta flor/RUDOLPH-I if BP tolerates which at present it does not 8. Dysphagia: [place] thick liquids, free water between meals. 9. Right eye conjuctivitis: tobramycin ointment BID 01/30/18 17:12
[2018-01-30] MEDS: Senna TAB PO PRN (20:18)
[2018-01-30] MEDS: Finasteride TAB* 5 MG PO SCH (20:19)
[2018-01-30] MEDS ORDERED: Tobramycin 0.3% OPHTH.OINT* 3.5 GM TUBE (OPTH OINTMENT) RIGHT EYE SCH (21:00)
[2018-01-30] MEDS: Tobramycin 0.3% OPHTH.OINT* 3.5 GM TUBE (OPTH OINTMENT) LEFT EYE SCH (21:03)
[2018-01-31] MEDS: Cholecalciferol TAB* 1000 UNITS PO SCH (08:59)
[2018-01-31] MEDS: Spironolactone TAB* 25 MG PO SCH ×2 (08:59→17:24)
[2018-01-31] MEDS: Carbidopa/Levodop 25/100 MG TAB(*) PO SCH ×3 (09:00→20:15)
[2018-01-31] MEDS: Furosemide TAB* 20 MG PO SCH (09:00)
[2018-01-31] MEDS: Docusate CAP* 100 MG PO SCH ×2 (09:00→20:15)
[2018-01-31] MEDS: CARBOXYMETHYLCELLULOSE LUBRICANT EYE BOTH EYES SCH ×2 (09:04→20:16)
[2018-01-31] MEDS: Tobramycin 0.3% OPHTH.OINT* 3.5 GM TUBE (OPTH OINTMENT) LEFT EYE SCH ×2 (09:04→20:15)
[2018-01-31] MEDS: GLYCERI BOTH EYES SCH ×2 (09:04→20:16)
--- NOTE | 2018-01-31 15:37 | PN ---
Progress Note Date of Service: 01/31/18 Note: AARON ROJAS was visited. Therapy notes read and reviewed. Left eye looks much better today. He is tolerating SInemet. Swallowing a problem for some pills Current Medications: Active Medications Generic Name Dose Route Start Last Admin Trade Name Freq PRN Reason Stop Dose Admin Acetaminophen 650 mg 01/28/18 11:42 Tylenol Tab* PO Q6H PRN FEVER/PAIN Carbidopa/Levodopa 1 tab 01/28/18 14:00 01/31/18 14:15 Sinemet 25/100 Tab(*) PO 1 tab TID EDIN Administration Carboxymethylcellulose/Glycerin 1 applic 01/28/18 21:00 01/31/18 09:04 Refresh Optive Gel Eye Gel BOTH EYES 1 applic BID EDIN Administration Cholecalciferol 2,000 units 01/29/18 09:00 01/31/18 08:59 Vitamin D Tab* PO 2,000 units DAILY EDIN Administration Docusate Sodium 100 mg 01/28/18 21:00 01/31/18 09:00 Colace Cap* PO 100 mg BID EDIN Administration Finasteride 5 mg 01/28/18 21:00 01/30/18 20:19 Proscar Tab* PO 5 mg 2100 EDIN Administration Furosemide 10 mg 01/29/18 09:00 01/31/18 09:00 Lasix Tab* PO 10 mg DAILY EDIN Administration Senna 2 tab 01/28/18 11:42 01/30/18 20:18 Senokot Tab* PO 2 tab BEDTIME PRN Administration CONSTIPATION Spironolactone 25 mg 01/28/18 17:00 01/31/18 08:59 Aldactone Tab* PO 25 mg 0900,1700 EDIN Administration Tamsulosin HCl 0.4 mg 01/29/18 21:00 01/29/18 20:26 Flomax Cap* PO 0.4 mg MOWEFR@2100 EDIN Administration Tobramycin Sulfate 1 applic 01/30/18 21:00 01/31/18 09:04 Tobrex 0.3% Ophth.Oint* LEFT EYE 1 applic BID EDIN Administration Vital Signs: Vital Signs Temp Pulse Resp BP Pulse Ox 98.4 F 42 18 92/56 99 01/31/18 15:23 01/31/18 15:23 01/31/18 15:23 01/31/18 15:34 01/31/18 15:23 Exam: HEENT: EOMI. Left eye injected at lower lid, clearing from yesterday LUNGS: Clear bilaterally HEART: Irregular rhythm ABDOMEN: Soft, +BS EXTREMITIES: Increased tone. No edema NEUROLOGIC: alert, oriente. Muscle strength about 4+/5 Assessment/Plan: 1. Parkinson's Disease: Continue Sinemet, 25/100 TID. Tolerating 2. SAH: Holding Coumadin/anticoagulation 3. DVT Prophylaxis: TEDs. Chemical prophylaxis contraindicated 4. Atrial Fibrillation: Coumadin on hold 5. BPH: Flomax/Proscar 6. CHF: Aldactone/Lasix. May cut back Lasix to Q48H if BP low 7. Cardiomyopathy: Can try low dose beta flor/RUDOLPH-I if BP tolerates, which at present, it does not 8. Dysphagia: [place] thick liquids, free water between meals. 9. Left eye conjuctivitis: tobramycin ointment BID 01/31/18 15:37 01/31/18 15:38
[2018-01-31] MEDS: Tamsulosin CAP* 0.4 MG PO SCH (20:15)
[2018-01-31] MEDS: Finasteride TAB* 5 MG PO SCH (20:15)
[2018-02-01] MEDS: Carbidopa/Levodop 25/100 MG TAB(*) PO SCH ×3 (09:35→21:05)
[2018-02-01] MEDS: GLYCERI BOTH EYES SCH ×2 (09:36→21:37)
[2018-02-01] MEDS: Docusate CAP* 100 MG PO SCH ×2 (09:36→20:22)
[2018-02-01] MEDS: Furosemide TAB* 20 MG PO SCH (09:36)
[2018-02-01] MEDS: CARBOXYMETHYLCELLULOSE LUBRICANT EYE BOTH EYES SCH ×2 (09:36→21:37)
[2018-02-01] MEDS: Cholecalciferol TAB* 1000 UNITS PO SCH (09:36)
[2018-02-01] MEDS: Spironolactone TAB* 25 MG PO SCH ×2 (09:37→16:59)
[2018-02-01] MEDS: Tobramycin 0.3% OPHTH.OINT* 3.5 GM TUBE (OPTH OINTMENT) LEFT EYE SCH ×2 (09:37→20:23)
--- NOTE | 2018-02-01 15:18 | PN ---
Progress Note Date of Service: 02/01/18 Note: AARON ROJAS was visited. Therapy notes read and reviewed. BP was low last night and better today. HR remains irregular. Left eye looks much better Current Medications: Active Medications Generic Name Dose Route Start Last Admin Trade Name Freq PRN Reason Stop Dose Admin Acetaminophen 650 mg 01/28/18 11:42 Tylenol Tab* PO Q6H PRN FEVER/PAIN Carbidopa/Levodopa 1 tab 01/28/18 14:00 02/01/18 14:27 Sinemet 25/100 Tab(*) PO 1 tab TID EDIN Administration Carboxymethylcellulose/Glycerin 1 applic 01/28/18 21:00 02/01/18 09:36 Refresh Optive Gel Eye Gel BOTH EYES 1 applic BID EDIN Administration Cholecalciferol 2,000 units 01/29/18 09:00 02/01/18 09:36 Vitamin D Tab* PO 2,000 units DAILY EDIN Administration Docusate Sodium 100 mg 01/28/18 21:00 02/01/18 09:36 Colace Cap* PO 100 mg BID EDIN Administration Finasteride 5 mg 01/28/18 21:00 01/31/18 20:15 Proscar Tab* PO 5 mg 2100 EDIN Administration Furosemide 10 mg 01/29/18 09:00 02/01/18 09:36 Lasix Tab* PO 10 mg DAILY EDIN Administration Senna 2 tab 01/28/18 11:42 01/30/18 20:18 Senokot Tab* PO 2 tab BEDTIME PRN Administration CONSTIPATION Spironolactone 25 mg 01/31/18 15:52 02/01/18 09:37 Aldactone Tab* PO 25 mg 0900,1700 EDIN Administration Tamsulosin HCl 0.4 mg 01/29/18 21:00 01/31/18 20:15 Flomax Cap* PO 0.4 mg MOWEFR@2100 EDIN Administration Tobramycin Sulfate 1 applic 01/30/18 21:00 02/01/18 09:37 Tobrex 0.3% Ophth.Oint* LEFT EYE 1 applic BID EDIN Administration Vital Signs: Vital Signs Temp Pulse Resp BP Pulse Ox 97.3 F 100 16 122/74 97 02/01/18 06:15 02/01/18 06:30 02/01/18 06:15 02/01/18 06:30 02/01/18 06:15 Exam: HEENT: EOMI. Left eye looks better LUNGS: Clear bilaterally HEART: Irregular rhythm ABDOMEN: Soft, +BS EXTREMITIES: Increased tone. No edema NEUROLOGIC: alert, oriented. Muscle strength about 4+/5 Assessment/Plan: 1. Parkinson's Disease: Continue Sinemet, 25/100 TID. Tolerating 2. SAH: Holding Coumadin/anticoagulation 3. DVT Prophylaxis: TEDs. Chemical prophylaxis contraindicated 4. Atrial Fibrillation: Coumadin on hold. Beta flor if BP tolerates 5. BPH: Flomax/Proscar 6. CHF: Aldactone/Lasix. May cut back Lasix to Q48H if BP low 7. Cardiomyopathy: Can try low dose beta flor/RUDOLPH-I if BP tolerates, which at present, it does not 8. Dysphagia: [place] thick liquids, free water between meals. 9. Left eye conjuctivitis: tobramycin ointment BID 02/01/18 15:19
[2018-02-01] MEDS: Senna TAB PO PRN (20:22)
[2018-02-01] MEDS: Finasteride TAB* 5 MG PO SCH (21:10)
[2018-02-02] MEDS: Furosemide TAB* 20 MG PO SCH (07:54)
[2018-02-02] MEDS: Cholecalciferol TAB* 1000 UNITS PO SCH (07:55)
[2018-02-02] MEDS: Spironolactone TAB* 25 MG PO SCH ×2 (07:55→17:36)
[2018-02-02] MEDS: Docusate CAP* 100 MG PO SCH ×2 (07:55→20:21)
[2018-02-02] MEDS: Carbidopa/Levodop 25/100 MG TAB(*) PO SCH ×3 (08:58→20:22)
[2018-02-02] MEDS: Tobramycin 0.3% OPHTH.OINT* 3.5 GM TUBE (OPTH OINTMENT) LEFT EYE SCH ×2 (08:58→20:43)
[2018-02-02] MEDS: GLYCERI BOTH EYES SCH ×2 (08:58→20:30)
[2018-02-02] MEDS: CARBOXYMETHYLCELLULOSE LUBRICANT EYE BOTH EYES SCH ×2 (08:58→20:30)
[2018-02-02] MEDS ORDERED: Magnesium Hydroxide LIQ* 30 ML UDC PO PRN (14:03)
[2018-02-02] MEDS ORDERED: Polyethylene Glycol 3350* 17 GM PACKET PO PRN (14:04)
--- NOTE | 2018-02-02 16:09 | PN ---
Progress Note Date of Service: 02/02/18 Note: AARON ROJAS was visited. Therapy notes read and reviewed. He had a slight loss of balance while walking with TWIST TESTER today, and turning. His left eye looks much better Current Medications: Active Medications Generic Name Dose Route Start Last Admin Trade Name Freq PRN Reason Stop Dose Admin Acetaminophen 650 mg 01/28/18 11:42 Tylenol Tab* PO Q6H PRN FEVER/PAIN Carbidopa/Levodopa 1 tab 01/28/18 14:00 02/02/18 13:56 Sinemet 25/100 Tab(*) PO 1 tab TID EDIN Administration Carboxymethylcellulose/Glycerin 1 applic 01/28/18 21:00 02/02/18 08:58 Refresh Optive Gel Eye Gel BOTH EYES 1 applic BID EDIN Administration Cholecalciferol 2,000 units 01/29/18 09:00 02/02/18 07:55 Vitamin D Tab* PO 2,000 units DAILY EDIN Administration Docusate Sodium 100 mg 01/28/18 21:00 02/02/18 07:55 Colace Cap* PO 100 mg BID EDIN Administration Finasteride 5 mg 01/28/18 21:00 02/01/18 21:10 Proscar Tab* PO 5 mg 2100 EDIN Administration Furosemide 10 mg 01/29/18 09:00 02/02/18 07:54 Lasix Tab* PO 10 mg DAILY EDIN Administration Magnesium Hydroxide 30 ml 02/02/18 14:03 Milk Of Magnesia Liq* PO Q6H PRN CONSTIPATION Polyethylene Glycol/Electrolytes 17 gm 02/02/18 14:04 Miralax* PO DAILY PRN CONSTIPATION Senna 2 tab 01/28/18 11:42 02/01/18 20:22 Senokot Tab* PO 2 tab BEDTIME PRN Administration CONSTIPATION Spironolactone 25 mg 01/31/18 15:52 02/02/18 07:55 Aldactone Tab* PO 25 mg 0900,1700 EDIN Administration Tamsulosin HCl 0.4 mg 01/29/18 21:00 01/31/18 20:15 Flomax Cap* PO 0.4 mg MOWEFR@2100 EDIN Administration Tobramycin Sulfate 1 applic 01/30/18 21:00 02/02/18 08:58 Tobrex 0.3% Ophth.Oint* LEFT EYE 1 applic BID EDIN Administration Vital Signs: Vital Signs Temp Pulse Resp BP Pulse Ox 98.2 F 88 16 110/70 98 02/02/18 05:16 02/02/18 05:16 02/01/18 20:00 02/02/18 06:04 02/02/18 08:00 Exam: HEENT: EOMI. Left eye looks better LUNGS: Clear bilaterally HEART: Irregular rhythm ABDOMEN: Soft, +BS EXTREMITIES: Increased tone. No edema NEUROLOGIC: alert, oriented. Muscle strength about 4+/5 Assessment/Plan: 1. Parkinson's Disease: Continue Sinemet, 25/100 TID. Tolerating 2. SAH: Holding Coumadin/anticoagulation 3. DVT Prophylaxis: TEDs. Chemical prophylaxis contraindicated 4. Atrial Fibrillation: Coumadin on hold. Beta flor if BP tolerates 5. BPH: Flomax/Proscar 6. CHF: Aldactone/Lasix. May cut back Lasix to Q48H if BP low 7. Cardiomyopathy: Can try low dose beta flor/RUDOLPH-I if BP tolerates, which at present, it does not 8. Dysphagia: [place] thick liquids, free water between meals. 9. Left eye conjuctivitis: tobramycin ointment BID, will stop after Saturday02/02/18 16:09
[2018-02-02] MEDS: Senna TAB PO PRN (20:21)
[2018-02-02] MEDS: Finasteride TAB* 5 MG PO SCH (20:22)
[2018-02-03] MEDS: CARBOXYMETHYLCELLULOSE LUBRICANT EYE BOTH EYES SCH ×2 (09:08→21:04)
[2018-02-03] MEDS: GLYCERI BOTH EYES SCH ×2 (09:08→21:04)
[2018-02-03] MEDS: Carbidopa/Levodop 25/100 MG TAB(*) PO SCH ×3 (09:08→21:06)
[2018-02-03] MEDS: Cholecalciferol TAB* 1000 UNITS PO SCH (09:09)
[2018-02-03] MEDS: Spironolactone TAB* 25 MG PO SCH ×2 (09:09→17:19)
[2018-02-03] MEDS: Tobramycin 0.3% OPHTH.OINT* 3.5 GM TUBE (OPTH OINTMENT) LEFT EYE SCH ×2 (09:09→21:05)
[2018-02-03] MEDS: Docusate CAP* 100 MG PO SCH ×2 (09:09→21:59)
[2018-02-03] MEDS: Furosemide TAB* 20 MG PO SCH (09:09)
--- NOTE | 2018-02-03 15:11 | RAD ---
INDICATION: Dysphagia with symptoms of aspiration. COMPARISON: There are no relevant prior studies available for comparison. Technique: A swallowing function test was performed in conjunction with the speech pathologist. The patient was fluoroscopically lateral projection while swallowing nectar and honey thick liquids. Approximately 1.3 minutes of intermittent fluoroscopic guidance were used during the exam. Findings: There is prominent pooling of contrast within the vallecula and piriform sinuses with poor clearing. There was aspiration with both the nectar and honey thick liquids. IMPRESSION: SEVERE OROPHARYNGEAL DYSPHAGIA DESCRIBED. CPT II Codes: G9500
--- NOTE | 2018-02-03 17:07 | PN ---
Progress Note Date of Service: 02/03/18 Note: AARON ROJAS was visited. Therapy notes read and reviewed. He had a video swallow today that showed aspiration with nectar thick and pooling with all textures. 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 Will d/w him possibility of feeding tube. Will downgrade liquids to honey thick. Current Medications: Active Medications Generic Name Dose Route Start Last Admin Trade Name Freq PRN Reason Stop Dose Admin Acetaminophen 650 mg 01/28/18 11:42 Tylenol Tab* PO Q6H PRN FEVER/PAIN Carbidopa/Levodopa 1 tab 01/28/18 14:00 02/03/18 09:08 Sinemet 25/100 Tab(*) PO 1 tab TID EDIN Administration Carboxymethylcellulose/Glycerin 1 applic 01/28/18 21:00 02/03/18 09:08 Refresh Optive Gel Eye Gel BOTH EYES 1 applic BID EDIN Administration Cholecalciferol 2,000 units 01/29/18 09:00 02/03/18 09:09 Vitamin D Tab* PO 2,000 units DAILY EDIN Administration Docusate Sodium 100 mg 01/28/18 21:00 02/03/18 09:09 Colace Cap* PO 100 mg BID EDIN Administration Finasteride 5 mg 01/28/18 21:00 02/02/18 20:22 Proscar Tab* PO 5 mg 2100 EDIN Administration Furosemide 10 mg 01/29/18 09:00 02/03/18 09:09 Lasix Tab* PO 10 mg DAILY EDIN Administration Magnesium Hydroxide 30 ml 02/02/18 14:03 Milk Of Magnesia Liq* PO Q6H PRN CONSTIPATION Polyethylene Glycol/Electrolytes 17 gm 02/02/18 14:04 02/02/18 17:41 Miralax* PO 17 gm DAILY PRN Administration CONSTIPATION Senna 2 tab 01/28/18 11:42 02/02/18 20:21 Senokot Tab* PO 2 tab BEDTIME PRN Administration CONSTIPATION Spironolactone 25 mg 01/31/18 15:52 02/03/18 09:09 Aldactone Tab* PO 25 mg 0900,1700 EDIN Administration Tamsulosin HCl 0.4 mg 01/29/18 21:00 01/31/18 20:15 Flomax Cap* PO 0.4 mg MOWEFR@2100 EDIN Administration Tobramycin Sulfate 1 applic 01/30/18 21:00 02/03/18 09:09 Tobrex 0.3% Ophth.Oint* LEFT EYE 02/04/18 23:59 1 applic BID EDIN Administration Vital Signs: Vital Signs Temp Pulse Resp BP Pulse Ox 97.8 F 59 18 104/48 98 02/03/18 05:24 02/03/18 05:24 02/03/18 05:24 02/03/18 05:24 02/03/18 05:24 Exam: HEENT: EOMI. Left eye clear LUNGS: Clear bilaterally HEART: Irregular rhythm ABDOMEN: Soft, +BS EXTREMITIES: Increased tone. No edema NEUROLOGIC: alert, oriented. Muscle strength about 4+/5 Assessment/Plan: 1. Parkinson's Disease: Continue Sinemet, 25/100 TID. Tolerating 2. SAH: Holding Coumadin/anticoagulation 3. DVT Prophylaxis: TEDs. Chemical prophylaxis contraindicated 4. Atrial Fibrillation: Coumadin on hold. Beta flor if BP tolerates 5. BPH: Flomax/Proscar 6. CHF: Aldactone/Lasix. May cut back Lasix to Q48H if BP low 7. Cardiomyopathy: Can try low dose beta flor/RUDOLPH-I if BP tolerates, which at present, it does not 8. Dysphagia: Honey thick liquids, free water between meals. 9. Left eye conjuctivitis: tobramycin ointment BID, will stop after tomorrow 02/03/18 17:07
[2018-02-03] MEDS: Tamsulosin CAP* 0.4 MG PO SCH (22:00)
[2018-02-03] MEDS: Finasteride TAB* 5 MG PO SCH (22:02)
[2018-02-04] MEDS: Carbidopa/Levodop 25/100 MG TAB(*) PO SCH ×3 (09:40→20:55)
[2018-02-04] MEDS: Docusate CAP* 100 MG PO SCH ×3 (09:41→20:18)
[2018-02-04] MEDS: CARBOXYMETHYLCELLULOSE LUBRICANT EYE BOTH EYES SCH ×2 (09:41→20:21)
[2018-02-04] MEDS: GLYCERI BOTH EYES SCH ×2 (09:41→20:21)
[2018-02-04] MEDS: Cholecalciferol TAB* 1000 UNITS PO SCH (09:41)
[2018-02-04] MEDS: Furosemide TAB* 20 MG PO SCH (09:42)
[2018-02-04] MEDS: Spironolactone TAB* 25 MG PO SCH ×2 (09:43→17:46)
[2018-02-04] MEDS: Tobramycin 0.3% OPHTH.OINT* 3.5 GM TUBE (OPTH OINTMENT) LEFT EYE SCH ×2 (09:43→20:22)
--- NOTE | 2018-02-04 12:37 | PMRUTEAM ---
PMRU: Team Meeting Current Status: Nursing: Current Status Skin Deviations [Posterior Bruise Midline Head] Skin Deviation Description [ posterior midline bruise Posterior Midline Head] Bladder Current Status BPH, utilizes depends r/t occasional incontinence Bowel Current Status Last BM 02/03/18 Nutrition Current Status Honey thick liquids, regular diet Medication Current Status meds managed by staff Physical Therapy: Current Status Bed Mobility Assistance Supervision Transfer Moblility Assistance Supervision Transfer/Bed Mobility Rolling Walker Recommended Devices Ambulation Assistance Supervision Ambulation Assistive Devices Rolling Walker Number of Feet Patient 3x180 Ambulated Stairs Assistance Supervision Stairs Recommended Devices Two Rails Number of Stairs 2x5 Objective Comments step over step pattern ascending stairs, step to pattern descending stairs. Occupational Therapy: Current Status Upper Body Dressing Independent Lower Body Dressing Independent Bathing Supervision Toileting Ind with Adaptive Equip Toilet Transfer Ind with Adaptive Equip Shower Transfer Supervision Eating Ind with Adaptive Equip Rec Therapy: Current Status Summary of Assessment and RT assessment complete and pt. is aware of RT Clinical Impression services. Pt. tends to be with visitors or resting in the afternoons but has expressed interest in leisure visits while on the unit. Treatment Goals Pt. will engage in leisure activities while on the unit. Treatment Plan Provide RT services and encourage involvement. Social Work: Current Status Discharge Plan admission to [facility] Potential for Family Training n/a Anticipated Discharge [facility] Facility Destination Discharge With [facility] at [facility] Nutrition: Current Status Monitoring Video fluoroscopy 02/03 indicated severe oropharyngeal dysphagia with both nectar and honey thick liquids. Diet downgraded to honey thick liquids (regular texture) and RUBBER INSULATOR will continue to work with pt for potential strategies. MD plans to consider if tube feeding is appropriate, although advanced age is a consideration. Note pt is eating well of food (75-100%), but fluid intake suboptimal (400-600 ml). Encourage liquid within foods to maximize fluid intake. Follow decisions re plan of care. Speech: Current Status Assessment Patient has continued to demonstrate difficulty swallowing and s/s aspiration or stasis with currently ordered diet consistencies and oral medications. Videofluoroscopic swallow evaluation is indicated to fully assess swallowing function, risk of aspiration, and appropriate treatment. Speech Current Status Goal 1 Mild-moderate impairment Speech Goal 2 Current Status Mild-moderate impairment Goals: Physical Therapy: Initial Goals Bed Mobility Assistance Independent Transfer Mobility Assistance Independent Transfer/Bed Mobility None Recommended Devices Ambulation Independent Ambulation Recommended Devices Rolling Walker,Straight Cane Ambulation Distance 100-400 Home Exercise Program Independent Assistance Physical Therapy: Updated Goals Transfer/Bed Mobility Railings Recommended Devices Occupational Therapy: Initial Goals Goals to be Completed in (Days 7-10 days ) Upper Body Bathing Routine Supervision/Set Up Lower Body Bathing Routine Supervision/Set Up Upper Body Dressing Routine Independent Lower Body Dressing Routine Minimal Contact Assist Toilet Hygeine and Clothing Modified Independent with Management Routine Toilet Transfer Routine Modified Independent with Step-In Shower Transfer Supervision/Set Up Routine Functional Transfers for ADL Modified Independent with Grooming Routine Independent Feeding Routine Independent Light Housekeeping Tasks Modified Independent with Nursing: Goals Bladder Goal maintain baseline Bowel Goal maintain baseline bowel routine Nutrition Goal Continue with honey soft liquids, no aspiration Medication Goal return to baseline medication management Nutrition: Goals Intervention Goals 1. pt will tolerate least-restrictive diet texture and liquid consistency without difficulty swallowing or any s/sx aspiration 2. adequate po intake to maintain stable wt, hydration, and lean body mass 3. maintain regular bowel pattern without c/o constipation (or diarrhea) 4. maintain skin integrity without evidence for breakdown Speech: Goals Speech Goal 1 Swallowing Speech Evaluation Status Goal Mild-moderate impairment 1 Speech Current Status Goal 1 Mild-moderate impairment Goal 1 Comments Long-Term Goal: Patient will I'ly follow precautions to tolerate least restrictive diet consistencies w/ no complications from aspiration. Status: Progressing as expected. Short Term Goals: 1) STG: Patient will demonstrate and follow swallowing exercises and compensatory strategies, to tolerate regular diet consistency and nectar thick liquids, w/ no clinical s/s aspiration, given minimal cueing. Status: Progressing slowly as expected. RUBBER INSULATOR instructed patient to complete his printed directions for safe swallow, and patient completed accurately given moderate cueing faded to independent. Patient demonstrated wet coughing after 4/10 trials of nectar liquid, and throat clearing after 3/6. 2) STG: Patient will demonstrate and follow the precautions for free thin water protocol, given minimal cueing. Status: Progressing as expected Patient required moderate prompting faded to independent, to verbalize and demonstrate precautiuosn for thin water protocol. 3) STC: Patient will I'ly follow precautions and compensatory strategies, to tolerate thin liquids with no clinical s/s or complications from aspiration Status: Not initiated at this time. Speech Goal 2 Swallowing Speech Goal 2 Evaluation Mild-moderate impairment Status Speech Goal 2 Current Status Mild-moderate impairment Speech Goal 2 Comments Long-Term Goal: Patient will independently manage saliva, with minimal need to wipe drool. Short Term Goals: 1) STG: Pt will manage his saliva to avoid drooling, by following compensatory strategies, given minimal cueing. Status: Met No drooling has been observed for three days. Social Work: Goals Discharge Plan admission to [facility] Potential for Family Training n/a Anticipated Discharge [facility] Facility Destination Discharge With [facility] at [facility] Care Plan: Care Plan ADL's - Improve/Maintain Start: 01/28/18 14:29 Freq: DAILY Status: Active Target: Protocol: Activity Type Activity Date Activity User E-Sign Co-Sign Detail Recorded Client Recorded Date Recorded By Document 02/04/18 10:46 [id number] [email or web address] 02/04/18 10:46 [id number] 02/04/18 10:46 PMRU Outcome: ADL's/ADL Transfers Orders/Interventions Occupational Therapy Evaluation & Treatment Device Yes Patient to receive OT 5x/wk for 60-120 Therex min/day Self Care Management Group Therapy Neuromuscular ReEducation UE/LE ADL's with Assist Yes ADL Transfers with Assist Yes Toileting: Transfers,Clothing Management Yes ,Hygeine w/Assist Light Kitchen/Laundry w/Assist Yes Progression Toward Outcome/Goals Progressing Outcome/Goals Met Pt anticipated d/c next date to [facility] assisted living [facility] where he will have supervision for bathing tasks and assistance to don ERINN stockings. Pt completes toileting, functional mobility/ transfers and dressing tasks independnetly. Cardiovascular- Improve/Maintain Start: 01/28/18 11:16 Freq: QSHIFT Status: Active Target: Protocol: Activity Type Activity Date Activity User E-Sign Co-Sign Detail Recorded Client Recorded Date Recorded By Document 02/04/18 07:20 [id number] 02/04/18 10:56 [id number] 02/04/18 07:20 PMRU Outcome: Cardiovascular Vital Signs q Shift for 48hrs Then BID Yes Daily Weight Ordered No Current Cardiovascular Outcome/Goal Maintain/ Achieve Baseline HR, BP , Perfusion Maintain/ Achieve Hemodynamic Stability Progression Toward Outcome/Goal Progressing Communication-Improve/Maintain Start: 01/28/18 16:26 Freq: DAILY Status: Inactive Target: Protocol: Activity Type Activity Date Activity User E-Sign Co-Sign Detail Recorded Client Recorded Date Recorded By Document 02/02/18 22:32 [id number] 02/02/18 22:34 [id number] 02/02/18 22:32 PMRU Outcome: Communication/Cognitive Status Outcome/Goals Makes Needs Known Effectively Other Outcomes/Goals Swallowing ( Consistencies) Long-Term Goal: Patient will tolerate least restrictive diet consistencies w / no clinical s /s aspiration Short Term Goals: 1) STG: Pt will tolerate mechanical ground consistency w/ no clinical s/s aspiration. 2) STG: Pt will tolerate upgrade to nectar thick liquid w/ no clinical s/s aspiration. 3) STG: Pt will tolerate pureed consistency and honey thick liquid w/ no clinical s/s aspiration. Swallowing ( Secretions) Long-Term Goal: Patient will independently manage his saliva, with minimal drooling or need to wipe hs mouth. Short Term Goals: 1) STG: Pt will manage his saliva to avod drooling, by following compensatory strategies, given minimal cueing. Progression Toward Outcomes/Goals Progressing DVT Prophylaxis- Improve/Maintain Start: 01/28/18 11:16 Freq: QSHIFT Status: Active Target: Protocol: Activity Type Activity Date Activity User E-Sign Co-Sign Detail Recorded Client Recorded Date Recorded By Document 02/04/18 07:20 [id number] [email or web address] 02/04/18 10:56 [id number] 02/04/18 07:20 PMRU Outcome: DVT Prophylaxis Outcome/Goals Remains Free of DVT Complies with DVT Prophylaxis /Treatment Demonstrates Knowledge of DVT Prevention/ Treatment TEDS Stockings on Every AM, Off at HS Progression Toward Outcome/Goals Progressing Discharge Planning - Improve/Maintain Start: 01/28/18 11:16 Freq: DAILY Status: Active Target: Protocol: Activity Type Activity Date Activity User E-Sign Co-Sign Detail Recorded Client Recorded Date Recorded By Document 02/04/18 00:43 [id number] [id number] 02/04/18 00:43 [id number] 02/04/18 00:43 PMRU Outcome: Discharge Planning Update Patient Family No Outcome/Goals Demonstrates Understanding of Discharge Plan Progression Toward Outcome/Goals Progressing Education-Improve/Maintain Start: 01/28/18 11:16 Freq: QSHIFT Status: Active Target: Protocol: Activity Type Activity Date Activity User E-Sign Co-Sign Detail Recorded Client Recorded Date Recorded By Document 02/04/18 07:20 [id number] 02/04/18 10:56 [id number] 02/04/18 07:20 PMRU Outcome: Education Outcome/Goals Encourage Questions Progression Toward Outcome/Goals Progressing /GI-Improve/Maintain Start: 01/28/18 11:16 Freq: QSHIFT Status: Active Target: Protocol: Activity Type Activity Date Activity User E-Sign Co-Sign Detail Recorded Client Recorded Date Recorded By Document 02/04/18 07:20 [id number] 02/04/18 10:56 [id number] 02/04/18 07:20 PMRU Outcome: Genitourinary/ Gastrointestinal Genitourinary- Outcome/Goals Remain Free of Hospital- Acquired UTI Gastrointestinal-Outcome/Goals Maintain/ Achieve Bowel Regularity in Accordance with Pt's Baseline Prevent Constipation Laxatives as Ordered Progression Toward Outcome/Goals - Progressing Progression Toward Outcome/Goals - GI Progressing Outcome/Goals Met Comment pt incontinent - up to BR Medication Administration Start: 01/28/18 11:16 Freq: QSHIFT Status: Active Target: Protocol: Activity Type Activity Date Activity User E-Sign Co-Sign Detail Recorded Client Recorded Date Recorded By Document 02/04/18 07:20 [id number] [email or web address] 02/04/18 10:56 [id number] 02/04/18 07:20 PMRU Outcome: Medication Administration Assess Patient Knowledge/Teach Med Yes Education for all Meds Outcome/Goals Patient Independent with Medication Administration at Home Demonstrates Understanding Progression Towards Outcome/Goals Progressing Is Patient Going Home on Lovenox? No Mobility- Improve/Maintain Start: 01/29/18 17:48 Freq: DAILY Status: Active Target: Protocol: Activity Type Activity Date Activity User E-Sign Co-Sign Detail Recorded Client Recorded Date Recorded By Document 02/03/18 16:38 [id number] 02/03/18 16:38 [id number] 02/03/18 16:38 PMRU Outcome: Mobility Physical Therapy Evaluation and Yes Treatment Activity OOB with Assistance Yes WBAT Yes Device Yes Assistance Yes Patient to be seen 5x/wk for 60-120 min/ Therex day for: Mobility Training Gait Training Balance Outcome/Goals Maintain/ Achieve Baseline Mobility Status Improve Mobility Status Demonstrates Proper Use of Assistive Devices Free from Complications of Immobility Progression Toward Outcome/Goals Progressing Outcome/Goals Met Improve Mobility Status Demonstrates Proper Use of Assistive Devices Free from Complications of Immobility Bed Mobility Yes: independent Transfers Yes: independent with rolling walker. Gait x ft Yes: independent with rolling waker 150' Up/Down Stairs Yes: independent up/ down 5 stairs with B rails. Neurological- Improve/Maintain Start: 01/28/18 11:16 Freq: QSHIFT Status: Active Target: Protocol: Activity Type Activity Date Activity User E-Sign Co-Sign Detail Recorded Client Recorded Date Recorded By Document 02/04/18 07:20 [id number] [id number] 02/04/18 10:56 [id number] 02/04/18 07:20 PMRU Outcome: Neurological Weakness/Aphasia Weakness Left Side Weakness/Aphasia Comment newly diagnosed Parkinsons, cva Outcome/Goals Maintain/ Achieve Baseline Neurological Status Improve Neurological Status Prevent Avoidable Neurological Decline Demonstrate Knowledge of Prevention/Tx of Neuro Disorders/ Complication Maintain/ Improve Strength/ROM Progression Toward Outcome/Goals Progressing Respiratory - Improve/Maintain Start: 01/28/18 11:16 Freq: QSHIFT Status: Active Target: Protocol: Activity Type Activity Date Activity User E-Sign Co-Sign Detail Recorded Client Recorded Date Recorded By Document 02/04/18 07:20 [id number] 02/04/18 10:56 [id number] 02/04/18 07:20 PMRU Outcome: Respiratory Does Patient Have a Trach No Outcome/Goals Maintain/ Improve Baseline Respiratory Status Maintain/ Improve Activity Tolerance Prevent Pneumonia/ Atelectasis Progression Toward Outcome/Goals Progressing Safety- Improve/Maintain Start: 01/28/18 11:16 Freq: QSHIFT Status: Active Target: Protocol: Activity Type Activity Date Activity User E-Sign Co-Sign Detail Recorded Client Recorded Date Recorded By Document 02/04/18 07:20 [id number] 02/04/18 10:56 [id number] 02/04/18 07:20 PMRU Outcome: Safety Outcome/Goals Remain Free of Injury or Harm Cooperates with Safety Measures for Least Restrictive Environment Prevent Falls/ Injury Progression Toward Outcome/Goals Progressing Outcome/Goals Met Comment BA armed Skin- Improve/Maintain Start: 01/28/18 11:16 Freq: QSHIFT Status: Active Target: Protocol: Activity Type Activity Date Activity User E-Sign Co-Sign Detail Recorded Client Recorded Date Recorded By Document 02/04/18 07:20 [id number] 02/04/18 10:56 [id number] 02/04/18 07:20 PMRU Outcome: Skin Skin Risk Level Medium Skin Orders Turn/Position q2hr While in Bed Outcome/Goals Maintain/ Improve Skin Intergrity Progression Toward Outcome/Goals Progressing Medicine Note: Length of Stay: 1 day Anticipated Discharge Destination: [facility] Facility Tentative Discharge Date: 02/05/18 Discharged to: SNF
--- NOTE | 2018-02-04 19:18 | PN ---
Progress Note Date of Service: 02/04/18 Note: AARON Ochoa BOB was visited. Therapy notes read and reviewed. he was discussed in interdisciplinary team rounds. He will go to [facility] tomorrow. Tolerating diet Current Medications: Active Medications Generic Name Dose Route Start Last Admin Trade Name Freq PRN Reason Stop Dose Admin Acetaminophen 650 mg 01/28/18 11:42 Tylenol Tab* PO Q6H PRN FEVER/PAIN Carbidopa/Levodopa 1 tab 01/28/18 14:00 02/04/18 14:31 Sinemet 25/100 Tab(*) PO 1 tab TID EDIN Administration Carboxymethylcellulose/Glycerin 1 applic 01/28/18 21:00 02/04/18 09:41 Refresh Optive Gel Eye Gel BOTH EYES 1 applic BID EDIN Administration Cholecalciferol 2,000 units 01/29/18 09:00 02/04/18 09:41 Vitamin D Tab* PO 2,000 units DAILY EDIN Administration Docusate Sodium 100 mg 01/28/18 21:00 02/04/18 10:22 Colace Cap* PO Not Given BID EDIN Finasteride 5 mg 01/28/18 21:00 02/03/18 22:02 Proscar Tab* PO 5 mg 2100 EDIN Administration Furosemide 10 mg 01/29/18 09:00 02/04/18 09:42 Lasix Tab* PO 10 mg DAILY EDIN Administration Magnesium Hydroxide 30 ml 02/02/18 14:03 Milk Of Magnesia Liq* PO Q6H PRN CONSTIPATION Polyethylene Glycol/Electrolytes 17 gm 02/02/18 14:04 02/02/18 17:41 Miralax* PO 17 gm DAILY PRN Administration CONSTIPATION Senna 2 tab 01/28/18 11:42 02/02/18 20:21 Senokot Tab* PO 2 tab BEDTIME PRN Administration CONSTIPATION Spironolactone 25 mg 01/31/18 15:52 02/04/18 17:46 Aldactone Tab* PO 25 mg 0900,1700 EDIN Administration Tamsulosin HCl 0.4 mg 01/29/18 21:00 02/03/18 22:00 Flomax Cap* PO Not Given MOWEFR@2100 EDIN Tobramycin Sulfate 1 applic 01/30/18 21:00 02/04/18 09:43 Tobrex 0.3% Ophth.Oint* LEFT EYE 02/04/18 23:59 1 applic BID EDIN Administration Vital Signs: Vital Signs Temp Pulse Resp BP Pulse Ox 98.4 F 91 18 104/57 99 02/04/18 15:22 02/04/18 15:22 02/04/18 15:22 02/04/18 15:22 02/04/18 18:58 Exam: HEENT: EOMI. Left eye clear LUNGS: Clear bilaterally HEART: Irregular rhythm ABDOMEN: Soft, +BS EXTREMITIES: Increased tone. No edema NEUROLOGIC: alert, oriented. Muscle strength about 4+/5 Assessment/Plan: 1. Parkinson's Disease: Continue Sinemet, 25/100 TID. Tolerating 2. SAH: Holding Coumadin/anticoagulation 3. DVT Prophylaxis: TEDs. Chemical prophylaxis contraindicated 4. Atrial Fibrillation: Coumadin on hold. Beta flor if BP tolerates 5. BPH: Flomax/Proscar 6. CHF: Aldactone/Lasix. May cut back Lasix to Q48H if BP low 7. Cardiomyopathy: Can try low dose beta flor/RUDOLPH-I if BP tolerates, which at present, it does not 8. Dysphagia: Honey thick liquids, free water between meals. 9. Left eye conjuctivitis: tobramycin ointment BID, will stop 02/04/18 19:18
[2018-02-04] MEDS: Finasteride TAB* 5 MG PO SCH (20:16)
[2018-02-05 06:43] VITALS: BP 125/46
[2018-02-05 07:10] LABS: Hematocrit 35 % (42-52); Hemoglobin 11.8 g/dl (14.0-18.0); Mean Corpuscular HGB Conc 34 g/dl (31-36); Mean Corpuscular Hemoglobin 32 pg (27-31); Mean Corpuscular Volume 94 fL (80-94); Mean Platelet Volume 7.5 um3 (7.4-10.4); Platelet Count 640 10^3/ul (150-450); Red Blood Count 3.71 10^6/ul (4.00-5.40); Red Cell Distribution Width 21 % (10.5-15); White Blood Count 9.5 10^3/ul (3.5-10.8)
[2018-02-05 07:35] LABS: EGFR Non-African American 98.3 (>60)
[2018-02-05 07:40] LABS: ABS Basophils 0.3 10^3/ul (0-0.2); ABS Eosinophils 0.6 10^3/ul (0-0.6); ABS Lymphocytes 1.3 10^3/ul (1.0-4.8); ABS Monocytes 0.8 10^3/ul (0-0.8); ABS Neutrophils 6.5 10^3/ul (1.5-7.7); ABS Nucleated RBC 0 10^3/ul; Eosinophil % 6.8 % (0-6); Lymphocyte % 13.2 % (25-47); Nucleated Red Blood Cells % 0.2
[2018-02-05] MEDS: Docusate CAP* 100 MG PO SCH (10:14)
[2018-02-05] MEDS: Carbidopa/Levodop 25/100 MG TAB(*) PO SCH (10:21)
[2018-02-05] MEDS: Cholecalciferol TAB* 1000 UNITS PO SCH (10:24)
[2018-02-05] MEDS: GLYCERI BOTH EYES SCH (10:24)
[2018-02-05] MEDS: CARBOXYMETHYLCELLULOSE LUBRICANT EYE BOTH EYES SCH (10:24)
[2018-02-05] MEDS: Spironolactone TAB* 25 MG PO SCH (10:29)
[2018-02-05] MEDS: Furosemide TAB* 20 MG PO SCH (10:30)
--- NOTE | 2018-02-06 12:10 | TRS ---
CC: [facility]; Brina Sánchez MD * TRANSFER SUMMARY: DATE OF ADMISSION: 01/28/18 DATE OF DISCHARGE: 02/05/18 The patient is being transferred to [facility] at [facility]. DISCHARGE DIAGNOSES: 1. Left subarachnoid hemorrhage. 2. Parkinson disease. 3. Benign prostatic hypertrophy. 4. Congestive heart failure. 5. Atrial fibrillation. 6. Aortic stenosis. 7. Conjunctivitis, left eye. HISTORY OF PRESENT ILLNESS AND HOSPITAL COURSE: For complete history of the events leading up to his rehab stay, please see the history and physical dictated by me on 01/28/18. While on the rehab unit, the patient did develop conjunctivitis in his left eye and was started on tobramycin ophthalmic ointment. The conjunctivitis subsequently cleared up. He was diuresed with Aldactone as well as Lasix while on the rehab unit. His weight stayed in the 129 to 130 pounds area. It appeared to be stable. The patient had difficulty swallowing while on the rehab unit. He was seen by Speech Therapy. A video fluoroscopy swallow study was done on 02/03/18. His liquids were downgraded from nectar thickened to honey thickened. The patient's anticoagulation was not restarted while on the rehab unit. The patient was seen by Physical Therapy , Speech Therapy, and Occupational Therapy while on the rehab unit. He made good gains with all disciplines. With physical therapy at the time of admission , the patient required contact guard to do a transfer, contact guard to ambulate 200 feet. With occupational therapy at the time of admission, the patient was mod assist for lower body dressing, min assist for toileting, contact guard for toilet transfers. Posterior lean was noted with all therapies. By the time of discharge, the patient was transferring independently and ambulating independently. With distances over 150 feet, he required supervision for ambulation. With occupational therapy at the time of discharge , the patient was supervision for feeding to ensure liquids were honey thick, supervision for bathing, independent for dressing, independent for toileting. With speech therapy by the time of discharge, the patient was on honey thickened liquids and a soft diet. He had moderate oropharyngeal dysphagia noted. He had thin and nectar thick liquids spill into his airway and were aspirating on video swallow. He also had pooling noted in the pharynx on video swallow. He had mild impairment of short- term memory noted with speech therapy. Because of the patient's dietary restrictions, he is going to be discharged to the [facility] at [facility]. Further work with speech therapy and occupational therapy and physical therapy can happen there. With regards to his anticoagulation, he was anticoagulated in the past, but his anticoagulation was held after he hit his head and had the subarachnoid hemorrhage. He has not been on anticoagulation since 01/18/18. A decision when to restart his anticoagulation will be decided by his primary care doctor, Dr. Sánchez. DISCHARGE DIET: Soft with honey thickened liquids. DISCHARGE MEDICATIONS: Included: 1. Sinemet 25/100 1 tablet orally 3 times a day. 2. Vitamin D 2000 units daily. 3. Proscar 5 mg at 9 p.m. 4. Flomax 0.4 mg daily. 5. Lasix 10 mg daily. 6. Spironolactone 25 mg at 9 a.m. and 5 p.m. 7. Senna 2 tablets at bedtime as needed. SERVICES AFTER DISCHARGE: He will have restorative physical therapy, speech therapy, and occupational therapy. Follow up with his primary care doctor, Dr. Brina Sánchez. [id number]/[facility] #: [id number] MTDD
== END 2018-02-05 11:00 | DRG 945 ==
LOC: PMRU 10:41
PROVIDERS: ADMIT Physical Medicine & Rehabilitation; ATTEND Physical Medicine & Rehabilitation
PROC: F07Z5ZZ Bed Mobility Treatment (ICD-10-PCS; principal; 2018-01-28)
PROC: F07Z9ZZ Gait Training/Functional Ambulation Treatment (ICD-10-PCS; 2018-01-28)
PROC: F07Z8ZZ Transfer Training Treatment (ICD-10-PCS; 2018-01-28)
PROC: F08Z0ZZ Bathing/Showering Techniques Treatment (ICD-10-PCS; 2018-01-28)
PROC: F08Z1ZZ Dressing Techniques Treatment (ICD-10-PCS; 2018-01-28)
PROC: F08Z3ZZ Feeding/Eating Treatment (ICD-10-PCS; 2018-01-28)
PROC: F06ZDZZ Swallowing Dysfunction Treatment (ICD-10-PCS; 2018-01-28)
DX: S06.6X0D Traumatic subarachnoid hemorrhage without loss of consciousness, subsequent encounter (principal); I47.2 Ventricular tachycardia; I42.9 Cardiomyopathy, unspecified; G20 Parkinson's disease; I11.0 Hypertensive heart disease with heart failure; I50.9 Heart failure, unspecified; R13.10 Dysphagia, unspecified; I48.91 Unspecified atrial fibrillation; I35.0 Nonrheumatic aortic (valve) stenosis; F06.8 Other specified mental disorders due to known physiological condition; H10.9 Unspecified conjunctivitis; Z66 Do not resuscitate; E55.9 Vitamin D deficiency, unspecified; N40.0 Benign prostatic hyperplasia without lower urinary tract symptoms; W18.30XD Fall on same level, unspecified, subsequent encounter; Z79.01 Long term (current) use of anticoagulants; Z79.1 Long term (current) use of non-steroidal anti-inflammatories (NSAID); Z79.899 Other long term (current) drug therapy
CPT/HCPCS: 36415; 74230; 80053; 85025; A9270-GY

== ENCOUNTER 2018-05-23 01:27 | Emergency (ER) | payer MEDICARE, OTHER, BC ==
--- NOTE | 2018-05-23 02:10 | ED ---
Skin Complaint - HPI Summary HPI Summary: This patient is a 88 year old male brought in by EMS with a cc of uncontrolled bleeding of the left forearm. The patient states he was at the dermatologists yesterday and had a spot removed from his arm and repaired with sutures. 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 On exam there is no active bleeding. The patient has no other complaints at this time. - History of Current Complaint Time Seen by Provider: 05/23/18 01:43 Stated Complaint: HEMORRHAGING Hx Obtained From: Patient Onset/Duration: Started Hours Ago, Still Present Timing: Constant Onset Severity: Mild Current Severity: Mild Pain Intensity: 0 Pain Scale Used: 0-10 Numeric Skin Location: Arm Associated Signs & Symptoms: Negative - fever - Additional Pertinent History Primary Care Physician: MAKENZIE - Allergy/Home Medications Allergies/Adverse Reactions: Allergies Allergy/AdvReac Type Severity Reaction Status Date / Time No Known Allergies Allergy Verified 02/06/17 19:05 PMH/Surg Hx/FS Hx/Imm Hx Endocrine/Hematology History: Denies: Hx Diabetes, Hx Thyroid Disease Cardiovascular History: Reports: Hx Coronary Artery Disease, Hx Hypercholesterolemia, Hx Hypertension, Other Cardiovascular Problems/Disorders - cardiomyopathy, CABGx4 Denies: Hx Congestive Heart Failure, Hx Deep Vein Thrombosis, Hx Myocardial Infarction, Hx Pacemaker/ICD Respiratory History: Reports: Other Respiratory Problems/Disorders - pneumonia Denies: Hx Asthma, Hx Chronic Obstructive Pulmonary Disease (COPD), Hx Lung Cancer, Hx Pneumonia, Hx Pulmonary Embolism GI History: Reports: Hx Gall Bladder Disease - gallbladder stones, Other GI Disorders - Pt reports "calcium lump" in throat Denies: Hx Gastrointestinal Bleed, Hx Ulcer, Hx Urosepsis History: Reports: Hx Benign Prostatic Hyperplasia, Hx Kidney Stones, Other Problems/Disorders - ENLARGE PROSTATE Denies: Hx Renal Disease Musculoskeletal History: Reports: Hx Arthritis - RIGHT WRIST, Hx Rheumatoid Arthritis - MORE ON THE RIGHT WRIST THAN THE LEFT, Hx Gout Sensory History: Reports: Hx Contacts or Glasses, Hx Hearing Aid Opthamlomology History: Reports: Hx Contacts or Glasses Neurological History: Denies: Hx Dementia, Hx Migraine, Hx Seizures, Hx Transient Ischemic Attacks (TIA) Psychiatric History: Reports: Hx Depression - He states that he is a bit depressed, but not on medications. 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 tonsil. lasik surgery Hx Anesthesia Reactions: No Infectious Disease History: Reports: Hx Shingles, History Other Infectious Disease - Lyme's Disease Denies: Traveled Outside the [place] in Last 30 Days - Family History Known Family History: Positive: Cardiac Disease - parenst, Hypertension - parents Negative: Renal Disease, Blood Disorder - Social History Alcohol Use: Daily Alcohol Amount: 3 oz Substance Use Type: Reports: None Hx Tobacco Use: Yes Smoking Status (MU): Former Smoker Amount Used/How Often: 1/2 PPD Length of Time of Smoking/Using Tobacco: 11 YEARS Have You Smoked in the Last Year: No Review of Systems Negative: Fever Positive: Other - repaired abrasion Negative: Slurred Speech All Other Systems Reviewed And Are Negative: Yes Physical Exam - Summary Physical Exam Summary: Appearance: Well appearing, no pain distress Skin: Abrasion over the left forearm. Wound with sutures present no active bleeding. Head/face: normal Eyes: EOMI, DILLON ENT: normal Neck: supple, non-tender Respiratory: CTA, breath sounds present Cardiovascular: RRR, pulses symmetrical Abdomen: non-tender, soft Musculoskeletal: normal, strength/ROM intact Neuro: normal, sensory motor intact, A&Ox3 Triage Information Reviewed: Yes Vital Signs Reviewed: Yes Course/Dx - Course Assessment/Plan: This patient is a 88 year old male brought in by EMS with a cc of uncontrolled bleeding of the left forearm. The patient states he was at the dermatologists yesterday and had a spot removed from his left forearm and repaired with sutures. 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 On exam there is no active bleeding. The patient has no other complaints at this time. The wound was redressed and the pt will be discharged and f/u with pcp. - Differential Diagnoses - Skin Complaint Differential Diagnoses: Other - abrasion lf forear/avulsion skin/ post op bleeding - Diagnoses Provider Diagnoses: Post-op bleeding, Skin avulsion Discharge - Sign-Out/Discharge Documenting (check all that apply): Patient Departure Patient Received Moderate/Deep Sedation with Procedure: No - Discharge Plan Condition: Stable Disposition: HOME Referrals: Brina Sánchez MD [Primary Care Provider] - Additional Instructions: Follow up with your primary care physician in 1-3 days. RETURN TO THE EMERGENCY DEPARTMENT FOR CHANGING OR WORSENING SYMPTOMS. - Billing Disposition and Condition Condition: STABLE Disposition: Home - Attestation Statements Document Initiated by Scribe: Yes Documenting Scribe: Fransisco Segovia Provider For Whom Joseibritu is Documenting (Include Credential): Shahid Menon MD Scribe Attestation: Fransisco Travis, scribed for Shahid Menon MD on 05/23/18 at 0229. Scribe Documentation Reviewed: Yes Provider Attestation: The documentation as recorded by the Fransisco wilhelm accurately reflects the service I personally performed and the decisions made by Shahid sauer MD Status of Scribe Document: Viewed
[2018-05-23 03:11] VITALS: BP 112/59
== END 2018-05-23 03:10 | disposition home or self-care (01) ==
LOC: ED 01:27
DX: L76.21 Postprocedural hemorrhage of skin and subcutaneous tissue following a dermatologic procedure (principal); I25.10 Atherosclerotic heart disease of native coronary artery without angina pectoris; Z86.19 Personal history of other infectious and parasitic diseases; Z87.891 Personal history of nicotine dependence
CPT/HCPCS: 99282

== ENCOUNTER 2018-07-01 16:15 | Emergency (ER) | payer MEDICARE, BC ==
--- NOTE | 2018-07-01 16:54 | ED ---
Head Injury - HPI Summary HPI Summary: Patient from [facility] complains of mechanical fall at 9 AM with subsequent posterior head lac. Patient was found moments after by staff. Both patient and staff deny LOC, LARSON, vision change, N/V, AMS, any other pain injury or symptoms. Despite several pressure dressings, lack continues to bleed and was sent to the ED for further evaluation. Patient off Coumadin for 4 weeks due to Peg tube placement. Patient is strictly nothing by mouth. Medical history includes SAH, A. fib, CAD, anemia, Parkinson's, BPH. - History Of Current Complaint Chief Complaint: EDHeadInjury Stated Complaint: HEAD LACERATION PER EMS Time Seen by Provider: 07/01/18 16:34 Hx Obtained From: Patient, Family/Gate Manager Mechanism Of Injury: Fall From A Standing Position Onset/Duration: Started Hours Ago Severity Currently: None Pain Intensity: 0 Pain Scale Used: 0-10 Numeric Associated Signs And Symptoms: Negative - Allergies/Home Medications Allergies/Adverse Reactions: Allergies Allergy/AdvReac Type Severity Reaction Status Date / Time No Known Allergies Allergy Verified 07/01/18 16:23 PMH/Surg Hx/FS Hx/Imm Hx Endocrine/Hematology History: Denies: Hx Diabetes, Hx Thyroid Disease Cardiovascular History: Reports: Hx Coronary Artery Disease, Hx Hypercholesterolemia, Hx Hypertension, Other Cardiovascular Problems/Disorders - cardiomyopathy, CABGx4 Denies: Hx Congestive Heart Failure, Hx Deep Vein Thrombosis, Hx Myocardial Infarction, Hx Pacemaker/ICD Respiratory History: Reports: Other Respiratory Problems/Disorders - pneumonia Denies: Hx Asthma, Hx Chronic Obstructive Pulmonary Disease (COPD), Hx Lung Cancer, Hx Pneumonia, Hx Pulmonary Embolism GI History: Reports: Hx Gall Bladder Disease - gallbladder stones, Other GI Disorders - Pt reports "calcium lump" in throat Denies: Hx Gastrointestinal Bleed, Hx Ulcer, Hx Urosepsis History: Reports: Hx Benign Prostatic Hyperplasia, Hx Kidney Stones, Other Problems/Disorders - ENLARGE PROSTATE Denies: Hx Renal Disease Musculoskeletal History: Reports: Hx Arthritis - RIGHT WRIST, Hx Rheumatoid Arthritis - MORE ON THE RIGHT WRIST THAN THE LEFT, Hx Gout Sensory History: Reports: Hx Contacts or Glasses Denies: Hx Hearing Aid Opthamlomology History: Reports: Hx Contacts or Glasses Neurological History: Denies: Hx Dementia, Hx Migraine, Hx Seizures, Hx Transient Ischemic Attacks (TIA) Psychiatric History: Reports: Hx Depression - He states that he is a bit depressed, but not on medications. 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 tonsil. lasik surgery Hx Anesthesia Reactions: No Infectious Disease History: No Infectious Disease History: Reports: Hx Shingles, History Other Infectious Disease - Lyme's Disease Denies: Traveled Outside the [place] in Last 30 Days - Family History Known Family History: Positive: Cardiac Disease - parenst, Hypertension - parents Negative: Renal Disease, Blood Disorder - Social History Alcohol Use: None Alcohol Amount: 3 oz Substance Use Type: Reports: None Hx Tobacco Use: Yes Smoking Status (MU): Former Smoker Amount Used/How Often: 1/2 PPD Length of Time of Smoking/Using Tobacco: 11 YEARS Have You Smoked in the Last Year: No Review of Systems Constitutional: Negative Eyes: Negative ENT: Negative Cardiovascular: Negative Respiratory: Negative Gastrointestinal: Negative Genitourinary: Negative Musculoskeletal: Negative Skin: Other Neurological: Negative Psychological: Normal All Other Systems Reviewed And Are Negative: Yes Physical Exam Triage Information Reviewed: Yes Vital Signs On Initial Exam: Initial Vitals Temp Pulse Resp BP Pulse Ox 98.2 F 97 19 107/65 98 07/01/18 16:23 07/01/18 16:23 07/01/18 16:23 07/01/18 16:23 07/01/18 16:23 Vital Signs Reviewed: Yes Appearance: Positive: Well-Appearing Skin: Positive: Warm Head/Face: Positive: Normal Head/Face Inspection Eyes: Positive: Normal Neck: Positive: Supple Respiratory/Lung Sounds: Positive: Clear to Auscultation Cardiovascular: Positive: Normal Abdomen Description: Positive: Nontender Musculoskeletal: Positive: Normal Neurological: Positive: Normal Psychiatric: Positive: Normal AVPU Assessment: Alert - Aileen Coma Scale Best Eye Response: 4 - Spontaneous Best Motor Response: 6 - Obeys Commands Procedures - Laceration/Wound Repair 1 Location: head Description: Irregular Length, Depth and Shape: 2cm x .5cm Betadine Prep?: Yes Irrigated w/ Saline (ccs): 100 Laceration/Wound Explored: clean Closure: [place] #__ - 4 Debridement: minimal Number of Sutures: 0 Layer Closure?: No Sterile Dressing Applied?: No Diagnostics - Vital Signs Vital Signs Temp Pulse Resp BP Pulse Ox 07/01/18 16:23 98.2 F 97 19 107/65 98 - Laboratory Lab Statement: Any lab studies that have been ordered have been reviewed, and results considered in the medical decision making process. Head Injury Course/Dx Course Of Treatment: Patient from [facility] complains of mechanical fall at 9 AM with subsequent posterior head lac. Patient was found moments after by staff. Both patient and staff deny LOC, LARSON, vision change, N/V, AMS, any other pain injury or symptoms. Despite several pressure dressings, lack continues to bleed and was sent to the ED for further evaluation. Patient off Coumadin for 4 weeks due to Peg tube placement. Patient is strictly nothing by mouth. Medical history includes SAH, A. fib, CAD, anemia, Parkinson's, BPH. Physical exam: No exam normal. Skin tears along superior surface of the head with one laceration posteriorly. Vital signs within normal limits. CT of brain and C-spine negative for acute process. 4 henri placed on laceration. Bleeding controlled. Wound covered with antibiotic ointment and Telfa applied with pressure dressing to facilitate further potential bleeding control. Patient from nursing facility can have dressing removed in the morning. - Diagnoses Provider Diagnoses: Fall, Laceration, Skin tear, Head injury Discharge - Sign-Out/Discharge Documenting (check all that apply): Patient Departure Patient Received Moderate/Deep Sedation with Procedure: No - Discharge Plan Condition: Stable Disposition: CUSTODIAL FACILITY Prescriptions: Cephalexin CAP* [Keflex CAP*] 500 mg PO TID 4 Days #12 cap Patient Education Materials: Laceration (ED), Staple Care (ED) Referrals: Brina Sánchez MD [Primary Care Provider] - Additional Instructions: Remove dressing tomorrow morning. May wash wound with warm water and soap. Keep wound clean and dry when not washing. Take antibiotic as directed. Brierfield out in 10 days. Return to the ED for any new or worsening symptoms. - Billing Disposition and Condition Condition: STABLE Disposition: Alf Facility
[2018-07-01] MEDS ORDERED: Cephalexin CAP* 500 MG PO ONE (19:38)
[2018-07-01] MEDS ORDERED: Tetan/Diph/Pertus SYR(Tdap)* 0.5 ML SYR(BOOSTRIX) use SYR IM ONE ×2 (19:38→19:40)
[2018-07-01 20:48] VITALS: BP 140/68
== END 2018-07-01 20:47 ==
LOC: ED 16:15
DX: S01.01XA Laceration without foreign body of scalp, initial encounter (principal); S09.90XA Unspecified injury of head, initial encounter; W19.XXXA Unspecified fall, initial encounter; Y92.129 Unspecified place in nursing home as the place of occurrence of the external cause; Z23 Encounter for immunization; I48.91 Unspecified atrial fibrillation; D64.9 Anemia, unspecified; G20 Parkinson's disease; N40.0 Benign prostatic hyperplasia without lower urinary tract symptoms; I25.10 Atherosclerotic heart disease of native coronary artery without angina pectoris; E78.00 Pure hypercholesterolemia, unspecified; I10 Essential (primary) hypertension; I42.9 Cardiomyopathy, unspecified; Z95.1 Presence of aortocoronary bypass graft; Z87.891 Personal history of nicotine dependence
CPT/HCPCS: 12001; 70450; 72125; 90471; 90715; 99283; A9270-GY

== ENCOUNTER 2018-09-29 23:18 | Inpatient (IN) | payer MEDICARE, BC ==
[2018-09-30 00:11] LABS: Hematocrit 35 % (42-52); Hemoglobin 11.2 g/dL (14.0-18.0); Mean Corpuscular HGB Conc 32 g/dL (31-36); Mean Corpuscular Hemoglobin 31 pg (27-31); Mean Corpuscular Volume 96 fL (80-94); Mean Platelet Volume 8.3 fL (7.4-10.4); Platelet Count 762 10^3/uL (150-450); Red Blood Count 3.68 10^6 /uL (4.18-5.48); Red Cell Distribution Width 22 % (10-15)
[2018-09-30 00:26] LABS: ALT 4 U/L (7-52); AST 24 U/L (13-39); Albumin 3.6 g/dL (3.2-5.2); Albumin/Globulin Ratio 1.3 (1-3); Alkaline Phosphatase 171 U/L (34-104); Anion Gap 4 mmol/L (2-11); BUN/Creatinine Ratio 43.8 (8-20); Blood Urea Nitrogen 28 mg/dL (6-24); C Reactive Protein 10.87 mg/L (<8.01); CO2 Carbon Dioxide 32 mmol/L (22-32); Chloride 102 mmol/L (101-111); EGFR African American 142.5 (>60); EGFR Non-African American 117.8 (>60); Globulin 2.7 g/dL (2-4); Glucose 89 mg/dL (70-100); Potassium 4.2 mmol/L (3.5-5.0); Sodium 138 mmol/L (135-145); Total Protein 6.3 g/dL (6.4-8.9)
--- NOTE | 2018-09-30 00:31 | ED ---
Shortness of Breath - HPI Summary HPI Summary: 88-year-old male presents with shortness breath today. They're feeding with his PEG tube and he seemed to choke and developed shortness breath. Denies any chest pain. He has been having a cough. He states he has been gaining weight. He states that when moves shortness breath is worse when he moves. No one fevers that he knows of. Denies any sore throat. No nausea or vomiting. Has history of dysphagia. He states feels okay until tries to move then has severe shortness of breath. - History of Current Complaint Chief Complaint: EDShortnessOfBreath Time Seen by Provider: 09/29/18 23:35 - Allergy/Home Medications Allergies/Adverse Reactions: Allergies Allergy/AdvReac Type Severity Reaction Status Date / Time No Known Allergies Allergy Verified 07/01/18 16:23 Home Medications: Home Medications Augmentin 875 Mg - 125 Mg 875 mg PO BID 09/30/18 [History Confirmed 09/30/18] Augmentin TAB 500 mg* 500 mg PO DAILY 09/30/18 [History Confirmed 09/30/18] Furosemide 20 mg PO EVERY OTHER DAY 09/30/18 [History Confirmed 09/30/18] Omeprazole CAP (NF) 20 mg PO BID 09/30/18 [History Confirmed 09/30/18] Restasis 0.05% OPHTH 1 drop BOTH EYES BID 09/30/18 [History Confirmed 09/30/18] Spironolactone 25 mg PO EVERY OTHER DAY 09/30/18 [History Confirmed 09/30/18] Vitamin D3 2,000 units PO DAILY 09/30/18 [History Confirmed 09/30/18] PMH/Surg Hx/FS Hx/Imm Hx Endocrine/Hematology History: Denies: Hx Diabetes, Hx Thyroid Disease Cardiovascular History: Reports: Hx Coronary Artery Disease, Hx Hypercholesterolemia, Hx Hypertension, Other Cardiovascular Problems/Disorders - cardiomyopathy, CABGx4 Denies: Hx Congestive Heart Failure, Hx Deep Vein Thrombosis, Hx Myocardial Infarction, Hx Pacemaker/ICD Respiratory History: Reports: Other Respiratory Problems/Disorders - pneumonia Denies: Hx Asthma, Hx Chronic Obstructive Pulmonary Disease (COPD), Hx Lung Cancer, Hx Pneumonia, Hx Pulmonary Embolism GI History: Reports: Hx Gall Bladder Disease - gallbladder stones, Other GI Disorders - Pt reports "calcium lump" in throat Denies: Hx Gastrointestinal Bleed, Hx Ulcer, Hx Urosepsis History: Reports: Hx Benign Prostatic Hyperplasia, Hx Kidney Stones, Other Problems/Disorders - ENLARGE PROSTATE Denies: Hx Renal Disease Musculoskeletal History: Reports: Hx Arthritis - RIGHT WRIST, Hx Rheumatoid Arthritis - MORE ON THE RIGHT WRIST THAN THE LEFT, Hx Gout Sensory History: Reports: Hx Contacts or Glasses Denies: Hx Hearing Aid Opthamlomology History: Reports: Hx Contacts or Glasses Neurological History: Denies: Hx Dementia, Hx Migraine, Hx Seizures, Hx Transient Ischemic Attacks (TIA) Psychiatric History: Reports: Hx Depression - He states that he is a bit depressed, but not on medications. 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 tonsil. lasik surgery Hx Anesthesia Reactions: No Infectious Disease History: No Infectious Disease History: Reports: Hx Shingles, History Other Infectious Disease - Lyme's Disease Denies: Traveled Outside the [place] in Last 30 Days - Family History Known Family History: Positive: Cardiac Disease - parenst, Hypertension - parents Negative: Renal Disease, Blood Disorder - Social History Alcohol Use: None Alcohol Amount: 3 oz Substance Use Type: Reports: None Hx Tobacco Use: Yes Smoking Status (MU): Former Smoker Amount Used/How Often: 1/2 PPD Length of Time of Smoking/Using Tobacco: 11 YEARS Have You Smoked in the Last Year: No Review of Systems Negative: Fever Negative: Chest Pain Positive: Shortness Of Breath, Cough Negative: Abdominal Pain All Other Systems Reviewed And Are Negative: Yes Physical Exam Triage Information Reviewed: Yes Vital Signs On Initial Exam: Initial Vitals Temp Pulse Resp BP Pulse Ox 98.6 F 81 22 105/65 97 09/29/18 23:21 09/29/18 23:21 09/29/18 23:21 09/29/18 23:21 09/29/18 23:21 Vital Signs Reviewed: Yes Appearance: Positive: Well-Appearing Skin: Positive: Warm, Dry Head/Face: Positive: Normal Head/Face Inspection Eyes: Positive: Normal, Conjunctiva Clear ENT: Positive: Pharynx normal Respiratory/Lung Sounds: Positive: Rales Cardiovascular: Positive: Normal, RRR Abdomen Description: Positive: Nontender, Soft Bowel Sounds: Positive: Present Musculoskeletal: Positive: Normal Neurological: Positive: Normal Psychiatric: Positive: Normal Diagnostics - Vital Signs Vital Signs Temp Pulse Resp BP Pulse Ox 09/29/18 23:21 98.6 F 81 22 105/65 97 - Laboratory Lab Results: Lab Results 09/30/18 Range/Units 00:00 WBC 11.0 H (3.5-10.8) 10^3/uL RBC 3.68 L (4.18-5.48) 10^6 /uL Hgb 11.2 L (14.0-18.0) g/dL Hct 35 L (42-52) % MCV 96 H (80-94) fL MCH 31 (27-31) pg MCHC 32 (31-36) g/dL RDW 22 H (10-15) % Plt Count 762 H D (150-450) 10^3/uL MPV 8.3 (7.4-10.4) fL Neut % (Auto) Pending Lymph % (Auto) Pending Lumpkin % (Auto) Pending Eos % (Auto) Pending Baso % (Auto) Pending Absolute Neuts (auto) Pending Absolute Lymphs (auto) Pending Absolute Monos (auto) Pending Absolute Eos (auto) Pending Absolute Basos (auto) Pending Absolute Nucleated RBC Pending Nucleated RBC % Pending Result Diagrams: 09/30/18 00:00 09/30/18 00:00 Lab Statement: Any lab studies that have been ordered have been reviewed, and results considered in the medical decision making process. - Radiology chest Radiology Interpretation Completed By: ED Physician Summary of Radiographic Findings: bilateral pneumonia, pleural effusion - EKG No standard instances Cardiac Rate: NL EKG Rhythm: Atrial Fibrillation EKG Comparison: No Significant Change Summary of EKG Findings: atrial fibrillation Re-Evaluation - Re-Evaluation First Eval Re-Evaluation Time: 01:06 Comment: o2 100 on 4 liters Course/Dx - Course Course Of Treatment: 88-year-old male presents with shortness breath today. They're feeding with his PEG tube and he seemed to choke and developed shortness breath. Denies any chest pain. He has been having a cough. He states he has been gaining weight. He states that when moves shortness breath is worse when he moves. No one fevers that he knows of. Denies any sore throat. No nausea or vomiting. Has history of dysphagia. He states feels okay until tries to move then has severe shortness of breath. on exam rales heard diffuse. wbc normal. troponin .04. chest xray shows bilateral pneumonia. gave dose of lasix and zosyn. on 4 liters and stating at 97 present. feeling better after lasix. discussed case with dr martinez who agrees to admit. - Diagnoses Differential Diagnosis/HQI/PQRI: Positive: Bronchitis, Pneumonia Provider Diagnoses: Shortness of breath, Aspiration pneumonia - Critical Care Time Critical Care Time: 30-74 min - 40 mins Discharge - Sign-Out/Discharge Documenting (check all that apply): Patient Departure - Discharge Plan Condition: Stable Disposition: ADMITTED TO [facility] - Billing Disposition and Condition Condition: STABLE Disposition: Admitted to [facility]
[2018-09-30] MEDS ORDERED: Furosemide IV* 10 MG/ML VIAL (40 MG) IV SLOW PU ONE (00:32)
[2018-09-30 00:35] LABS: Troponin I 0.04 ng/mL (<0.04)
[2018-09-30] MEDS ORDERED: Piperacillin/Tazobac ADVAN(*) 3.375 GM in NS 0.9% 100 ML* 100 ML IVPB ONE (00:45)
[2018-09-30 00:52] LABS: ABS Basophils 0.2 10^3/ul (0-0.2); ABS Eosinophils 0.4 10^3/ul (0-0.6); ABS Lymphocytes 0.9 10^3/ul (1.0-4.8); ABS Neutrophils 8.5 10^3/ul (1.5-7.7); Eosinophil % 3.5 %; Lymphocyte % 8.6 %; Nucleated Red Blood Cells % 0.3
[2018-09-30] MEDS ORDERED: Morphine INJ* 2 MG/ML 1 ML SYRINGE (TWO MG - NEW SYRINGE VERSION) IV PRN (01:49)
[2018-09-30] MEDS ORDERED: Ondansetron INJ* 2 MG/ML VIAL IV PRN (01:49)
[2018-09-30] MEDS ORDERED: Albuterol 2.5 MG/3 ML NEB.SOL* (0.083%) INH PRN (01:53)
[2018-09-30] MEDS ORDERED: Lactated Ringers 1000 ML Bag* 1,000 ML IV SCH (02:00)
[2018-09-30] MEDS ORDERED: Zosyn per Pharmacy* NOTE FOLLOW UP SCH (02:00)
[2018-09-30 02:06] LABS: Prealbumin 13 mg/dL (18-38)
[2018-09-30] MEDS ORDERED: Melatonin 3 MG TAB PO PRN (02:07)
[2018-09-30] MEDS ORDERED: Senna TAB PO PRN (02:07)
[2018-09-30] MEDS ORDERED: Polyethylene Glycol 3350* 17 GM PACKET PO PRN (02:07)
[2018-09-30] MEDS: Enoxaparin(*) 40 MG/0.4 ML SYR SUBCUT SCH (03:32)
[2018-09-30] MEDS: ZOSYN 3.375 GM Q8H per EXTENDED INFUSION IVPB SCH ×6 (04:12→20:45)
--- NOTE | 2018-09-30 04:34 | HP ---
CC: Brina Sánchez MD * HISTORY AND PHYSICAL: DATE OF ADMISSION: 09/30/18 TIME OF EVALUATION: 0200. PRIMARY CARE PHYSICIAN: Brina Sánchez MD CHIEF COMPLAINT: Shortness of breath. HISTORY OF PRESENT ILLNESS: This is an 88-year-old male with a past medical history of Parkinson's, who was admitted back in May for aspiration pneumonia and had a PEG tube placed at that time for dysphagia, went back to [facility] for a trial of increasing his strength. He states he has been fully gaining weight back, but does cough after he gets his tube feeds. He states there has been increase in shortness of breath for the past 3 to 4 weeks. This afternoon, he had a significant coughing attack shortly after he had his PEG tube feeding. He has had a productive cough. No chest pain. He has had some loose stools. No vomiting. He does not think he has gotten any of his strength back. He thinks may be the PEG tube has helped. He does do ismael chi from a chair 30 minutes every day, but otherwise he needs assistance to stand or to ambulate at all due to how weak he is. Otherwise, remaining review of systems is negative. In the emergency room, the patient had labs and imaging, was referred to the hospitalist service for further evaluation. PAST MEDICAL HISTORY: 1. History of dysphagia, status post PEG tube in May 2018. 2. History of coronary artery disease. 3. History of subarachnoid hemorrhage. 4. History of Parkinson's. 5. History of aspiration pneumonia. 6. History of atrial fibrillation, not on anticoagulation. 7. History of severe protein-calorie malnutrition. MEDICATIONS: 1. Vitamin D3 2000 units daily. 2. Spironolactone 25 mg p.o. every other day. 3. Senna 2 tabs at bedtime as needed. 4. Crestor 2.5 mg Saturday, Saturday, and Saturday. 5. Restasis 1 drop both eyes b.i.d. 6. MiraLAX daily as needed. 7. Pilocarpine 5 mg t.i.d. 8. Omeprazole 20 mg p.o. b.i.d. 9. Melatonin as needed. 10. Lasix 20 mg every other day. 11. Carbidopa/levodopa 25/100 one tab p.o. t.i.d. 12. Three different Augmentin dose medications in here, it is unclear. 13. Aspirin 81 mg daily. 14. Mylanta as needed. ALLERGIES: No known drug allergies. SOCIAL HISTORY: The patient lives in the [facility]. 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 His healthcare proxy is Laura Robles. The patient confirms he is a DNR/DNI. FAMILY HISTORY: Reviewed and negative. REVIEW OF SYSTEMS: A 14-point review of systems as mentioned in the HPI, otherwise negative. PHYSICAL EXAMINATION GENERAL: Frail elderly man, in no acute distress, does have conversational dyspnea. VITAL SIGNS: Temp 98, pulse rate is 81, respiratory rate 18, oxygen saturation is 96% on 4 L, blood pressure 123/70. HEENT: Head: Normocephalic. Pupils are equal and reactive. Does have mild conjunctival erythema. Oropharynx: Mucous membranes are moist. NECK: Supple. No adenopathy. RESPIRATORY: Poor aeration. Faint rhonchi bilaterally with a coarse wet cough with upper airway adventitious lung sounds. Intermittent increased work of breathing with conversation. CARDIAC: Irregularly regular rhythm. Soft systolic murmur heard throughout. ABDOMEN: Soft, nontender, nondistended. EXTREMITIES: +1 pedal edema. NEUROLOGIC: Alert and oriented x3. No gross focal neurologic deficits. Generalized diffuse weakness. DIAGNOSTIC STUDIES/LABORATORY DATA: White count 11, hemoglobin 11.2, hematocrit 35, platelets 762. D-dimer of less than 200. Sodium 138, potassium 4.2, chloride 102, bicarb 32, BUN 28, creatinine 0.64, glucose 89, lactic acid 0.8. Troponin 0.04, CRP is 10.87, BNP is 885. Radiographic data: EKG, atrial fibrillation, nonspecific ST changes. Chest x- ray is a poor film showing bilateral opacities with some prominent interstitial markings suggestive of bilateral pneumonia and question some interstitial edema as well. ASSESSMENT AND PLAN: This is an 88-year-old male with a past medical history of dysphagia, status post PEG tube and Parkinson's, who presents from [facility] for increasing shortness of breath. 1. Shortness of breath. Assessment: I suspect this is recurrent aspiration pneumonia and possibly some underlying interstitial edema as well. The PEG tube seems to have helped increase his weight per patient, but overall quality with strength, it does not seem to have made a significant difference over the past several months. Discussed with the patient that he is still at increased risk for aspirating even with a PEG tube and this is likely what is happening. I did discuss hospice as an option for him and how they could come to the [facility] and support him there. He is interested in hearing more about this and things that make sense. For now, plan will be to admit him. Treat him for aspiration pneumonia. Continue him on Zosyn. It is not clear if he has been on Augmentin based on the MAR from [facility]. Going to hold off on further IV fluids because of his chest x-ray findings and how coarse and wet he sounds. I am going to hold off tube feeds at this time and place a software engineering analyst consult and defer to Dr. Sánchez to discuss this further with the patient in terms of quality and indications. Will add on a prealbumin as well. Trial of albuterol neb as well. 2. Chronic medical problems. We will continue his medications as prescribed. We are going to hold his spironolactone and Lasix for now. Recommend followup offical read of his chest x-ray. Trend his troponin. We will hold off on obtaining an echocardiogram at this time. 3. FEN: The patient is NPO as mentioned. Nutrition consult for guidance on tube feeds and to determine with Dr. Sánchez if the risks outweigh the benefits. 4. Code status. The patient states he is a DNR/DNI. We will update his MOLST form to reflect this. PATIENT TIME: Greater than 45 minutes was spent doing the history and physical , more than half the time was spent in direct patient contact. [id number]/[facility] #: [id number] KIM
[2018-09-30 06:59] LABS: Troponin I 0.03 ng/mL (<0.04)
[2018-09-30] MEDS ORDERED: Furosemide IV* 10 MG/ML VIAL (40 MG) IV ONE (08:52)
[2018-09-30 08:56] LABS: Magnesium 2.1 mg/dL (1.9-2.7); Phosphorus 4.3 mg/dL (2.5-5.0)
[2018-09-30 09:38] LABS: % Iron Saturation 9 % (15-55); Iron 36 ug/dL (50-212); Total Iron Binding Capacity 423 mcg/dL (250-450); Transferrin 302 mg/dL (203-362)
[2018-09-30] MEDS: Pantoprazole TAB * 40 MG TAB PO SCH ×2 (09:39→20:49)
[2018-09-30] MEDS: Aspirin EC TAB* 81 MG TAB.EC PO SCH (09:39)
[2018-09-30] MEDS: Cholecalciferol TAB* 1000 UNITS PO SCH (09:39)
[2018-09-30] MEDS: Carbidopa/Levodop 25/100 MG TAB(*) PO SCH ×3 (09:39→20:49)
[2018-09-30] MEDS: RESTASIS 0.05% BOTH EYES SCH ×2 (10:01→20:45)
[2018-09-30] MEDS: PILOCARPINE 5 MG PO SCH ×3 (10:01→20:49)
--- NOTE | 2018-09-30 16:30 | ECHO ---
*[facility]* [place] [address] Fax #: [phone] Transthoracic Echocardiogram Patient: Diony, Height: 69 in / Raymundo W 175.3 cm : 1930 Weight: 161.7 lb / Study Date: 09/30/2018 73.5 kg Age: 88 BP: 115 / 55 Gender: M BMI/BSA: 23.9 kg/m^2 HR: 87 bpm / 1.89 m^2 *Senior Interactive Producer: * Brittany Damon [facility] RN *Referring Physician: * Nakul Sánchez *Reading Physician: * Bunny Saldana MD Indications: Cardiomyopathy History: Atrial fibrillation. Coronary artery disease. Cardiomyopathy. Parkinson's disease. Risk factors: Dyslipidemia. Labs, prior tests, procedures, and surgery: Coronary artery bypass grafting. Conclusions Summary: 1. Left ventricle: Systolic function is moderately reduced. The estimated ejection fraction is 35-40%. Moderate diffuse hypokinesis. Akinesis of the basal-midinferior myocardium. 2. Right ventricle: Systolic function is low normal. The estimated peak pressure is 39 mm Hg. 3. Ventricular septum: Ventricular septal wall motion has a postoperative appearance. Asychrony due to LBBB 4. Left atrium: The atrium is severely dilated. 5. Mitral valve: There is moderate to severe regurgitation. The mitral regurgitation jet is laterally directed 6. Aortic valve: The valve is trileaflet. The leaflets are moderately thickened. The findings are consistent with moderate stenosis. There is no significant regurgitation. The mean systolic gradient is 12.0 mm Hg. The valve area by the peak velocity method is 1.20 cm^2. 7. Pericardium, extracardiac: There is no significant pericardial effusion. There is a pleural effusion present. 8. Pulmonary arteries: Systolic pressure is mildly increased, estimated to be 39 mm Hg. 9. Compared to study of 01/20/18, there is little change. Study data: Transthoracic echocardiogram. Procedure: Transthoracic echocardiography was performed. Image quality was fair. Complete 2D, spectral Doppler, and color flow Doppler. Patient status: Inpatient. Patient room number: 415-02. Rhythm: Atrial fibrillation. Findings Left ventricle: The cavity size is normal. Systolic function is moderately reduced. The estimated ejection fraction is 35-40%. Moderate diffuse hypokinesis. Regional wall motion abnormalities: Akinesis of the basal-midinferior myocardium. Left ventricular diastolic function parameters are indeterminate. Right ventricle: The cavity size is normal. Systolic function is low normal. The estimated peak pressure is 39 mm Hg. Ventricular septum: Ventricular septal wall motion has a postoperative appearance. Asychrony due to LBBB Left atrium: The atrium is severely dilated. Right atrium: The atrium is moderately dilated. Mitral valve: The leaflets are mildly thickened. There is no evidence of stenosis. There is moderate to severe regurgitation. The mitral regurgitation jet is laterally directed Aortic valve: The valve is trileaflet. The leaflets are moderately thickened. The findings are consistent with moderate stenosis. There is no significant regurgitation. Tricuspid valve: The valve is structurally normal. There is no evidence of stenosis. There is mild-moderate regurgitation. Pulmonic valve: Not well visualized. There is no evidence of stenosis. There is trace regurgitation. Aorta: Aortic root: The aortic root is not dilated. Ascending aorta: The ascending aorta is not dilated. Aortic arch: The aortic arch is not visualized. Pericardium: There is no significant pericardial effusion. There is a pleural effusion present. Pulmonary arteries: Not well visualized. Systolic pressure is mildly increased, estimated to be 39 mm Hg. Systemic veins: Inferior vena cava: Not visualized. Measurements Left ventricle Value Ref Aortic valve Value Ref LUCERO, LAX 5.0 cm 4.2 - 5.8 Nakul diam, ED 2.1 cm ----- ESD, LAX (H) 4.3 cm 2.5 - 4.0 Peak v, S 2.3 m/sec ----- FS, LAX (L) 14 % 25 - 43 VTI, S 50.0 cm ----- PW, ED, LAX (H) 1.2 cm 0.6 - 1.0 Mean grad, S 12.0 mm Hg ----- IVS/PW, ED 1.01 Peak grad, S 21.2 mm Hg ----- E', lat nakul, TDI (L) 7.0 cm/sec >=10.0 LVOT/AV, VTI ratio 0.31 --- -- E/e', lat nakul, 12 KATHRYN, VTI 1.10 cm^2 ----- TDI KATHRYN, Vmax 1.20 cm^2 ----- E', med nakul, TDI (L) 4.9 cm/sec >=7.0 E/e', med nakul, 18 Mitral valve Value Ref TDI Peak E 0.87 m/sec ----- E', avg, TDI 6.0 cm/sec Decel time 234 ms ----- E/e', avg, TDI (H) 15 <=14 Peak grad, D 3.0 mm Hg --- -- ERO, PISA 0.25 cm^2 ----- LVOT Value Ref MR vol, PISA 39 ml ----- Area 3.5 cm^2 MR fraction, PISA 34 % ----- Peak jamil, S 0.8 m/sec VTI, S 15.3 cm Pulmonic valve Value Ref SV 75 ml Peak v, S 0.68 m/sec ----- SV/bsa 40 ml/m^2 Peak grad, S 2.0 mm Hg ----- Ventricular septum Value Ref Tricuspid valve Value Ref IVS, ED (H) 1.2 cm 0.6 - 1.0 TR peak v 2.8 m/sec <=2.8 Peak RV-RA grad, S 31 mm Hg ----- Right ventricle Value Ref Max TR jamil 2.8 m/sec ----- LUCERO minor ax, A4C (H) 3.7 cm 1.9 - 3.5 mid Aortic root Value Ref Pressure, S 39 mm Hg Root diam 3.5 cm <4.1 Left atrium Value Ref Ascending aorta Value Ref AP dim, ES (H) 4.10 cm 3.00 - AAo AP diam, S 3.5 cm ----- 4.00 ML dim, A4C 4.7 cm Pulmonary artery Value Ref SI dim, A4C 7.1 cm Pressure, S 39.0 mm Hg ----- Vol/bsa, ES, 1-p (H) 56 ml/m^2 12 - 37 A4C Vol/bsa, ES, A/L (H) 68 ml/m^2 16 - 34 Right atrium Value Ref SI dim, ES (H) 6.4 cm 3.4 - 5.3 ML dim, ES, A4C (H) 5.3 cm 2.6 - 4.4 SI dim, ES, A4C (H) 6.4 cm 3.4 - 5.3 Estimated RAP 8 mm Hg Legend: (L) and (H) saira values outside specified reference range. Prepared and electronically signed by Bunny Saldana MD 09/30/2018 16:29
[2018-09-30] MEDS ORDERED: Cyclosporine 0.05% OPHTH (NF) 0.4 ML VIAL ONE (20:45)
[2018-10-01] MEDS: Enoxaparin(*) 40 MG/0.4 ML SYR SUBCUT SCH (03:41)
[2018-10-01] MEDS: ZOSYN 3.375 GM Q8H per EXTENDED INFUSION IVPB SCH ×6 (04:47→21:13)
[2018-10-01 06:46] LABS: Hematocrit 34 % (42-52); Hemoglobin 11.3 g/dL (14.0-18.0); Mean Corpuscular HGB Conc 34 g/dL (31-36); Mean Corpuscular Hemoglobin 32 pg (27-31); Mean Corpuscular Volume 95 fL (80-94); Mean Platelet Volume 8.1 fL (7.4-10.4); Platelet Count 782 10^3/uL (150-450); Red Blood Count 3.56 10^6 /uL (4.18-5.48); Red Cell Distribution Width 22 % (10-15); White Blood Count 10.9 10^3/uL (3.5-10.8)
[2018-10-01 07:01] LABS: BUN/Creatinine Ratio 28.9 (8-20); C Reactive Protein 11.65 mg/L (<8.01); Calcium 8.9 mg/dL (8.6-10.3); EGFR African American 96.1 (>60); EGFR Non-African American 79.5 (>60); Potassium 3.5 mmol/L (3.5-5.0)
[2018-10-01 07:49] LABS: ABS Basophils 0.2 10^3/ul (0-0.2); ABS Eosinophils 0.9 10^3/ul (0-0.6); ABS Lymphocytes 0.8 10^3/ul (1.0-4.8); ABS Monocytes 0.9 10^3/ul (0-0.8); Eosinophil % 8.3 %; Large Platelets Present; Lymphocyte % 7.7 %
[2018-10-01] MEDS ORDERED: Iron Sucrose* 20 MG/ML 5 ML VIAL IV PUSH ONE (09:32)
[2018-10-01] MEDS ORDERED: Iron Sucrose* 200 MG in NS 0.9% 100 ML* 100 ML IVPB ONE (10:30)
[2018-10-01] MEDS: Cholecalciferol TAB* 1000 UNITS PO SCH (10:47)
[2018-10-01] MEDS: Pantoprazole TAB * 40 MG TAB PO SCH ×2 (10:48→21:13)
[2018-10-01] MEDS: Carbidopa/Levodop 25/100 MG TAB(*) PO SCH ×3 (10:48→21:13)
[2018-10-01] MEDS: PILOCARPINE 5 MG PO SCH ×3 (10:48→21:10)
[2018-10-01] MEDS: Furosemide IV* 10 MG/ML VIAL (40 MG) IV SCH (10:48)
[2018-10-01] MEDS: Aspirin EC TAB* 81 MG TAB.EC PO SCH (10:48)
[2018-10-01] MEDS: RESTASIS 0.05% BOTH EYES SCH ×3 (11:00→21:13)
[2018-10-01] MEDS ORDERED: Cyclosporine 0.05% OPHTH (NF) 0.4 ML VIAL ONE ×2 (11:21→21:13)
--- NOTE | 2018-10-01 18:00 | PN ---
Progress Note - Progress Note Date of Service: 10/01/18 Note: BRIEF GI NOTE Called by Dr Sánchez as patient was noted to have tube feeds leaking from junction between PEG adaptor and pump. Patient examined. PEG bumper slightly loose from abdomen. Bumper tightened. Site looked ok. Tip from feeding pump was not sitting securely in PEG adaptor. The [facility] PEG replacement adaptor was exchanged. The connection between the PEG adaptor and kangaroo pump tubing was more secure. No leaking appreciated. Please contact GI with any further questions.
[2018-10-01] MEDS ORDERED: NS 0.9% 250 ML* 250 ML IV ONE (22:23)
[2018-10-02] MEDS: Enoxaparin(*) 40 MG/0.4 ML SYR SUBCUT SCH (03:12)
[2018-10-02] MEDS: ZOSYN 3.375 GM Q8H per EXTENDED INFUSION IVPB SCH ×6 (04:33→20:34)
[2018-10-02] MEDS: Carbidopa/Levodop 25/100 MG TAB(*) PO SCH ×3 (10:06→20:34)
[2018-10-02] MEDS: PILOCARPINE 5 MG PO SCH ×3 (10:06→20:34)
[2018-10-02] MEDS: Cholecalciferol TAB* 1000 UNITS PO SCH (10:07)
[2018-10-02] MEDS: Furosemide IV* 10 MG/ML VIAL (40 MG) IV SCH (10:07)
[2018-10-02] MEDS: Pantoprazole TAB * 40 MG TAB PO SCH ×2 (10:07→20:34)
[2018-10-02] MEDS: Aspirin EC TAB* 81 MG TAB.EC PO SCH (10:07)
[2018-10-02] MEDS: Cyclosporine 0.05% OPHTH (NF) 0.4 ML VIAL BOTH EYES SCH ×2 (10:07→20:34)
[2018-10-02] MEDS ORDERED: Iron Sucrose* 200 MG in NS 0.9% 100 ML* 100 ML IVPB ONE (11:00)
[2018-10-02] MEDS: RESTASIS 0.05% BOTH EYES SCH (11:04)
[2018-10-03] MEDS: Enoxaparin(*) 40 MG/0.4 ML SYR SUBCUT SCH (02:48)
[2018-10-03] MEDS: ZOSYN 3.375 GM Q8H per EXTENDED INFUSION IVPB SCH ×2 (04:15)
[2018-10-03 06:39] LABS: Hematocrit 34 % (42-52); Mean Corpuscular HGB Conc 33 g/dL (31-36); Mean Corpuscular Hemoglobin 31 pg (27-31); Mean Corpuscular Volume 96 fL (80-94); Mean Platelet Volume 7.7 fL (7.4-10.4); Platelet Count 694 10^3/uL (150-450); Red Blood Count 3.52 10^6 /uL (4.18-5.48); Red Cell Distribution Width 22 % (10-15); White Blood Count 7.2 10^3/uL (3.5-10.8)
[2018-10-03 07:00] LABS: Albumin 3.3 g/dL (3.2-5.2); Albumin/Globulin Ratio 1.1 (1-3); BUN/Creatinine Ratio 29.1 (8-20); C Reactive Protein 7.03 mg/L (<8.01); Calcium 8.9 mg/dL (8.6-10.3); EGFR African American 111.7 (>60); EGFR Non-African American 92.4 (>60); Globulin 3.1 g/dL (2-4); Potassium 3.5 mmol/L (3.5-5.0); Total Bilirubin 0.6 mg/dL (0.2-1.0); Total Protein 6.4 g/dL (6.4-8.9)
[2018-10-03] MEDS ORDERED: Iron Sucrose* 200 MG in NS 0.9% 100 ML* 100 ML IVPB ONE (08:38)
[2018-10-03] MEDS ORDERED: NS 0.9% 100 ML* 100 ML ONE (09:30)
[2018-10-03 09:32] LABS: ABS Basophils 0.2 10^3/ul (0-0.2); ABS Lymphocytes 0.7 10^3/ul (1.0-4.8); ABS Monocytes 0.9 10^3/ul (0-0.8); ABS Neutrophils 4.4 10^3/ul (1.5-7.7); Eosinophil % 13.4 %; Lymphocyte % 10.3 %
[2018-10-03] MEDS: Aspirin EC TAB* 81 MG TAB.EC PO SCH (09:41)
[2018-10-03] MEDS: Pantoprazole TAB * 40 MG TAB PO SCH (09:41)
[2018-10-03] MEDS: Carbidopa/Levodop 25/100 MG TAB(*) PO SCH (09:41)
[2018-10-03] MEDS: Cholecalciferol TAB* 1000 UNITS PO SCH (09:41)
[2018-10-03] MEDS: PILOCARPINE 5 MG PO SCH (09:41)
[2018-10-03] MEDS: Cyclosporine 0.05% OPHTH (NF) 0.4 ML VIAL BOTH EYES SCH (09:42)
[2018-10-03] MEDS: Furosemide IV* 10 MG/ML VIAL (40 MG) IV SCH (09:42)
--- NOTE | 2018-10-03 11:55 | TRS ---
Amended report to correct date of admission. CC: Boy Hernandez DISCHARGE SUMMARY: DATE OF ADMISSION: 09/30/18 DATE OF DISCHARGE: 10/03/18 DISCHARGE DIAGNOSES: 1. Pneumonia. 2. Congestive heart failure. 3. PEG tube dysfunction. 4. Parkinson disease. 5. Oropharyngeal dysphagia with PEG tube for nutrition. 6. Chronic atrial fibrillation. 7. History of left subarachnoid hemorrhage. 8. Benign prostatic hyperplasia. 9. Aortic stenosis. 10. Iron deficiency anemia. 11. 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 HISTORY: Raymundo Vora is an 88-year-old man admitted with shortness of breath due to aspiration pneumonia and CHF. Please see the dictated admission note for details of the present illness, past medical history, family history, social and personal history, review of systems, and physical examination. LABORATORY DATA: CBC: WBC 11, H and H 11.2/35, MCV 96, PLT 762,000. CBC on : WBC 10.9, H and H 11.3/34, MCV 95, PLT 782,000. CBC on 10/03/18 essentially unchanged except for WBC 7.2 and PLT 694,000. D-dimer less than 200. Chemistries on admission: Sodium 138, potassium 4.2, chloride 102, CO2 of 32, BUN and creatinine 28/0.64, glucose 89, BUN and creatinine ratio 42.8, calcium 9. Rest of the comprehensive metabolic panel was abnormal for total protein 6.3 and alk phos 171. Troponins were 0.04, 0.03. CRPs were 10.87, 11.65, and 7.03 on the date of discharge. BNP was 885 on 09/30/18, and was down to 645 on 10/03/18. Alk phos had come down to 145 on 10/03/18. BMP on with sodium 142, potassium 3.5, chloride 103, CO2 of 35, BUN and creatinine 23/0.79, glucose 125. Sputum Gram stain on 09/30/18 showed 3+ neutrophils, 2+ epithelial cells, 1+ nucleated cells, 1+ gram positive cocci; grew out Klebsiella oxytoca, Staphylococcus aureus, Haemophilus parainfluenzae, and normal yuliya. On blood cultures today there was no growth, MRSA nasal screen was negative. Phosphorus 4.3, magnesium 2.1, iron 36, TIBC 423, percent saturation 9%, unsaturated iron binding less than 408, transferrin 302, ferritin 30. IMAGING: Chest x-ray on 09/29/18 showed cardiomegaly, moderate bilateral pleural effusions, bibasilar consolidation, pulmonary interstitial edema. Chest x-ray on 10/02/18 showed pulmonary interstitial edema left greater than right, bilateral pleural effusions with associated bibasilar atelectasis versus consolidation. EKG on 09/29/18 showed atrial fibrillation, right bundle branch block and left posterior fascicular block, no changes since previous EKG of 01/20/18. Transthoracic echocardiogram on 09/30/18 showed no significant change since January 2018. EF 35% to 40%, [id number] mitral regurgitation, moderate aortic stenosis. CONSULTATIONS: GI on 10/01/18, Dr. Puja Rivera. The patient was noted to have a PEG adapter that was not sitting securely. It was exchanged. No leaking was appreciated. The bumper on the abdomen was tightened. The site looked okay. HOSPITAL COURSE: The patient was initially admitted. He was felt to have recurrent aspiration pneumonia. It was discussed with the patient that he was at increased risk for aspirating even with the PEG tube. The issue of hospice was brought up with him on admission. He was interested in hearing about it, but the following day requested that he continue his MOLST form orders which are that he would accept temporary intubation if needed. He was started on Zosyn (piperacillin/tazobactam). Tube feeds were initially held and restarted. He was given a trial of albuterol nebulizer. Initially, his spironolactone and Lasix were held. He was given IV Lasix and his BNP came down. He ruled out for an DC. Echocardiogram was repeated and showed no change in his cardiac function or worsening of his aortic stenosis. His usual medications were then continued. He was treated with carbidopa/levodopa for his Parkinson disease. It was noted that he did have iron deficiency. He was treated for his iron deficiency with 3 doses of iron sucrose. Hopefully, this will restore his iron and will improve his iron stores. His blood counts will be followed. We may consider PEG tube iron in the future. He got up to walk with assistance during his hospitalization. We qualified him for oxygen, while he is in the hospital he is 92% on room air. He needed O2 in order to keep his O2 sat over 90% with ambulation. He was 95% on 3 L at rest and 91% with ambulation on 5 L. At the time of dictation, [facility]. His diet is PEG tube feedings as before. Activity is up with assistance. He is to get PT and OT. He is to have oxygen as needed to keep his O2 sat over 90%. We discussed whether he wanted to stay on Remeron (mirtazapine) and he did not. He is to be on the following medications: All the medications via PEG tube. 1. Vitamin D3 2000 units. 2. Finasteride 5 mg daily. 3. Spironolactone 25 mg daily. 4. Senna 2 tabs at bedtime as needed. 5. Rosuvastatin 2.5 mg daily. 6. Restasis eye drops both eyes b.i.d. 7. MiraLAX 17 g daily as needed. 8. Pilocarpine 5 mg via PEG tube 3 times a day. 9. Omeprazole 20 mg twice a day. 10. Melatonin 1 tab at bedtime as needed. 11. Furosemide 20 mg daily (of note, the diuretics are being changed from every other day to every day). 12. Carbidopa/levodopa 25/100 3 times a day. 13. Aspirin 81 mg daily. 14. Augmentin 875 mg twice a day for a week. 15. Mylanta every 4 hours as needed for GI distress. 16. Albuterol 2.5 mg via hand held nebulizer every 4 hours as needed. He is to use a flutter valve every 4 hours while awake, incentive spirometry every hour as awake. He is to have labs done as noted on the discharge instructions on 10/06/18. I will be following with the residential. [id number]/[facility] #: [id number] [facility]
[2018-10-03 12:49] VITALS: BP 110/66
== END 2018-10-03 13:40 | DRG 178 ==
LOC: ED 23:18 → MED 09-30 01:49
PROVIDERS: ADMIT Pediatrics; ATTEND Internal Medicine Geriatric Medicine
PROC: 0D20XUZ Change Feeding Device in Upper Intestinal Tract, External Approach (ICD-10-PCS; principal; 2018-10-01)
DX: J69.0 Pneumonitis due to inhalation of food and vomit (principal); K94.23 Gastrostomy malfunction; I45.2 Bifascicular block; I50.9 Heart failure, unspecified; J15.0 Pneumonia due to Klebsiella pneumoniae; J15.211 Pneumonia due to Methicillin susceptible Staphylococcus aureus; I48.2 Chronic atrial fibrillation; G20 Parkinson's disease; R13.12 Dysphagia, oropharyngeal phase; N40.0 Benign prostatic hyperplasia without lower urinary tract symptoms; Z66 Do not resuscitate; D50.9 Iron deficiency anemia, unspecified; R09.02 Hypoxemia; D47.3 Essential (hemorrhagic) thrombocythemia; I08.0 Rheumatic disorders of both mitral and aortic valves; I25.10 Atherosclerotic heart disease of native coronary artery without angina pectoris; Z79.82 Long term (current) use of aspirin; Z79.899 Other long term (current) drug therapy
CPT/HCPCS: 36415; 71046; 80048; 80053; 82728; 83540; 83550; 83605; 83735; 83880; 84100; 84134; 84484; 85025; 85379; 86140; 87040; 87070; 87077; 87186; 87205; 87641; 93005; 93306; 99284; A9270-GY; J1650; J1756; J1940; J2543